=== PATIENT | female | born 1955 | race Caucasian/White ===

== ENCOUNTER → 2016-10-02 | Outpatient (CLI) | payer OTHER ==
[~2016-10-02] MED LIST: ASPI81TA28 PO; ATOR-26 PO; FRRS300 PO; LSN5 PO; MULTTAB58 PO; PANT40TA PO; TPRSR50 PO; TRAM200T16 PO
[2016-10-02 12:12] LABS: BASO % 0.5 %; BASO ABS # 0.03 K/uL (0-0.2); COMPLETE YES; EOS % 2.9 %; HEMATOCRIT 38.5 % (37-47); LYMPH ABS # 2.41 K/uL (1.2-3.4); MEAN CORPUSCULAR HEMOGLOBIN 32.3 pg (25-34); MEAN PLATELET VOLUME 10.8 fL (7.4-10.4); NEUT % 48.6 %; PLATELET COUNT 170 K/uL (130-400); RED BLOOD COUNT 3.93 M/uL (4.2-5.4); WHITE BLOOD COUNT 6.52 K/uL (4.8-10.8)
[2016-10-02 12:28] LABS: ALT/SGPT 50 U/L (12-78); AST/SGOT 29 U/L (15-37); BLOOD UREA NITROGEN 12 mg/dl (7-18); BUN/CREATININE RATIO 13.2 (10-20); CALCIUM 8.8 mg/dl (8.5-10.1); CARBON DIOXIDE 29 mmol/L (21-32); CHLORIDE 108 mmol/L (98-107); CREATININE 0.94 mg/dl (0.60-1.20); GLUCOSE 94 mg/dl (70-99); POTASSIUM 3.9 mmol/L (3.5-5.1); SODIUM 142 mmol/L (136-145)
[2016-10-02 12:39] LABS: ALB/GLOB RATIO 1.2 (0.9-2); ALKALINE PHOSPHATASE 71 U/L (45-117); CHOLESTEROL 149 mg/dl (0-200); CHOLESTEROL/HDL RATIO 1.6; HDL CHOLESTEROL 93 mg/dl; LDL CHOLESTEROL CALCULATED 42 mg/dl; TRIGLYCERIDES 70 mg/dl (0-150); VERY LOW DENSITY LIPOPROT CALC 14 mg/dl
== END | disposition home or self-care (01) ==
LOC: C.LABBFT 07:57
PROVIDERS: ATTEND Physician Assistant Medical
DX: E78.00 Pure hypercholesterolemia, unspecified (principal); M85.80 Other specified disorders of bone density and structure, unspecified site; D64.9 Anemia, unspecified; I25.10 Atherosclerotic heart disease of native coronary artery without angina pectoris

== ENCOUNTER → 2017-02-06 | Outpatient (CLI) | payer OTHER ==
--- NOTE | 2017-02-06 15:20 | MAMMOGRAPHY REPORT ---
BILATERAL DIGITAL SCREENING MAMMOGRAM TOMOSYNTHESIS WITH CAD: 02/06/2017 CLINICAL HISTORY: Routine screening. Patient has no complaints. TECHNIQUE: Breast tomosynthesis in addition to standard 2D mammography was performed. Current study was also evaluated with a Computer Aided Detection (CAD) system. COMPARISON: Comparison is made to exams dated: 11/13/2012 mammogram, 12/12/2010 mammogram - [facility], 02/24/2007, and 09/28/2008. BREAST COMPOSITION: The tissue of both breasts is almost entirely fatty. FINDINGS: No suspicious masses, calcifications, or areas of architectural distortion are noted in ei ther breast. There has been no significant interval change compared to prior exams. IMPRESSION: ACR BI-RADS CATEGORY 1: NEGATIVE There is no mammographic evidence of malignancy. A 1 year screening mammogram is recommended. The pa tient will receive written notification of the results. Approximately 10% of breast cancers are not detected with mammography. A negative mammographic report should not delay biopsy if a clinically suggestive mass is present. Shantel Anne M.D. ah/:02/06/2017 14:57:58 Steam Fitter Supervisor Maintenance: Viviane CAMARGO(Sandeep)(Govind), [facility] letter sent: Normal 1/2 BI-RADS Code: ACR BI-RADS Category 1: Negative
== END | disposition home or self-care (01) ==
LOC: C.MAMM 13:57
PROVIDERS: ATTEND Internal Medicine
DX: Z12.31 Encounter for screening mammogram for malignant neoplasm of breast (principal)

== ENCOUNTER 2017-03-20 07:17 | Inpatient (IN) | payer OTHER ==
[2017-02-28 11:39] VITALS: BMI 37.0
--- NOTE | 2017-02-28 12:19 | PAT Medication Instructions ---
Service Date Feb 28, 2017. Current Home Medication List Acetaminophen W/ Codeine (Acetaminophen/Codeine #3 300-30 mg), 1 TAB PO Q4 PRN for Pain Aspirin (Aspirin Ec), 81 MG PO QPM Atorvastatin (Lipitor), 1 TAB PO HS Doxylamine Succinate (Sleep) (Unisom), 1 TAB PO HS PRN for Sleep Ferrous Sulfate (Ferrous Sulfate), 1 TAB PO QAM Lisinopril (Zestril), 5 MG PO QPM Metoprolol Succinate (Toprol Xl), 1 TAB PO BID Niacin (Niacin), 500 MG PO BID Pantoprazole (Protonix), 40 MG PO BID Pregabalin (Lyrica), 150 MG PO QPM Sucralfate (Carafate), 1 GM PO BID Tramadol Hcl (Tramadol Hcl Er), 200 MG PO DAILY PRN for Pain Medication Instructions For Your Scheduled Surgery - Hold the following medications 24 hours prior to surgery: Lisinopril (Zestril), 5 MG PO QPM Niacin (Niacin), 500 MG PO BID - Hold the following medications the morning of surgery: Sucralfate (Carafate), 1 GM PO BID Ferrous Sulfate (Ferrous Sulfate), 1 TAB PO QAM - Take the following medications the morning of surgery with a sip of water OTHERWISE NOTHING TO EAT OR DRINK AFTER MIDNIGHT: Tramadol Hcl (Tramadol Hcl Er), 200 MG PO DAILY PRN for Pain (may take if needed up to 4 hours prior) Metoprolol Succinate (Toprol Xl), 1 TAB PO BID Pantoprazole (Protonix), 40 MG PO BID Acetaminophen W/ Codeine (Acetaminophen/Codeine #3 300-30 mg), 1 TAB PO Q4 PRN for Pain (may take if needed up to 4 hours prior) - Take the following medications as scheduled the night before surgery: Aspirin (Aspirin Ec), 81 MG PO QPM Atorvastatin (Lipitor), 1 TAB PO HS Doxylamine Succinate (Sleep) (Unisom), 1 TAB PO HS PRN for Sleep Tramadol Hcl (Tramadol Hcl Er), 200 MG PO DAILY PRN for Pain Sucralfate (Carafate), 1 GM PO BID Pregabalin (Lyrica), 150 MG PO QPM Metoprolol Succinate (Toprol Xl), 1 TAB PO BID Pantoprazole (Protonix), 40 MG PO BID Acetaminophen W/ Codeine (Acetaminophen/Codeine #3 300-30 mg), 1 TAB PO Q4 PRN for Pain If you have any questions please call us at [phone] or [phone] or [phone]
--- NOTE | 2017-02-28 13:01 | DIAGNOSTIC IMAGING REPORT ---
CHEST 2 VIEWS ROUTINE CLINICAL HISTORY: PAT preoperative evaluation COMPARISON STUDY: None FINDINGS: Minimal atelectatic change peripheral left lung. Lungs otherwise appear clear. Diaphragms smooth. IMPRESSION: No acute process. The above report was generated using voice recognition software. It may contain grammatical, syntax or spelling errors. Electronically signed by: Riley Falcon M.D. 02/28/2017 1:00 PM Dictated Date/Time: 02/28/2017 12:59 PM
[2017-02-28 13:39] LABS: BASO % 0.5 %; BASO ABS # 0.03 K/uL (0-0.2); EOS % 3.1 %; EOS ABS # 0.19 K/uL (0-0.5); HEMATOCRIT 40.9 % (37-47); HEMOGLOBIN 13.4 g/dL (12.0-16.0); IG# 0.01 K/uL (0.00-0.02); LYMPH % 47.1 %; LYMPH ABS # 2.88 K/uL (1.2-3.4); MEAN CELL VOLUME 98.6 fL (80-100); MEAN CORPUSCULAR HEMOGLOBIN 32.3 pg (25-34); MEAN CORPUSCULAR HGB CONC 32.8 g/dl (32-36); MONO % 12.3 %; MONO ABS # 0.75 K/uL (0.11-0.59); NEUT % 36.8 %; NEUT ABS # 2.26 K/uL (1.4-6.5); PLATELET COUNT 148 K/uL (130-400); RED CELL DISTRIBUTION WIDTH CV 14.5 % (11.5-14.5); RED CELL DISTRIBUTION WIDTH SD 51.5 fL (36.4-46.3); WHITE BLOOD COUNT 6.12 K/uL (4.8-10.8)
[2017-02-28 13:52] LABS: CALCIUM 9.2 mg/dl (8.5-10.1); CREATININE 0.86 mg/dl (0.60-1.20); POTASSIUM 4.3 mmol/L (3.5-5.1)
[2017-02-28 13:58] LABS: INR 1.2 (0.9-1.1); PTT PATIENT 22.9 SECONDS (21.0-31.0)
--- NOTE | 2017-03-15 08:12 | HISTORY & PHYSICAL EXAMINATION ---
DATE OF ADMISSION: 03/20/2017 CHIEF COMPLAINT: Bilateral knee pain and discomfort, right side greater than left. 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 She has got a long history of bilateral knee pain and discomfort managed by my partner Dr. Pineda. She has had an injection, which become less successful over time. The right knee bothers her quite a bit more than left. She has global pain. It is increased with weightbearing. 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 She has nighttime pain. She would like to proceed with surgical treatment. PAST MEDICAL HISTORY: Includes, 1. Unspecified [place] with current residual symptoms, followed by Dr. Smith. 2. Obesity with a BMI of 36.6. 3. Gastroesophageal reflux disease. 4. Low back pain. 5. A quarter pack history of smoking. PAST SURGICAL HISTORY: Includes, 1. Laparoscopic cholecystectomy. 2. Carpal tunnel release. 3. Back surgery x2. 4. Jaw surgery. ALLERGIES: None. CURRENT MEDICINES: Include, 1. Niacin. 2. Diclofenac. 3. Protonix. 4. Lisinopril. 5. Metoprolol. 6. Tramadol. 7. Aspirin. 8. Lyrica. SOCIAL HISTORY: A 61-year-old female. 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 She is from [place]. She is . Two drinks per day. Apparently, she has a quarter pack history of smoking. FAMILY HISTORY: Significant for heart disease and colon cancer. REVIEW OF SYSTEMS: Negative for diabetes. She does have occasional reflux and heartburn. She has a cardiac history, followed by Dr. Smith. No current chest pain or shortness of breath. No history of DVT or PE. PHYSICAL EXAMINATION: GENERAL: Reveals a healthy, pleasant, middle-aged female. She looks to be in pretty good health. HEENT: Benign. NECK: Supple. No lymphadenopathy. LUNGS: Clear to auscultation. HEART: Has a regular rate and rhythm. ABDOMEN: Soft, nontender, and nondistended. EXTREMITIES: Grossly neurovascularly intact except as follows: Examination of both legs reveals that the patient walks with a slight valgus alignment to both her knees. She has got a moderate sized soft tissue envelop bilaterally. Range of motion is pretty symmetrically about 5 degrees short of full extension to 120 degrees of flexion bilaterally. No pain with hip motion on either side. Small knee effusions bilaterally. X-RAYS: X-rays of the right knee revealed advanced knee DJD. She has got complete loss of her lateral joint space. She does have tricompartmental disease. 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 She has failed conservative treatment and would like to have her right knee replaced. PLAN: We are going to take her to the operating room and do a right total knee replacement. The risks and benefits of this procedure were explained to the patient, including but not limited to DVT, PE, , infection, neurological injury, vascular injury, bleeding problems, pain, limited range of motion, stiffness, failure to relieve symptoms, incomplete relief of symptoms, need for further surgery in the future, fracture, leg length inequality, nerve palsy, etc. The patient understands and desires to proceed. Informed consent was obtained. As far as pain control, we are going to probably use Vicodin as she has done okay with that in the past. She knows to hold her lisinopril and diclofenac 2 weeks preop and she will take her metoprolol on the morning of surgery. She is planning to be discharged to home using [facility] home health program.
[~2017-03-20] VITALS: Ht 154.9 cm; Wt 87.8 kg
[2017-03-20] VITALS (11 sets, daily range): BP systolic 88–118; BP diastolic 40–75; PULSE 45–81; TEMP 36.3–37.9; O2SAT 93–100; Ht 154.9 cm; Wt 87.8 kg
[~2017-03-20 07:17] MED LIST changes: +ACET-1056 PO; +ACETAMINOPHEN 500 MG TAB PO SCH; +BUPIVACAINE 0.5 % 5 MG/1 ML PF 10ML VIAL ONE; +BUPIVACAINE LIPOSOME 266 MG, BUPIVACAINE/EPINEPHRINE INJ 50 ML, SODIUM CHLORIDE 0.9% PF... INFIL SCH; +CEFAZOLIN 2000MG IV PUSH 10 ML IV SCH; +DOXY25TA7 PO; +FAMOTIDINE 20 MG TAB PO SCH; +GABAPENTIN 300 MG CAP PO SCH; +LACTATED RINGER'S 1000ML 1,000 ML IV SCH; +LACTATED RINGER'S 1000ML 500 ML IV ONE; +LACTATED RINGER'S 1000ML IV SCH; +LISI-729 PO; -LSN5 PO; +METO25TA3 PO; +METOCLOPRAMIDE HCL 10 MG TAB PO SCH; -MULTTAB58 PO; +NIAC500T11 PO; +PREG1CAP70 PO; +SCOPOLAMINE 1.5 MG TDSY TD SCH; +SUCR1TAB29 PO; -TPRSR50 PO; +TRANEXAMIC ACID INJ 1,000 MG in SYRINGE 0 ML IV SCH
[2017-03-20] MEDS ORDERED: MIDAZOLAM HCL 1 MG/ML 2ML VIAL ONE ×3 (07:44→10:53)
[2017-03-20] MEDS ORDERED: FENTANYL CITRATE INJ 50 MCG/1 ML 2 ML VIAL ONE (07:45)
[2017-03-20] MEDS ORDERED: SODIUM CHLORIDE 0.9% PF 50 ML VIAL ONE (08:09)
[2017-03-20] MEDS ORDERED: BUPIVACAINE LIPOSOME 1/3% 266 MG/20 ML VIAL INFIL ONE (08:09)
[2017-03-20] MEDS ORDERED: BACITRACIN 50000 UNIT VIAL ONE (08:09)
[2017-03-20] MEDS ORDERED: BUPIVACAINE/EPINEPHRINE 0.25% 1:200,000 30 ML VIAL ONE (08:09)
--- NOTE | 2017-03-20 08:38 | History & Physical Bridge Note ---
H&P Re-Evaluation Bridge Note: I have examined the patient, reviewed the History & Physical and in the interval since the performance of the History & Physical I have noted the following changes of clinical significance: No changes noted
[2017-03-20] MEDS ORDERED: EpHEDrine SULFATE INJ 50 MG/ML AMP IV PRN (09:00)
[2017-03-20] MEDS ORDERED: ATROPINE SULFATE 0.1 MG/ML 5ML SYR IV PRN (09:00)
[2017-03-20] MEDS ORDERED: ONDANSETRON INJ 2 MG/ML 2 ML VIAL IV PRN ×2 (09:00→12:00)
[2017-03-20] MEDS ORDERED: FENTANYL CITRATE INJ 50 MCG/1 ML 2 ML VIAL IV PRN (09:00)
--- NOTE | 2017-03-20 11:55 | [facility] Post Operative Brief Note ---
Immediate Operative Summary Operative Date Mar 20, 2017. Pre-Operative Diagnosis Right Knee Advanced Degenerative Joint Disease Post-Operative Diagnosis Right Knee Advanced Degenerative Joint Disease Procedure(s) Performed Right Total Knee Arthroplasty Surgeon Dr. Franco Dredge Pipe Installer Surgeon(s) HENRIETTA Alaniz Estimated Blood Loss 50ml Findings Right Knee DJD Fluids (cc crystalloids) 1300 cc Specimens A. Right Knee Bone and Tissue Drains None Anesthesia Spinal Complication(s) None Disposition Recovery Room / PACU
[2017-03-20] MEDS ORDERED: ALUMINUM/MAGNESIUM/SIMETH (MAALOX MAX) 30 ML UDC PO PRN (12:00)
[2017-03-20] MEDS ORDERED: METOCLOPRAMIDE HCL INJ 5 MG/ML 2 ML VIAL IV PRN (12:00)
[2017-03-20] MEDS ORDERED: HYDROCODONE/ACETAMOPHEN 5/325MG TAB PO PRN (12:00)
[2017-03-20] MEDS ORDERED: DiphenhydrAMINE HCL 50 MG/ML VIAL IV PRN (12:00)
[2017-03-20] MEDS ORDERED: ZOLPIDEM TARTRATE 5 MG TAB PO PRN (12:00)
[2017-03-20] MEDS ORDERED: MoRPHine SULFATE 2 MG/ML CARP IV PRN (12:00)
[2017-03-20] MEDS ORDERED: SILVER SULFADIAZINE 1% CR 50 GM JAR EXT PRN (12:00)
[2017-03-20] MEDS ORDERED: MAGNESIUM HYDROXIDE SUSP 30 ML UDC PO PRN (12:00)
[2017-03-20] MEDS ORDERED: BISACODYL 10 MG SUPP PR PRN (12:00)
--- NOTE | 2017-03-20 12:31 | DIAGNOSTIC IMAGING REPORT ---
RIGHT KNEE 2 VIEWS History: Right total knee arthroplasty. Degenerative arthritis. Postop. FINDINGS: The patient is status post a right total knee arthroplasty. The hardware is intact. No fracture or dislocation. Skin jillian are in place. IMPRESSION: Right total knee arthroplasty. No evidence for hardware complication. Electronically signed by: Luis Alfredo Jackson M.D. 03/20/2017 12:29 PM Dictated Date/Time: 03/20/2017 12:29 PM
[2017-03-20] MEDS: D5W AND 1/2NSS + 20MEQ KCL 1,000 ML IV SCH ×2 (13:42→23:08)
[2017-03-20] MEDS: KETOROLAC TROMETHAMINE 30 MG/ML VIAL IV. SCH ×2 (13:47→20:35)
--- NOTE | 2017-03-20 13:47 | Anesthesiology Progress Note ---
Anesthesia Post Op Note Date & Time Mar 20, 2017 at 13:47 Vital Signs Pain Intensity: 0.0 Vital Signs Past 12 Hours Date Time Temp Pulse Resp B/P (MAP) Pulse Ox O2 Delivery O2 Flow Rate FiO2 03/20/17 13:39 53 16 95/55 (68) 94 Nasal Cannula 2.0 03/20/17 13:18 61 16 92/57 (69) 100 Nasal Cannula 2.0 03/20/17 13:15 96 Nasal Cannula 2.0 03/20/17 12:45 36.3 45 16 99/66 (77) 96 Nasal Cannula 2.0 03/20/17 12:30 36.2 48 14 92/60 100 Nasal Cannula 2 03/20/17 12:22 104/49 03/20/17 12:20 59 18 87/61 100 Nasal Cannula 2 03/20/17 12:10 46 12 102/44 96 Nasal Cannula 2 03/20/17 12:02 36.4 52 14 108/52 97 Nasal Cannula 2 03/20/17 07:56 36.4 69 18 94/54 97 Room Air Notes Mental Status: alert / awake / arousable, participated in evaluation Pt Amnestic to Procedure: Yes Nausea / Vomiting: adequately controlled Pain: adequately controlled Airway Patency, RR, SpO2: stable & adequate BP & HR: stable & adequate Hydration State: stable & adequate Neuraxial Anesthesia: was administered, sensory block is resolving Anesthetic Complications: no major complications apparent
--- NOTE | 2017-03-20 15:23 | OPERATIVE REPORT ---
DATE OF OPERATION: 03/20/2017 PREOPERATIVE DIAGNOSIS: Right knee degenerative joint disease. POSTOPERATIVE DIAGNOSIS: Same. PROCEDURE PERFORMED: Right cemented posterior stabilized total knee arthroplasty. SURGEON: Sami Franco M.D. PRENATAL TEACHER: Wayne Rogers PA-C. COMPLICATIONS: None. ESTIMATED BLOOD LOSS: 50 mL. FLUID REPLACEMENT: 1300 mL crystalloid fluid replacement. TOURNIQUET TIME: 55 minutes at 300 mmHg. ANESTHESIA: Spinal with adductor canal block. DRAINS: None. SPECIMENS: Right knee sent for pathology. 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 She has been managed by my partner Dr. Pineda over time. Her pain became more debilitating and limiting her activities. She elected to proceed with total knee arthroplasty. OPERATIVE FINDINGS: Operative findings revealed advanced right knee DJD. He had extensive grade 4 changes of the patellofemoral joint. She also had extensive grade 4 changes of the lateral compartment. The patellofemoral compartment was the worst. She had a valgus deformity to her knee, a moderate joint effusion. She did have some moderate synovitis as well. OPERATIVE IMPLANTS: 1. Biomet Vanguard size 60 right posterior stabilized femoral component. 2. Biomet size 67 tibial tray. 3. A 12 mm posterior stabilized polyethylene insert. 4. A 31 x 8 all poly patella. OPERATIVE PROCEDURE: The patient was taken to the operating room, identified and placed on the operating room table in supine position. All contact areas were appropriately padded. IV antibiotics were provided by anesthesia team. A spinal anesthetic and adductor canal block had been provided in the holding area. A Frederick catheter was placed in sterile fashion. A right thigh tourniquet was then placed and the right lower extremity was then prepped and draped in the usual sterile fashion. The right leg was elevated and exsanguinated with Esmarch and tourniquet was placed at 300 mmHg. An anterior approach to the right knee was then performed through a longitudinal incision centered over the patella. Sharp dissection was carried down through the subcutaneous tissues down to the level of the extensor mechanism. Medial parapatellar arthrotomy incision was made. Some subperiosteal dissection was carried out medially. The fat pad was resected from beneath the patellar tendon. The lateral patellofemoral ligament was released. The patella was everted and knee was flexed. The osteophytes were taken off the distal femur. The ACL and PCL were then released from the distal femur and the tibia subluxated anteriorly. The external tibial alignment jig was then placed in the anterior face of the tibia and adjusted 12 mm medially. Proximal tibial cut was made to remove about 3-4 mm of bone from the most deficient aspect of the medial tibial plateau. Tibia was sized to a size 67. Attention was then drawn to the femur. The distal femur was entered with a sharp drill bit and intramedullary canal was suctioned. A right 5 degree valgus cutting guide was placed. Distal femoral cutting block was pinned in place. Distal femoral cut was made to take an additional 3 mm of bone off the distal femur. The femur was then sized to a size 60. It sized exactly to a 60. The AP cutting block was pinned parallel to the epicondylar axis which was 3 degrees of external rotation. The anterior cut, anterior chamfer, posterior cut, posterior chamfer cuts were made. A box cutting guide was placed and adjusted slightly lateral and the box cut was made. The knee was brought out into extension. I did release some of the IT band and posterior capsule in order to equalize the extension gap. Great care was taken throughout to protect the peroneal nerve during this procedure. The knee was flexed and the popliteus was released to equalize the flexion gap. Trial femoral component was placed. The tibial tray was pinned in maximum external rotation and the drill and stem punch were used to create defect in the proximal tibia for the tibial tray. The knee was then trialed and the 12 mm insert fit most appropriately. Attention was then drawn to the patella. The patella was cleaned of all soft tissues. The patella thickness measured 21 mm, cut down to 13. It was sized to a size 31 patella. Lug holes were drilled for 31 patella. The lateral osteophyte was removed. Patella button was placed. The knee was taken through range of motion. The patella tracked nicely with no thumbs test. Attention was then drawn toward placement of the permanent components. All trial components were removed. A bone plug was placed in the distal femur to limit blood loss. A double batch of Palacos G cement was mixed. A right size 60 posterior stabilized femoral component, size 67 tibial tray, a 12 mm posterior stabilized polyethylene insert, and a 31 x 8 all poly patella were then cemented in place. The knee was brought out into extension until the cement hardened. A final cement check was then performed. The pericapsular tissues were injected with a total of 100 mL of combination of 20 mL of Exparel, 30 mL of normal saline, 50 mL of 0.25% Marcaine with epinephrine. The patient did receive 1 gram of tranexamic acid. The tourniquet was then let down for a final tourniquet time of 55 minutes. Hemostasis was assured with use of electrocautery. The extensor mechanism was then closed with combination of #1 PDS suture and #1 Vicryl suture in [id number] fashion. The extensor mechanism was checked and found to be intact. The subcutaneous tissues were then closed with 2-0 Dexon suture in a buried interrupted fashion and the skin was closed with skin jillian. The leg was then cleaned and dried and a sterile dressing with Xeroform, 4x4s, sterile cast padding and Mendez bandage were applied. The patient was then transferred to the recovery room in stable condition. The patient tolerated the procedure with no complications. All needle and sponge counts were correct at the end of the operation. I attest to the content of the Intraoperative Record and any orders documented therein. Any exception s are noted below.
[2017-03-20] MEDS: CHECK SCOPOLAMINE PATCH PLACEMENT SCH ×2 (15:51→23:07)
[2017-03-20] MEDS: FERROUS GLUCONATE 324 MG TAB PO SCH (17:33)
[2017-03-20] MEDS: CEFAZOLIN IV 2,000 MG in SYRINGE 0 ML IV SCH (17:57)
[2017-03-20] MEDS ORDERED: TRANEXAMIC ACID INJ 1,000 MG in SODIUM CHLORIDE 0.9% 100ML 100 ML IV SCH (18:00)
[2017-03-20] MEDS: PANTOprazole SOD 40 MG TAB PO SCH (20:36)
[2017-03-20] MEDS: SUCRALFATE 1 GM TAB PO SCH (20:36)
[2017-03-20] MEDS: PREGABALIN 150 MG CAP PO SCH (20:38)
[2017-03-20] MEDS: TAPENTADOL ER 50 MG TABCR PO SCH (20:38)
[2017-03-20] MEDS: NIACIN 500 MG TAB IMMEDIATE RELEASE PO SCH (20:39)
[2017-03-20] MEDS: LISINOPRIL 5 MG TAB PO SCH (21:00)
[2017-03-20] MEDS ORDERED: ASPEC325 PO (21:43)
[2017-03-20] MEDS ORDERED: HYDR-5688 PO (21:43)
--- NOTE | 2017-03-20 21:46 | Discharge Instructions ---
Discharge Instructions Date of Service Mar 20, 2017. Admission Reason for Admission: Right Knee Degenerative Joint Disease Discharge Discharge Diagnosis / Problem: Right Knee Replacement Discharge Goals Goal(s): Decrease discomfort, Improve function, Increase independence, Improve disease control, Therapeutic intervention Activity Recommendations Activity Limitations: per Instructions/Follow-up section Weightbearing Status: Right weightbearing . Instructions / Follow-Up Instructions / Follow-Up ACTIVITY RECOMMENDATIONS: Physical Therapy: * You will go to physical therapy three times each week for four to six weeks after your surgery in order to regain your knee range of motion and to retrain your knee to work properly. * It is just as important to make sure you are getting your knee perfectly straight as it is to regain your knee bend. * Taking a pain pill an hour before therapy can help you have a more productive and comfortable therapy session. Home Exercise: * You were shown a series of exercises (heel props, heel slides, etc.) in the hospital. Do these exercises three to four times each day including the exercises you were shown in physical therapy. Walking: * Get up and walk several times each day. For the first four weeks, try not to stand or walk for more than one hour at a time. If you do stand or walk for more than one hour, you will not hurt anything, but your knee and leg will likely swell. * As you feel comfortable, you may change from the walker or crutches to a cane and then to independent walking. MEDICATIONS: New Medicine: * You will likely be taking one or more of these medications: 1. Vicoden/Mad[place] - A quick and shorter-acting pain medication. Take one to two tablets every four to six hours to lessen your pain. 2. Iron Sulfate - take each day for the month after surgery to help you replace the blood lost during surgery. 3. Aspirin - Thins your blood to lessen the chance of forming a blood clot. * The most common side effects of pain medicine and iron are nausea and constipation. If nausea or constipation is too much of a problem or if you have any questions about your new medicines or doses, call [facility] at . We will try to help you manage these issues. VERY IMPORTANT TO READ AND REVIEW" Pain: * The immediate post-operative period after knee replacement surgery is often quite painful. * You are given a prescription for pain medicine. You should take it, as directed, when you need it, especially before physical therapy and before going to bed. Pain that interferes with sleep is very common and can last several months. * You will likely need pain medicine for the first four to six weeks. It will not stop all of the pain. The pain will lessen and as you feel better, you may change to milder pain medicine such as Tylenol. * The most common side effects of pain medicine are nausea and constipation, so don't take more than you need. SPECIAL CARE INSTRUCTIONS: TEDs/Elastic Stockings: * The white elastic stockings help limit swelling and prevent blood clots from forming in your legs. The more you wear them, the more they work. * Wear them for six weeks after knee replacement surgery and four weeks after partial knee replacement. Prevention of Infection: * Take antibiotics one hour before any dental cleaning, dental work, urological procedure, gastrointestinal procedure or any invasive surgery in order to prevent your new joint from getting infected. * You may get the antibiotics from the doctor performing the procedure or you may call our office at before and we will call in a prescription to the pharmacy of your choice. Things to Watch For: * Drainage from the incision site that occurs more than one week after your surgery. * Severely increased knee/leg pain or swelling. * Increased redness at the incision site. * Fever above 102 degrees Fahrenheit. * Unusual chest pain or shortness of breath. * Unusual pain or burning with urination. Call [facility] at with any of the above problems or if you have any questions about your medicines or recovery. FOLLOW UP VISIT: Make an appointment to see your doctor for approximately two weeks after surgery for a progress check and staple removal by calling the office at . Current Hospital Diet Patient's current hospital diet: Regular Diet Discharge Diet Recommended Diet: Regular Diet Procedures Procedures Performed: Right Total Knee Arthroplasty Pending Studies Studies pending at discharge: no Medical Emergencies . Who to Call and When: Medical Emergencies: If at any time you feel your situation is an emergency, please call [phone] immediately. . Non-Emergent Contact Non-Emergency issues call your: Surgeon . "Provider Documentation" section prepared by Sami Franco. . VTE Core Measure Inpt VTE Proph given/why not?: Other Anticoagulation, T.E.D. Stockings, SCD's
[2017-03-20] MEDS: ATORVASTATIN 40 MG TAB PO SCH (21:53)
[2017-03-20] MEDS: ASPIRIN 325 MG ECTAB PO SCH (21:54)
[2017-03-20] MEDS: SENNA 8.6 MG TAB PO SCH (21:54)
[2017-03-20] MEDS: DOCUSATE SODIUM 100 MG CAP PO SCH (21:55)
[2017-03-20] MEDS: METOPROLOL SUCC 25MG EXT REL TAB PO SCH (21:56)
--- NOTE | 2017-03-20 22:38 | PROGRESS NOTE ---
DATE: 03/20/2017 SUBJECTIVE: A 61-year-old female postop from a right knee replacement. She is doing well. Just starting to get the feeling back in her leg. No chest pain or shortness of breath. Not feeling dizzy or lightheaded. OBJECTIVE: VITAL SIGNS: Temperature 36.4. Vital signs stable. A little bradycardic. GENERAL: Pleasant, middle-aged female. She is lying in bed and I had to wake her this afternoon. LUNGS: Clear to auscultation. HEART: Regular rate and rhythm. ABDOMEN: Soft, nontender, nondistended. EXTREMITIES: Grossly neurovascularly intact except as follows. Examination of the right leg reveals the dressing to be clean, dry and intact. She can dorsiflex and plantar flex her foot appropriately. She does have sensation in her foot. She has got brisk refill. X-RAYS: X-rays of the right knee from today are reviewed. It shows a cemented posterior total knee arthroplasty. Components looked to be in good position. No signs of problems. ASSESSMENT: A 61-year-old female postop from a right knee replacement, doing well. The feeling is just coming back in her leg. She appears neurologically intact. Pain is controlled. PLAN: 1. Deep venous thrombosis prophylaxis including thigh-high TEDs, SCDs, and aspirin twice a day. 2. PT/OT. Weightbearing as tolerated. Right total knee protocol. 3. Pain control, doing pretty well with current pain regimen. 4. IV antibiotics x24 hours. 5. Disposition. Plan to discharge to home and she will likely have home health or do outpatient therapy depending on how she does in the next 24 hours.
[2017-03-21] VITALS (11 sets, daily range): BP systolic 101–127; BP diastolic 66–75; PULSE 73–95; TEMP 37–38.4; O2SAT 93–97
[2017-03-21] MEDS: KETOROLAC TROMETHAMINE 30 MG/ML VIAL IV. SCH ×5 (01:53→19:31)
[2017-03-21] MEDS: CEFAZOLIN IV 2,000 MG in SYRINGE 0 ML IV SCH (01:53)
[2017-03-21 06:01] LABS: HEMATOCRIT 35.2 % (37-47); HEMOGLOBIN 11.9 g/dL (12.0-16.0); MEAN CELL VOLUME 93.6 fL (80-100); MEAN CORPUSCULAR HEMOGLOBIN 31.6 pg (25-34); MEAN CORPUSCULAR HGB CONC 33.8 g/dl (32-36); MEAN PLATELET VOLUME 9.6 fL (7.4-10.4); PLATELET COUNT 152 K/uL (130-400); RED CELL DISTRIBUTION WIDTH CV 13.4 % (11.5-14.5); RED CELL DISTRIBUTION WIDTH SD 46.2 fL (36.4-46.3); WHITE BLOOD COUNT 5.04 K/uL (4.8-10.8)
[2017-03-21 06:36] LABS: CALCIUM 8.6 mg/dl (8.5-10.1); CREATININE 1.02 mg/dl (0.60-1.20)
[2017-03-21] MEDS: CHECK SCOPOLAMINE PATCH PLACEMENT SCH ×2 (08:00→15:49)
--- NOTE | 2017-03-21 08:13 | PROGRESS NOTE ---
DATE: 03/21/2017 SUBJECTIVE: 61-year-old female postop day 1 from a right knee replacement. She is doing pretty well. Pain is controlled. Had pretty good night. No chest pain or shortness of breath. Not feeling dizzy or lightheaded. OBJECTIVE: VITAL SIGNS: Temperature 37.4. Vital signs stable. GENERAL: Reveals a healthy, pleasant 61-year-old female. She is lying in bed, looks pretty comfortable. EXTREMITIES: Examination of the right leg reveals dressing clean, dry and intact. She can dorsiflex and plantarflex her foot appropriately. She is neurologically intact. LABORATORY DATA: Hemoglobin 11.9, hematocrit 35.2. Electrolytes are stable. ASSESSMENT: 61-year-old female postop day 1 from right knee replacement, doing pretty well. PLAN: 1. DVT prophylaxis including thigh high TEDs, SCDs, and aspirin twice a day. 2. PT, OT. Weightbearing as tolerated. Right total knee protocol. 3. Pain control, doing pretty well with current pain regimen. 4. Disposition: She is planning to be discharge to home with some home health once adequately recovered.
--- NOTE | 2017-03-21 08:33 | Anesthesiology Progress Note ---
Anesthesia Post Op Note Date & Time Mar 21, 2017 at 08:32 Vital Signs Pain Intensity: 4.0 Vital Signs Past 12 Hours Date Time Temp Pulse Resp B/P (MAP) Pulse Ox O2 Delivery O2 Flow Rate FiO2 03/21/17 07:54 37.3 73 16 117/74 (88) 97 Room Air 03/21/17 03:15 37.4 03/21/17 03:14 37.7 73 16 104/66 (79) 93 Room Air 03/20/17 23:32 37.3 03/20/17 23:29 37.9 81 16 109/70 (83) 93 Room Air 03/20/17 21:50 78 109/67 (81) Notes Mental Status: alert / awake / arousable, participated in evaluation Pt Amnestic to Procedure: Yes Nausea / Vomiting: adequately controlled Pain: adequately controlled Airway Patency, RR, SpO2: stable & adequate BP & HR: stable & adequate Hydration State: stable & adequate Neuraxial Anesthesia: sensory block resolved Anesthetic Complications: no major complications apparent
[2017-03-21] MEDS ORDERED: PANTOprazole SOD 40 MG TAB PO SCH (09:00)
[2017-03-21] MEDS: ASPIRIN 325 MG ECTAB PO SCH ×2 (09:16→20:48)
[2017-03-21] MEDS: METOPROLOL SUCC 25MG EXT REL TAB PO SCH ×2 (09:16→20:50)
[2017-03-21] MEDS: DOCUSATE SODIUM 100 MG CAP PO SCH ×2 (09:16→20:48)
[2017-03-21] MEDS: D5W AND 1/2NSS + 20MEQ KCL 1,000 ML IV SCH (09:16)
[2017-03-21] MEDS: SUCRALFATE 1 GM TAB PO SCH ×2 (09:17→20:48)
[2017-03-21] MEDS: PANTOprazole SOD 40 MG TAB PO SCH ×2 (09:17→20:49)
[2017-03-21] MEDS: NIACIN 500 MG TAB IMMEDIATE RELEASE PO SCH ×2 (09:17→20:49)
[2017-03-21] MEDS: TAPENTADOL ER 50 MG TABCR PO SCH ×2 (09:25→20:49)
[2017-03-21] MEDS: MULTIVITAMIN TAB PO SCH (10:18)
[2017-03-21] MEDS: FERROUS GLUCONATE 324 MG TAB PO SCH ×3 (10:18→17:53)
[2017-03-21] MEDS: SENNA 8.6 MG TAB PO SCH (20:49)
[2017-03-21] MEDS: ATORVASTATIN 40 MG TAB PO SCH (20:49)
[2017-03-21] MEDS: PREGABALIN 150 MG CAP PO SCH (20:49)
[2017-03-21] MEDS: LISINOPRIL 5 MG TAB PO SCH (20:50)
[2017-03-22] MEDS: KETOROLAC TROMETHAMINE 30 MG/ML VIAL IV. SCH ×2 (02:00→08:00)
[2017-03-22 07:39] VITALS: BP 116/66; PULSE 91; TEMP 37.8; O2SAT 93
[2017-03-22] MEDS: CHECK SCOPOLAMINE PATCH PLACEMENT SCH ×2 (08:12)
[2017-03-22] MEDS: ASPIRIN 325 MG ECTAB PO SCH (08:35)
[2017-03-22] MEDS: FERROUS GLUCONATE 324 MG TAB PO SCH (08:35)
[2017-03-22] MEDS: DOCUSATE SODIUM 100 MG CAP PO SCH (08:35)
[2017-03-22] MEDS: PANTOprazole SOD 40 MG TAB PO SCH (08:35)
[2017-03-22] MEDS: METOPROLOL SUCC 25MG EXT REL TAB PO SCH (08:36)
[2017-03-22] MEDS: MULTIVITAMIN TAB PO SCH (08:36)
[2017-03-22] MEDS: TAPENTADOL ER 50 MG TABCR PO SCH (08:36)
[2017-03-22] MEDS: SUCRALFATE 1 GM TAB PO SCH (08:36)
[2017-03-22] MEDS: NIACIN 500 MG TAB IMMEDIATE RELEASE PO SCH (08:36)
[2017-03-22 12:34] VITALS: BP 116/66; PULSE 91; TEMP 37.8; O2SAT 93
--- NOTE | 2017-04-01 15:44 | DISCHARGE SUMMARY ---
ADMITTING PHYSICIAN AND SURGEON: Dr. Franco. ADMITTING DIAGNOSIS: Right knee degenerative joint disease. SURGERY PERFORMED: Right total knee arthroplasty. SECONDARY DIAGNOSES: Myocardial infarction, obesity, gastroesophageal reflux disease, low back pain and smoking history. CONSULTS: None obtained. HISTORY AND PHYSICAL EXAMINATION: Well documented in the patient's chart. HOSPITAL COURSE: The patient admitted on 03/20/2017 and underwent a total knee arthroplasty, tolerated the procedure well and there were no complications. She was transferred to PACU postoperatively and later to the orthopedic floor for further care. She was given Ancef for antibiotic prophylaxis; ISABEL stockings, SCDs and aspirin for DVT prophylaxis. Hemoglobin, hematocrit and vital signs were monitored during her hospital stay and remained stable. She did not require blood transfusions. There were no complications. By postoperative day #2, she was tolerating a regular diet, pain was controlled with oral pain medicine; she was participating in physical therapy and had no signs or symptoms of deep vein thrombosis. On postop day #2, she was discharged home and set up with home health services. She was given printed discharge instructions including new prescriptions for aspirin 325 mg b.i.d., [place] for pain. Continue her home medications with the exception of her home doses of aspirin and Tylenol with codeine, which she was instructed to stop. Continue physical therapy, weightbearing as tolerated and ISABEL stockings. Follow up in 10-12 days or sooner if there are any problems or concerns.
== END 2017-03-22 15:00 | disposition home health service (06) | DRG 470 ==
LOC: C.ACU 07:17 → C.3E 11:59 → ENRESERV 12:26
PROVIDERS: ADMIT Orthopaedic Surgery Sports Medicine; ATTEND Orthopaedic Surgery Sports Medicine
PROC: 0SRC0J9 Replacement of Right Knee Joint with Synthetic Substitute, Cemented, Open Approach (ICD-10-PCS; principal; 2017-03-20 09:30)
DX: M17.11 Unilateral primary osteoarthritis, right knee (principal); I25.2 Old myocardial infarction; E66.9 Obesity, unspecified; Z68.36 Body mass index [BMI] 36.0-36.9, adult; K21.9 Gastro-esophageal reflux disease without esophagitis; Z79.82 Long term (current) use of aspirin; Z82.49 Family history of ischemic heart disease and other diseases of the circulatory system; Z80.0 Family history of malignant neoplasm of digestive organs

== ENCOUNTER 2018-05-15 05:48 | Inpatient (IN) ==
[2018-05-15] MEDS ORDERED: KETOROLAC TROMETHAMINE 15 MG/ML VIAL IV STA (06:02)
[2018-05-15] MEDS ORDERED: METOCLOPRAMIDE HCL INJ 5 MG/ML 2 ML VIAL IV STA (06:02)
[2018-05-15] MEDS ORDERED: DiphenhydrAMINE HCL 50 MG/ML VIAL IV STA (06:02)
[2018-05-15] MEDS ORDERED: DICYCLOMINE HCL 10 MG/ML 2 ML AMP/VIAL IM ONE (06:02)
--- NOTE | 2018-05-15 06:11 | Emergency Department Note ---
History of Present Illness General Chief complaint: Abdominal Pain Stated complaint: ADOMINAL PAIN Time Seen by Provider: 05/15/18 07:03 History of Present Illness Maximum Pain Intensity: 9 This 63-year-old presents to the ER complaining of vomiting and abdominal pain Location: Abdomen Quality: Crampy Severity: Moderate Duration: 3 days Timin days ago Context: Abdominal pain got worse and patient came in Modifying factors: better with nothing; worse with palpation Patient states Saturday she started with vomiting and then the pain developed. Patient denies chest pain, dyspnea, fevers, diarrhea, back pain, urinary symptoms, flulike illness. Colonoscopy in the past was normal. No history of diverticulitis. Home Medications Home Medications Medication Instructions Recorded Confirmed Type aspirin 81 mg tablet,delayed 81 mg PO DAILY 01/13/18 05/15/18 History release atorvastatin 80 mg tablet 80 mg PO HS tab 01/13/18 05/15/18 History lisinopril 5 mg tablet 5 mg PO DAILY 01/13/18 05/15/18 History niacin 500 mg tablet 500 mg PO BID tab 01/13/18 05/15/18 History sucralfate 1 gram tablet 2 gm PO BID tab 01/13/18 05/15/18 History tramadol ER 200 mg tablet,extended 200 mg PO DAILY PRN 01/13/18 05/15/18 History release 24 hr metoprolol tartrate 25 mg PO BID 05/15/18 05/15/18 History pregabalin [Lyrica] 225 mg PO BID 05/15/18 05/15/18 History tramadol 50 mg PO Q6H PRN 05/15/18 05/15/18 History Allergies Allergy/AdvReac Type Severity Reaction Status Date / Time Iodinated Contrast- Oral and Allergy Mild rash Unverified 05/15/18 19:05 IV Dye tapentadol [From Nucynta] AdvReac Unknown Confusion Verified 05/15/18 06:44 Past Med/Surg History Medical History Epidural fibrosis (Chronic) left S1 nerve Tobacco use (Chronic) Obesity (Chronic) Osteoarthritis (Chronic) GERD (gastroesophageal reflux disease) (Chronic) Hyperlipidemia (Chronic) Hypertension (Chronic) Lumbar postlaminectomy syndrome (Chronic) Left lumbar radiculitis (Chronic) Myofascial pain (Chronic) Cervicalgia (Chronic) Cervical facet syndrome (Chronic) Cervical spinal stenosis (Chronic) C5-6 History of VT (myocardial infarction) (Chronic) CAD (coronary artery disease) (Chronic) Cervical radiculitis (Resolved) Surgical History H/O heart artery stent (Resolved) History of PTCA (Resolved) History of bilateral tubal ligation (Resolved) History of carpal tunnel release (Resolved) History of cholecystectomy (Resolved) History of lumbar fusion (Resolved) Posterior decompression and instrumented fusion of L4-S1 03/19/2014 Dr. Montesinos History of mandibular surgery (Resolved) S/P lumbar laminectomy (Resolved 03/19/14) S/P total knee arthroplasty (Resolved) Right Social History Current Living Situation: Spouse Other Information That Helps Us Care for You: No Feels Safe at Home: Yes Safety Concerns: Feels Safe At This Time Smoking Status: Current every day smoker Tobacco Type: cigarettes Cigarettes per Day: 1/2 ppd Do You Dip or Chew Tobacco: No Second Hand Exposure: Yes Tobacco Cessation Education Requested by Patient: No Hx Alcohol Use: Yes Alcohol type: wine Alcohol Intake Frequency: holidays/ special occasions only Hx Substance Use: No Beliefs That Will Affect Care: None Preferred Language: Albanian Communication Ability: Effective Marble Worker Required: No Review of Systems All systems reviewed & are unremarkable except as noted in HPI & below Physical Exam Vital Signs Vital Signs - 24 hr 05/15/18 05:53 05/15/18 06:40 05/15/18 07:16 Temperature 36.4 C L Temperature Source Oral Sepsis Recent Fever Within 48 Hours No Sepsis Action Taken by Nursing No Action Required Pulse Rate 79 Pulse Rate [Apical] Pulse Rate [Right Finger] 66 Pulse Rate from SpO2 Sensor Pulse Rhythm Regular Pulse Rhythm [Apical] Pulse Rhythm [Right Finger] Pulse Strength Normal Pulse Strength [Apical] Pulse Strength [Right Finger] Respiratory Rate 18 20 Respiratory Effort / Characteristics Non-Labored Spontaneous Non-Labored Respiratory Depth Normal Normal Respiratory Pattern Blood Pressure 100/69 Blood Pressure [Left Arm] 144/75 H Blood Pressure Mean 79 Blood Pressure Mean [Left Arm] 98 Blood Pressure Position Sitting Blood Pressure Position [Left Arm] Pulse Oximetry 96 95 Oxygen Delivery Method Room Air Room Air Room Air Oxygen Flow Rate 05/15/18 10:03 05/15/18 10:50 05/15/18 10:56 Temperature 37.4 C Temperature Source Oral Sepsis Recent Fever Within 48 Hours Sepsis Action Taken by Nursing Pulse Rate Pulse Rate [Apical] Pulse Rate [Right Finger] 72 68 Pulse Rate from SpO2 Sensor Pulse Rhythm Pulse Rhythm [Apical] Pulse Rhythm [Right Finger] Regular Pulse Strength Pulse Strength [Apical] Pulse Strength [Right Finger] Normal Respiratory Rate 20 20 16 Respiratory Effort / Characteristics Non-Labored Non-Labored Accessory Muscle Use Respiratory Depth Normal Normal Respiratory Pattern Regular Blood Pressure 108/69 Blood Pressure [Left Arm] 109/66 128/74 Blood Pressure Mean Blood Pressure Mean [Left Arm] 80 92 Blood Pressure Position Blood Pressure Position [Left Arm] Sitting Pulse Oximetry 90 94 92 Oxygen Delivery Method Room Air Room Air Room Air Oxygen Flow Rate 05/15/18 13:43 05/15/18 13:50 05/15/18 14:00 Temperature 36.6 C Temperature Source Temporal Artery Scan Sepsis Recent Fever Within 48 Hours Sepsis Action Taken by Nursing Pulse Rate Pulse Rate [Apical] 90 85 95 H Pulse Rate [Right Finger] Pulse Rate from SpO2 Sensor Pulse Rhythm Pulse Rhythm [Apical] Regular Regular Regular Pulse Rhythm [Right Finger] Pulse Strength Pulse Strength [Apical] Pulse Strength [Right Finger] Respiratory Rate 17 21 24 Respiratory Effort / Characteristics Non-Labored Non-Labored Non-Labored Respiratory Depth Normal Normal Normal Respiratory Pattern Regular Regular Regular Blood Pressure Blood Pressure [Left Arm] 71/53 L 99/56 L 91/59 L Blood Pressure Mean Blood Pressure Mean [Left Arm] 59 70 69 Blood Pressure Position Blood Pressure Position [Left Arm] Lying Lying Lying Pulse Oximetry 100 99 99 Oxygen Delivery Method Oxymask Oxymask Oxymask Oxygen Flow Rate 10 10 10 05/15/18 14:10 05/15/18 14:20 05/15/18 14:30 Temperature Temperature Source Sepsis Recent Fever Within 48 Hours Sepsis Action Taken by Nursing Pulse Rate Pulse Rate [Apical] 98 H 104 H 104 H Pulse Rate [Right Finger] Pulse Rate from SpO2 Sensor Pulse Rhythm Pulse Rhythm [Apical] Regular Regular Regular Pulse Rhythm [Right Finger] Pulse Strength Pulse Strength [Apical] Pulse Strength [Right Finger] Respiratory Rate 22 22 21 Respiratory Effort / Characteristics Non-Labored Non-Labored Non-Labored Respiratory Depth Normal Normal Normal Respiratory Pattern Regular Regular Regular Blood Pressure Blood Pressure [Left Arm] 99/59 L 89/59 L 85/58 L Blood Pressure Mean Blood Pressure Mean [Left Arm] 72 69 67 Blood Pressure Position Blood Pressure Position [Left Arm] Lying Lying Lying Pulse Oximetry 99 96 97 Oxygen Delivery Method Oxymask Oxymask Oxymask Oxygen Flow Rate 10 2 2 05/15/18 14:40 05/15/18 14:50 05/15/18 14:55 Temperature Temperature Source Sepsis Recent Fever Within 48 Hours Sepsis Action Taken by Nursing Pulse Rate Pulse Rate [Apical] 112 H 110 H 103 H Pulse Rate [Right Finger] Pulse Rate from SpO2 Sensor Pulse Rhythm Pulse Rhythm [Apical] Regular Regular Regular Pulse Rhythm [Right Finger] Pulse Strength Pulse Strength [Apical] Pulse Strength [Right Finger] Respiratory Rate 24 22 22 Respiratory Effort / Characteristics Non-Labored Non-Labored Non-Labored Respiratory Depth Normal Normal Normal Respiratory Pattern Regular Regular Regular Blood Pressure Blood Pressure [Left Arm] 91/62 L 85/58 L 101/66 Blood Pressure Mean Blood Pressure Mean [Left Arm] 71 67 77 Blood Pressure Position Blood Pressure Position [Left Arm] Lying Lying Lying Pulse Oximetry 97 97 98 Oxygen Delivery Method Oxymask Oxymask Oxymask Oxygen Flow Rate 2 2 2 05/15/18 15:00 05/15/18 15:10 05/15/18 15:20 Temperature Temperature Source Sepsis Recent Fever Within 48 Hours Sepsis Action Taken by Nursing Pulse Rate Pulse Rate [Apical] 105 H 103 H 100 H Pulse Rate [Right Finger] Pulse Rate from SpO2 Sensor Pulse Rhythm Pulse Rhythm [Apical] Regular Regular Regular Pulse Rhythm [Right Finger] Pulse Strength Pulse Strength [Apical] Pulse Strength [Right Finger] Respiratory Rate 22 21 19 Respiratory Effort / Characteristics Non-Labored Non-Labored Non-Labored Respiratory Depth Normal Normal Normal Respiratory Pattern Regular Regular Regular Blood Pressure Blood Pressure [Left Arm] 104/62 97/64 L 106/65 Blood Pressure Mean Blood Pressure Mean [Left Arm] 76 75 78 Blood Pressure Position Blood Pressure Position [Left Arm] Lying Lying Lying Pulse Oximetry 99 98 98 Oxygen Delivery Method Oxymask Oxymask Oxymask Oxygen Flow Rate 2 2 2 05/15/18 15:30 05/15/18 15:40 05/15/18 15:50 Temperature Temperature Source Sepsis Recent Fever Within 48 Hours Sepsis Action Taken by Nursing Pulse Rate Pulse Rate [Apical] 102 H 109 H 108 H Pulse Rate [Right Finger] Pulse Rate from SpO2 Sensor Pulse Rhythm Pulse Rhythm [Apical] Regular Regular Regular Pulse Rhythm [Right Finger] Pulse Strength Pulse Strength [Apical] Pulse Strength [Right Finger] Respiratory Rate 20 22 22 Respiratory Effort / Characteristics Non-Labored Non-Labored Non-Labored Respiratory Depth Normal Normal Normal Respiratory Pattern Regular Regular Regular Blood Pressure Blood Pressure [Left Arm] 101/64 105/70 104/66 Blood Pressure Mean Blood Pressure Mean [Left Arm] 76 81 78 Blood Pressure Position Blood Pressure Position [Left Arm] Lying Lying Lying Pulse Oximetry 97 97 95 Oxygen Delivery Method Oxymask Oxymask Oxymask Oxygen Flow Rate 2 2 2 05/15/18 16:00 05/15/18 16:10 05/15/18 16:20 Temperature Temperature Source Sepsis Recent Fever Within 48 Hours Sepsis Action Taken by Nursing Pulse Rate Pulse Rate [Apical] 112 H 113 H 127 H Pulse Rate [Right Finger] Pulse Rate from SpO2 Sensor Pulse Rhythm Pulse Rhythm [Apical] Regular Regular Regular Pulse Rhythm [Right Finger] Pulse Strength Pulse Strength [Apical] Pulse Strength [Right Finger] Respiratory Rate 22 22 20 Respiratory Effort / Characteristics Non-Labored Non-Labored Non-Labored Respiratory Depth Normal Normal Normal Respiratory Pattern Regular Regular Regular Blood Pressure Blood Pressure [Left Arm] 102/63 108/63 95/58 L Blood Pressure Mean Blood Pressure Mean [Left Arm] 76 78 70 Blood Pressure Position Blood Pressure Position [Left Arm] Lying Lying Lying Pulse Oximetry 95 97 93 Oxygen Delivery Method Oxymask Oxymask Oxymask Oxygen Flow Rate 2 2 2 05/15/18 16:30 05/15/18 16:40 05/15/18 16:50 Temperature 37.4 C Temperature Source Temporal Artery Scan Sepsis Recent Fever Within 48 Hours Sepsis Action Taken by Nursing Pulse Rate Pulse Rate [Apical] 134 H 126 H 128 H Pulse Rate [Right Finger] Pulse Rate from SpO2 Sensor Pulse Rhythm Pulse Rhythm [Apical] Regular Regular Regular Pulse Rhythm [Right Finger] Pulse Strength Pulse Strength [Apical] Pulse Strength [Right Finger] Respiratory Rate 23 23 21 Respiratory Effort / Characteristics Non-Labored Non-Labored Non-Labored Respiratory Depth Normal Normal Normal Respiratory Pattern Regular Regular Regular Blood Pressure Blood Pressure [Left Arm] 86/57 L 96/54 L 96/58 L Blood Pressure Mean Blood Pressure Mean [Left Arm] 66 68 70 Blood Pressure Position Blood Pressure Position [Left Arm] Lying Lying Lying Pulse Oximetry 92 92 94 Oxygen Delivery Method Oxymask Oxymask Oxymask Oxygen Flow Rate 2 4 4 05/15/18 17:00 05/15/18 17:10 05/15/18 17:20 Temperature 37.7 C H Temperature Source Oral Sepsis Recent Fever Within 48 Hours Sepsis Action Taken by Nursing Pulse Rate Pulse Rate [Apical] 123 H 123 H 127 H Pulse Rate [Right Finger] Pulse Rate from SpO2 Sensor Pulse Rhythm Pulse Rhythm [Apical] Regular Regular Regular Pulse Rhythm [Right Finger] Pulse Strength Pulse Strength [Apical] Pulse Strength [Right Finger] Respiratory Rate 21 22 20 Respiratory Effort / Characteristics Non-Labored Non-Labored Non-Labored Respiratory Depth Normal Normal Normal Respiratory Pattern Regular Regular Regular Blood Pressure Blood Pressure [Left Arm] 91/49 L 91/51 L 87/54 L Blood Pressure Mean Blood Pressure Mean [Left Arm] 63 64 65 Blood Pressure Position Blood Pressure Position [Left Arm] Lying Lying Lying Pulse Oximetry 94 93 93 Oxygen Delivery Method Oxymask Oxymask Oxymask Oxygen Flow Rate 4 4 4 05/15/18 17:30 05/15/18 17:40 05/15/18 17:50 Temperature Temperature Source Sepsis Recent Fever Within 48 Hours Sepsis Action Taken by Nursing Pulse Rate Pulse Rate [Apical] 126 H 115 H 110 H Pulse Rate [Right Finger] Pulse Rate from SpO2 Sensor Pulse Rhythm Pulse Rhythm [Apical] Regular Regular Regular Pulse Rhythm [Right Finger] Pulse Strength Pulse Strength [Apical] Pulse Strength [Right Finger] Respiratory Rate 21 17 18 Respiratory Effort / Characteristics Non-Labored Non-Labored Non-Labored Respiratory Depth Normal Normal Normal Respiratory Pattern Regular Regular Regular Blood Pressure Blood Pressure [Left Arm] 84/51 L 84/47 L 87/49 L Blood Pressure Mean Blood Pressure Mean [Left Arm] 62 59 61 Blood Pressure Position Blood Pressure Position [Left Arm] Lying Lying Lying Pulse Oximetry 93 94 95 Oxygen Delivery Method Oxymask Oxymask Oxymask Oxygen Flow Rate 4 4 4 05/15/18 18:00 05/15/18 18:13 05/15/18 18:30 Temperature 37.3 C Temperature Source Sepsis Recent Fever Within 48 Hours Sepsis Action Taken by Nursing Pulse Rate 101 H 100 H Pulse Rate [Apical] 104 H Pulse Rate [Right Finger] Pulse Rate from SpO2 Sensor 101 H 101 H Pulse Rhythm Pulse Rhythm [Apical] Regular Pulse Rhythm [Right Finger] Pulse Strength Pulse Strength [Apical] Pulse Strength [Right Finger] Respiratory Rate 20 18 22 Respiratory Effort / Characteristics Non-Labored Respiratory Depth Normal Respiratory Pattern Regular Blood Pressure 94/65 L Blood Pressure [Left Arm] 122/65 Blood Pressure Mean 74 Blood Pressure Mean [Left Arm] 84 Blood Pressure Position Blood Pressure Position [Left Arm] Lying Pulse Oximetry 96 94 95 Oxygen Delivery Method Oxymask Nasal Cannula Oxygen Flow Rate 4 4 05/15/18 19:03 05/15/18 19:07 05/15/18 19:16 Temperature 37.3 C Temperature Source Oral Sepsis Recent Fever Within 48 Hours Sepsis Action Taken by Nursing Pulse Rate 113 H 120 H Pulse Rate [Apical] 111 H Pulse Rate [Right Finger] Pulse Rate from SpO2 Sensor 112 H 120 H Pulse Rhythm Pulse Rhythm [Apical] Regular Pulse Rhythm [Right Finger] Pulse Strength Pulse Strength [Apical] Normal Pulse Strength [Right Finger] Respiratory Rate 22 16 23 Respiratory Effort / Characteristics Non-Labored Spontaneous Respiratory Depth Normal Respiratory Pattern Regular Blood Pressure 124/75 120/65 Blood Pressure [Left Arm] 124/75 Blood Pressure Mean 91 83 Blood Pressure Mean [Left Arm] 91 Blood Pressure Position Blood Pressure Position [Left Arm] Pulse Oximetry 95 94 93 Oxygen Delivery Method Nasal Cannula Oxygen Flow Rate 4 05/15/18 19:34 05/15/18 19:45 05/15/18 20:00 Temperature Temperature Source Sepsis Recent Fever Within 48 Hours Sepsis Action Taken by Nursing Pulse Rate 133 H 143 H 107 H Pulse Rate [Apical] Pulse Rate [Right Finger] Pulse Rate from SpO2 Sensor 134 H 141 H 107 H Pulse Rhythm Pulse Rhythm [Apical] Pulse Rhythm [Right Finger] Pulse Strength Pulse Strength [Apical] Pulse Strength [Right Finger] Respiratory Rate 21 21 16 Respiratory Effort / Characteristics Respiratory Depth Respiratory Pattern Blood Pressure 98/66 L 81/58 L Blood Pressure [Left Arm] Blood Pressure Mean 76 65 Blood Pressure Mean [Left Arm] Blood Pressure Position Blood Pressure Position [Left Arm] Pulse Oximetry 94 93 94 Oxygen Delivery Method Oxygen Flow Rate 05/15/18 20:01 05/15/18 20:15 05/15/18 20:26 Temperature Temperature Source Sepsis Recent Fever Within 48 Hours Sepsis Action Taken by Nursing Pulse Rate 111 H 103 H 101 H Pulse Rate [Apical] Pulse Rate [Right Finger] Pulse Rate from SpO2 Sensor 109 H 103 H Pulse Rhythm Pulse Rhythm [Apical] Pulse Rhythm [Right Finger] Pulse Strength Pulse Strength [Apical] Pulse Strength [Right Finger] Respiratory Rate 15 17 Respiratory Effort / Characteristics Respiratory Depth Respiratory Pattern Blood Pressure 105/63 103/69 Blood Pressure [Left Arm] Blood Pressure Mean 77 80 Blood Pressure Mean [Left Arm] Blood Pressure Position Blood Pressure Position [Left Arm] Pulse Oximetry 94 93 Oxygen Delivery Method Oxygen Flow Rate 05/15/18 20:30 Temperature Temperature Source Sepsis Recent Fever Within 48 Hours Sepsis Action Taken by Nursing Pulse Rate 103 H Pulse Rate [Apical] Pulse Rate [Right Finger] Pulse Rate from SpO2 Sensor 103 H Pulse Rhythm Pulse Rhythm [Apical] Pulse Rhythm [Right Finger] Pulse Strength Pulse Strength [Apical] Pulse Strength [Right Finger] Respiratory Rate 19 Respiratory Effort / Characteristics Respiratory Depth Respiratory Pattern Blood Pressure 99/61 L Blood Pressure [Left Arm] Blood Pressure Mean 73 Blood Pressure Mean [Left Arm] Blood Pressure Position Blood Pressure Position [Left Arm] Pulse Oximetry 95 Oxygen Delivery Method Oxygen Flow Rate VITALS: Vitals are noted on the nurse's note and reviewed by myself. Vital signs stable. GENERAL: White female who appears in pain, in no acute distress, nondiaphoretic , well-developed well-nourished. SKIN: The skin was without rashes, erythema, edema, or bruising. There is no tenting of the skin. Capillary reflex less than 2 seconds. HEAD: Normocephalic atraumatic. EARS: External auditory canals clear, tympanic membranes pearly goldsmith without erythema or effusion bilaterally. EYES: Pupils equal round and reactive to light and accommodation. Conjunctivae without injection, sclerae without icterus. Extraocular movements intact. NOSE: Patent, turbinates without inflammation or discharge. MOUTH: Mucous membranes moist. Pharynx without erythema or exudate. Uvula midline. Airway patent. Tongue does not deviate. NECK: Supple without nuchal rigidity. No lymphadenopathy. No thyromegaly. Cervical spine is nontender. No JVD. HEART: Regular rate and rhythm without murmurs gallops or rubs. LUNGS: Clear to auscultation bilaterally without wheezes, rales or rhonchi. No retractions or accessory muscle use. ABDOMEN: Positive bowel sounds x 4. Normal tympanic percussion. Soft, tender to palpation lower abdomen, without masses or organomegaly. Lee sign negative. No guarding or rebound tenderness. No CVA tenderness MUSCULOSKELETAL: No muscle atrophy, erythema, or edema noted. NEURO: Patient was alert and oriented to person place and time. Normal sensation to light and sharp touch. No focal neurological deficits. Course Administered Medications Hydromorphone HCl (Dilaudid) 1 mg IV Q3H PRN PRN Reason: Pain Stop: 05/29/18 18:13 Last Admin: 05/15/18 19:17 Dose: 1 mg Lactated Ringer's (Lr) 1,000 mls @ 125 mls/hr IV .Q8H MARK Stop: 06/14/18 13:44 Last Admin: 05/15/18 19:59 Dose: 125 mls/hr Infusion: 05/15/18 19:59 Dose: 125 mls/hr Admin: 05/15/18 15:30 Dose: 125 mls/hr Norepinephrine Bitartrate 8 mg (/ Dextrose) 508 mls @ 29.71 mls/hr IV .Q17H6M MARK; Protocol Stop: 06/14/18 17:44 Last Admin: 05/15/18 17:52 Dose: 0.1 mcg/kg/min, 30 mls/hr Magnesium Sulfate/Dextrose (Magnesium Sulfate / D5w) 1 gm in 100 mls @ 100 mls/ hr IV Q1H MARK Stop: 05/15/18 21:59 Last Admin: 05/15/18 20:42 Dose: 100 mls/hr Infusion: 05/15/18 20:42 Dose: 100 mls/hr Admin: 05/15/18 20:02 Dose: 100 mls/hr Ioversol (Optiray 320 100ml) 93 ml IV ONCE PRN PRN Reason: Interaction Checking Stop: 05/19/18 07:04 Last Admin: 05/15/18 07:08 Dose: 93 ml Ketorolac Tromethamine (Toradol) 30 mg IV Q6H MARK Stop: 05/20/18 19:59 Last Admin: 05/15/18 19:16 Dose: 30 mg Discontinued Medications Acetaminophen (Ofirmev) Confirm Administered Dose 1,000 mg IV .STK-MED ONE Stop: 05/15/18 16:37 Last Admin: 05/15/18 16:38 Dose: 1,000 mg Bupivacaine HCl (Marcaine 0.5% Mpf) Confirm Administered Dose 30 ml .ROUTE .STK- MED ONE Stop: 05/15/18 10:03 Last Admin: 05/15/18 13:12 Dose: 30 ml Bupivacaine Liposome (Exparel) Confirm Administered Dose 266 mg .ROUTE .STK-MED ONE Stop: 05/15/18 12:19 Last Admin: 05/15/18 13:12 Dose: 266 mg Dicyclomine HCl (Bentyl) 20 mg IM NOW ONE Stop: 05/15/18 06:03 Last Admin: 05/15/18 06:44 Dose: 20 mg Diphenhydramine HCl (Benadryl) 25 mg IV NOW STA Stop: 05/15/18 06:03 Last Admin: 05/15/18 06:42 Dose: 25 mg Sodium Chloride (Nss 1000ml) 1,000 mls @ 999 mls/hr IV .Q1H1M MARK Stop: 05/15/18 07:15 Last Infusion: 05/15/18 08:38 Dose: 0 mls/hr Admin: 05/15/18 06:37 Dose: 999 mls/hr Cefazolin Sodium (Ancef 2000mg) 2,000 mg in 15 mls @ 3.75 mls/min IV ONCE MARK; Protocol Stop: 05/15/18 14:00 Last Admin: 05/15/18 11:26 Dose: 3.75 mls/min Acetaminophen (Ofirmev) 1,000 mg in 100 mls @ 400 mls/hr IV Q8H MARK Stop: 06/14/18 13:59 Last Admin: 05/15/18 18:38 Dose: Not Given Albumin Human (Albumin 5%) 250 mls @ 500 mls/hr IV UD MARK Stop: 05/18/18 14:14 Last Infusion: 05/15/18 14:42 Dose: 0 mls/hr Admin: 05/15/18 14:12 Dose: 500 mls/hr Hard Fat/Phenylephrine 20 mg/ (Dextrose) 502 mls @ 46.98 mls/hr IV .[id number] MARK ; Protocol Stop: 05/15/18 18:00 Last Titration: 05/15/18 15:55 Dose: 0.1 mcg/kg/min, 11.7 mls/hr Titration: 05/15/18 15:25 Dose: 0.2 mcg/kg/min, 23.5 mls/hr Titration: 05/15/18 15:16 Dose: 0.3 mcg/kg/min, 35.2 mls/hr Admin: 05/15/18 14:43 Dose: 0.5 mcg/kg/min, 58.7 mls/hr Albumin Human (Albumin 5%) 250 mls @ 500 mls/hr IV UD MARK Stop: 05/18/18 15:14 Last Infusion: 05/15/18 15:27 Dose: 0 mls/hr Admin: 05/15/18 14:53 Dose: 500 mls/hr Albumin Human (Albumin 5%) 250 mls @ 500 mls/hr IV NOW ONE Stop: 05/15/18 18:29 Last Admin: 05/15/18 20:09 Dose: Not Given Ketorolac Tromethamine (Toradol) 10 mg IV NOW STA Stop: 05/15/18 06:03 Last Admin: 05/15/18 06:39 Dose: 10 mg Metoclopramide HCl (Reglan) 10 mg IV NOW STA Stop: 05/15/18 06:03 Last Admin: 05/15/18 06:40 Dose: 10 mg Medical Decision Making Medical Records Attestation: I reviewed the patient's medical records. Home Medications Current Medication List: was personally reviewed by me Laboratory Data Attestation: I reviewed the patient's lab results. Result diagrams: 05/15/18 18:30 05/15/18 18:30 Lab Results 05/15/18 05/15/18 05/15/18 Range/Units 06:20 06:25 06:25 WBC 10.29 (4.8-10.8) K/uL RBC 4.80 (4.2-5.4) M/uL Hgb 15.8 (12.0-16.0) g/dL POC Hgb (12.0-16.0) g/dl Hct 46.0 (37-47) % POC Hct (37-47) % MCV 95.8 (80-100) fL MCH 32.9 (25-34) pg MCHC 34.3 (32-36) g/dL RDW Std Deviation 48.1 H (36.4-46.3) fL RDW Coeff of Tigre 13.8 (11.5-14.5) % Plt Count 150 (130-400) K/uL MPV 10.8 H (7.4-10.4) fL Immature Gran % (Auto) 0.3 % Neut % (Auto) 77.2 % Lymph % (Auto) 13.9 % [place] % (Auto) 8.1 % Eos % (Auto) 0.3 % Baso % (Auto) 0.2 % Immature Gran # (Auto) 0.03 H (0.00-0.02) K/uL Neut # (Auto) 7.95 H (1.4-6.5) K/uL Lymph # (Auto) 1.43 (1.2-3.4) K/uL [place] # (Auto) 0.83 H (0.11-0.59) K/uL Eos # (Auto) 0.03 (0-0.5) K/uL Baso # (Auto) 0.02 (0-0.2) K/uL POC Sodium (135-144) mEq/L Sodium 140 (136-145) mmol/L POC Potassium (3.3-5.0) mEq/L Potassium 3.4 L (3.5-5.1) mmol/L POC Chloride (101-112) mEq/L Chloride 101 (98-107) mmol/L Carbon Dioxide 31 (21-32) mmol/L POC Total CO2 (24-31) mEq/l Anion Gap 8.0 (3-11) POC Anion Gap (16-25) mmol/L POC BUN (7-18) mg/dl BUN 11 (7-18) mg/dl Creatinine 0.86 (0.6-1.2) mg/dl POC Creatinine (0.6-1.3) mg/dl Est Cr Clr Drug Dosing 62.5 ml/min Est GFR ( Amer) 82.7 Est GFR (Non-Af Amer) 71.4 BUN/Creatinine Ratio 13.2 (10-20) Glucose 109 H (70-99) mg/dl POC Glucose (other) (70-99) mg/dl Calcium 9.7 (8.5-10.1) mg/dl POC Ioniz Calcium Geovanna (1.12-1.32) mmol/l Phosphorus (2.5-4.9) mg/dl Magnesium (1.8-2.4) mg/dl Total Bilirubin 0.7 (0.2-1) mg/dl AST 22 (15-37) U/L ALT 36 (12-78) U/L Alkaline Phosphatase 55 (45-117) U/L Total Creatine Kinase (26-192) U/L CK-MB (CK-2) (0.5-3.6) ng/ml CK/CKMB % Calc (0-3.0) Troponin I (0-0.045) ng/ml Total Protein 7.1 (6.4-8.2) gm/dl Albumin 3.5 (3.4-5.0) gm/dl Globulin 3.6 (2.5-4.0) gm/dl Albumin/Globulin Ratio 1.0 (0.9-2) Lipase 82 (73-393) U/L Procalcitonin (0-0.5) ng/ml Urine Color Dark Yellow Urine Appearance Clear (Clear) Urine pH 7.0 (4.5-7.5) Ur Specific [place] 1.021 (1.000-1.030) Urine Protein Negative (Negative) Urine Glucose (UA) Negative (Negative) Urine Ketones 2+ H (Negative) Urine Blood Negative (Negative) Urine Nitrite Negative (Negative) Urine Bilirubin Negative (Negative) Urine Urobilinogen Positive H (Negative) Ur Leukocyte Esterase Negative (Negative) Nasal Screen MRSA (PCR) (Negative) 05/15/18 05/15/18 05/15/18 Range/Units 06:25 06:30 15:05 WBC (4.8-10.8) K/uL RBC (4.2-5.4) M/uL Hgb 16.4 H (12.0-16.0) g/dL POC Hgb 15.3 (12.0-16.0) g/dl Hct 49.8 H (37-47) % POC Hct 45 (37-47) % MCV (80-100) fL MCH (25-34) pg MCHC (32-36) g/dL RDW Std Deviation (36.4-46.3) fL RDW Coeff of Tigre (11.5-14.5) % Plt Count (130-400) K/uL MPV (7.4-10.4) fL Immature Gran % (Auto) % Neut % (Auto) % Lymph % (Auto) % [place] % (Auto) % Eos % (Auto) % Baso % (Auto) % Immature Gran # (Auto) (0.00-0.02) K/uL Neut # (Auto) (1.4-6.5) K/uL Lymph # (Auto) (1.2-3.4) K/uL [place] # (Auto) (0.11-0.59) K/uL Eos # (Auto) (0-0.5) K/uL Baso # (Auto) (0-0.2) K/uL POC Sodium 140 (135-144) mEq/L Sodium (136-145) mmol/L POC Potassium 3.4 (3.3-5.0) mEq/L Potassium (3.5-5.1) mmol/L POC Chloride 97 L (101-112) mEq/L Chloride (98-107) mmol/L Carbon Dioxide (21-32) mmol/L POC Total CO2 31 (24-31) mEq/l Anion Gap (3-11) POC Anion Gap 16.0 (16-25) mmol/L POC BUN 11 (7-18) mg/dl BUN (7-18) mg/dl Creatinine (0.6-1.2) mg/dl POC Creatinine 0.8 (0.6-1.3) mg/dl Est Cr Clr Drug Dosing ml/min Est GFR ( Amer) Est GFR (Non-Af Amer) BUN/Creatinine Ratio (10-20) Glucose (70-99) mg/dl POC Glucose (other) 114 H (70-99) mg/dl Calcium (8.5-10.1) mg/dl POC Ioniz Calcium Geovanna 1.19 (1.12-1.32) mmol/l Phosphorus (2.5-4.9) mg/dl Magnesium (1.8-2.4) mg/dl Total Bilirubin (0.2-1) mg/dl AST (15-37) U/L ALT (12-78) U/L Alkaline Phosphatase (45-117) U/L Total Creatine Kinase (26-192) U/L CK-MB (CK-2) (0.5-3.6) ng/ml CK/CKMB % Calc (0-3.0) Troponin I < 0.015 (0-0.045) ng/ml Total Protein (6.4-8.2) gm/dl Albumin (3.4-5.0) gm/dl Globulin (2.5-4.0) gm/dl Albumin/Globulin Ratio (0.9-2) Lipase (73-393) U/L Procalcitonin (0-0.5) ng/ml Urine Color Urine Appearance (Clear) Urine pH (4.5-7.5) Ur Specific [place] (1.000-1.030) Urine Protein (Negative) Urine Glucose (UA) (Negative) Urine Ketones (Negative) Urine Blood (Negative) Urine Nitrite (Negative) Urine Bilirubin (Negative) Urine Urobilinogen (Negative) Ur Leukocyte Esterase (Negative) Nasal Screen MRSA (PCR) (Negative) 05/15/18 05/15/18 05/15/18 Range/Units 15:07 18:30 18:30 WBC 2.67 L D (4.8-10.8) K/uL RBC 4.26 (4.2-5.4) M/uL Hgb 13.8 (12.0-16.0) g/dL POC Hgb (12.0-16.0) g/dl Hct 40.6 (37-47) % POC Hct (37-47) % MCV 95.3 (80-100) fL MCH 32.4 (25-34) pg MCHC 34.0 (32-36) g/dL RDW Std Deviation 47.9 H (36.4-46.3) fL RDW Coeff of Tigre 14.0 (11.5-14.5) % Plt Count 105 L (130-400) K/uL MPV 11.5 H (7.4-10.4) fL Immature Gran % (Auto) 0.4 % Neut % (Auto) 82.4 % Lymph % (Auto) 7.1 % [place] % (Auto) 10.1 % Eos % (Auto) 0.0 % Baso % (Auto) 0.0 % Immature Gran # (Auto) 0.01 (0.00-0.02) K/uL Neut # (Auto) 2.20 (1.4-6.5) K/uL Lymph # (Auto) 0.19 L (1.2-3.4) K/uL [place] # (Auto) 0.27 (0.11-0.59) K/uL Eos # (Auto) 0.00 (0-0.5) K/uL Baso # (Auto) 0.00 (0-0.2) K/uL POC Sodium (135-144) mEq/L Sodium 141 (136-145) mmol/L POC Potassium (3.3-5.0) mEq/L Potassium 3.1 L (3.5-5.1) mmol/L POC Chloride (101-112) mEq/L Chloride 107 (98-107) mmol/L Carbon Dioxide 28 (21-32) mmol/L POC Total CO2 (24-31) mEq/l Anion Gap 6.0 (3-11) POC Anion Gap (16-25) mmol/L POC BUN (7-18) mg/dl BUN 11 (7-18) mg/dl Creatinine 0.89 (0.6-1.2) mg/dl POC Creatinine (0.6-1.3) mg/dl Est Cr Clr Drug Dosing 60.4 ml/min Est GFR ( Amer) 79.4 Est GFR (Non-Af Amer) 68.5 BUN/Creatinine Ratio 12.8 (10-20) Glucose 129 H (70-99) mg/dl POC Glucose (other) (70-99) mg/dl Calcium 8.3 L (8.5-10.1) mg/dl POC Ioniz Calcium Geovanna (1.12-1.32) mmol/l Phosphorus 2.5 (2.5-4.9) mg/dl Magnesium 0.9 L* (1.8-2.4) mg/dl Total Bilirubin (0.2-1) mg/dl AST (15-37) U/L ALT (12-78) U/L Alkaline Phosphatase (45-117) U/L Total Creatine Kinase (26-192) U/L CK-MB (CK-2) (0.5-3.6) ng/ml CK/CKMB % Calc (0-3.0) Troponin I < 0.015 (0-0.045) ng/ml Total Protein (6.4-8.2) gm/dl Albumin (3.4-5.0) gm/dl Globulin (2.5-4.0) gm/dl Albumin/Globulin Ratio (0.9-2) Lipase (73-393) U/L Procalcitonin (0-0.5) ng/ml Urine Color Urine Appearance (Clear) Urine pH (4.5-7.5) Ur Specific [place] (1.000-1.030) Urine Protein (Negative) Urine Glucose (UA) (Negative) Urine Ketones (Negative) Urine Blood (Negative) Urine Nitrite (Negative) Urine Bilirubin (Negative) Urine Urobilinogen (Negative) Ur Leukocyte Esterase (Negative) Nasal Screen MRSA (PCR) (Negative) 05/15/18 05/15/18 05/15/18 Range/Units 18:30 18:30 18:30 WBC (4.8-10.8) K/uL RBC (4.2-5.4) M/uL Hgb (12.0-16.0) g/dL POC Hgb (12.0-16.0) g/dl Hct (37-47) % POC Hct (37-47) % MCV (80-100) fL MCH (25-34) pg MCHC (32-36) g/dL RDW Std Deviation (36.4-46.3) fL RDW Coeff of Tigre (11.5-14.5) % Plt Count (130-400) K/uL MPV (7.4-10.4) fL Immature Gran % (Auto) % Neut % (Auto) % Lymph % (Auto) % [place] % (Auto) % Eos % (Auto) % Baso % (Auto) % Immature Gran # (Auto) (0.00-0.02) K/uL Neut # (Auto) (1.4-6.5) K/uL Lymph # (Auto) (1.2-3.4) K/uL [place] # (Auto) (0.11-0.59) K/uL Eos # (Auto) (0-0.5) K/uL Baso # (Auto) (0-0.2) K/uL POC Sodium (135-144) mEq/L Sodium (136-145) mmol/L POC Potassium (3.3-5.0) mEq/L Potassium (3.5-5.1) mmol/L POC Chloride (101-112) mEq/L Chloride (98-107) mmol/L Carbon Dioxide (21-32) mmol/L POC Total CO2 (24-31) mEq/l Anion Gap (3-11) POC Anion Gap (16-25) mmol/L POC BUN (7-18) mg/dl BUN (7-18) mg/dl Creatinine (0.6-1.2) mg/dl POC Creatinine (0.6-1.3) mg/dl Est Cr Clr Drug Dosing ml/min Est GFR ( Amer) Est GFR (Non-Af Amer) BUN/Creatinine Ratio (10-20) Glucose (70-99) mg/dl POC Glucose (other) (70-99) mg/dl Calcium (8.5-10.1) mg/dl POC Ioniz Calcium [place]ovanna (1.12-1.32) mmol/l Phosphorus (2.5-4.9) mg/dl Magnesium (1.8-2.4) mg/dl Total Bilirubin (0.2-1) mg/dl AST (15-37) U/L ALT (12-78) U/L Alkaline Phosphatase (45-117) U/L Total Creatine Kinase 84 (26-192) U/L CK-MB (CK-2) 1.0 (0.5-3.6) ng/ml CK/CKMB % Calc 1.2 (0-3.0) Troponin I 0.019 (0-0.045) ng/ml Total Protein (6.4-8.2) gm/dl Albumin (3.4-5.0) gm/dl Globulin (2.5-4.0) gm/dl Albumin/Globulin Ratio (0.9-2) Lipase (73-393) U/L Procalcitonin 23.08 H (0-0.5) ng/ml Urine Color Urine Appearance (Clear) Urine pH (4.5-7.5) Ur Specific [place] (1.000-1.030) Urine Protein (Negative) Urine Glucose (UA) (Negative) Urine Ketones (Negative) Urine Blood (Negative) Urine Nitrite (Negative) Urine Bilirubin (Negative) Urine Urobilinogen (Negative) Ur Leukocyte Esterase (Negative) Nasal Screen MRSA (PCR) Negative (Negative) MDM Narrative Prior records/ancillary studies reviewed. Triage Nursing notes reviewed. Additional history obtained from family. The patient's history was concerning for abdominal pain with vomiting. Differential diagnosis: Etiologies such as appendicitis, diverticulitis, PUD, biliary pathology, UTI, pancreatitis, obstruction, mesenteric ischemia, aortic pathology, infections, inflammatory bowel disease, renal colic, as well as others were entertained. Physical examination findings: As above. ER treatment provided: IV fluids, Reglan IV, Benadryl, Bentyl On reassessment the patient felt better. Diagnostics interpreted by me: ECG: Normal sinus, normal intervals, T wave inversion in aVL, rate of 57, EKG compared to prior EKG. Impression sinus bradycardia with T wave inversion in aVL which is old from prior chart review interpreted by myself. I think arrhythmia is unlikely. EKG shows normal sinus rhythm with no interval abnormalities such as QT prolongation or WPW. There are no findings to suggest Brugada syndrome. Cardiac monitoring in the emergency department reveals no tachycardic or bradycardic dysrhythmia. Hypertrophic cardiomyopathy was considered but there are no clear historical elements pointing toward this. EKG is not suggestive. The QRS voltage is not extremely large and there are no suggestive Q waves. The labs revealed no leukocytosis. Stable H&H. Imaging studies: Pending Exam and history seem consistent with abdominal pain and vomiting pending CT. Case signed out to Nidia Yadav, nurse practitioner, pending CT and labs and reevaluation in stable condition. The chart was completed utilizing [employer] Speech voice recognition software. Grammatical errors, random word insertions, pronoun errors, and incomplete sentences are an occassional consequence of this system due to software limitations, ambient noise, and hardware issues. Any formal questions or concerns about the content, text, or information contained within the body of this dictation should be directly addressed to the physician assistant customer service manager for clarification. Impression & Plan Vomiting, Abdominal pain, Small bowel obstruction, Complicated unilateral incarcerated femoral hernia Discharge Plan Visit Data *Final* Discharge Date/Time: 05/15/18 10:50 Chief Complaint: Abdominal Pain Stated Complaint: ADOMINAL PAIN ED Provider: Candida Daniels ED Midlevel Provider: Nidia Yadav Discharge Problem: Vomiting, Abdominal pain, Small bowel obstruction, Complicated unilateral incarcerated femoral hernia Patient Disposition: Still a Patient Condition: Good Discharge Instructions Interventions: ED Discharge Assessment Last Done: 05/15/18 10:50
[2018-05-15] MEDS ORDERED: SODIUM CHLORIDE 0.9% 1000ML 1,000 ML IV SCH (06:15)
[2018-05-15 06:42] LABS: Basophils # (auto) 0.02 K/uL (0-0.2); Basophils % (auto) 0.2 %; Eosinophils # (auto) 0.03 K/uL (0-0.5); Eosinophils % (auto) 0.3 %; Hemoglobin 15.8 g/dL (12.0-16.0); Immature Granulocytes # (auto) 0.03 K/uL (0.00-0.02); Immature Granulocytes % (auto) 0.3 %; Lymphocytes # (auto) 1.43 K/uL (1.2-3.4); Lymphocytes % (auto) 13.9 %; Mean Corpuscular Hgb Conc 34.3 g/dL (32-36); Mean Corpuscular Volume 95.8 fL (80-100); Mean Platelet Volume 10.8 fL (7.4-10.4); Monocytes # (auto) 0.83 K/uL (0.11-0.59); Monocytes % (auto) 8.1 %; Neutrophils # (auto) 7.95 K/uL (1.4-6.5); Neutrophils % (auto) 77.2 %; Platelet Count 150 K/uL (130-400); RDW Coefficient of Variation 13.8 % (11.5-14.5); RDW Standard Deviation 48.1 fL (36.4-46.3); White Blood Count 10.29 K/uL (4.8-10.8)
[2018-05-15 06:44] LABS: iSTAT Creatinine 0.8 mg/dl (0.6-1.3); iSTAT Hemoglobin 15.3 g/dl (12.0-16.0); iSTAT Ionized Calcium 1.19 mmol/l (1.12-1.32); iSTAT Potassium 3.4 mEq/L (3.3-5.0)
[2018-05-15 06:59] LABS: Appearance Urine Clear (Clear); Blood Urine Negative (Negative); Color Urine Dark Yellow; Glucose Urine UA Negative (Negative); Ketones Urine 2+ (Negative); Leukocyte Esterase Urine Negative (Negative); Nitrite Urine Negative (Negative); Protein Urine Negative (Negative); Specific Gravity Urine 1.021 (1.000-1.030); Urobilinogen Urine Positive (Negative)
[2018-05-15 07:02] LABS: Albumin Level 3.5 gm/dl (3.4-5.0); BUN Creatinine Ratio 13.2 (10-20); Calcium 9.7 mg/dl (8.5-10.1); Creatinine Clr Calc Pharmacy 62.5 ml/min; Est GFR (African American) 82.7; Est GFR (Non-African American) 71.4; Potassium 3.4 mmol/L (3.5-5.1)
[2018-05-15 07:04] LABS: Bilirubin,Total 0.7 mg/dl (0.2-1); Globulin 3.6 gm/dl (2.5-4.0); Total Protein 7.1 gm/dl (6.4-8.2)
[2018-05-15] MEDS ORDERED: IOVERSOL 100ml IV PRN (07:05)
--- NOTE | 2018-05-15 07:05 | Emergency Department Note ---
ED Provider Note I received sign out from Chayo Shore PA-C at change of shift. Pt presented with abdominal pain and vomiting. Labs and CT are pending. INTERPRETATION OF LABS: No leukocytosis, no anemia, normal platelets, mild hypokalemia, no other significant electrolyte abnormalities, normal renal function, normal liver enzymes and lipase. Troponin negative. UA shows 2+ ketones and urobilinogen, otherwise negative for infection or blood. IMAGING: CT abd pelvis IV con only CLINICAL HISTORY: 63 years-old Female presenting with lower abd pain. TECHNIQUE: Multidetector CT of the abdomen and pelvis was performed after the administration of intravenous contrast. IV contrast: 93 mL of Optiray 320. One or more dose lowering techniques were used consistent with the principles of ALARA (as low as reasonably achievable), including automatic exposure control, mA or kV adjustment to individual patient size, and/or use of iterative reconstruction. COMPARISON: None. CT DOSE (mGy.cm): The estimated cumulative dose is 530.49 mGy.cm. FINDINGS: Soaping Machine Back Tender topogram: Cholecystectomy clips. Lung bases: Normal heart size. No pericardial or pleural effusion. Bandlike and groundglass opacities in the lung bases likely atelectasis. Liver: Normal morphology. Subcentimeter irregular hypodense lesion in the posterior right hepatic lobe, indeterminate though possibly hemangioma (series 3 image 84). Patent hepatic vasculature. Biliary: Mild biliary ductal prominence likely a reservoir effect in the post cholecystectomy state. Gallbladder surgically absent. Pancreas: Moderate parenchymal atrophy. Spleen: Normal. Adrenal glands: Normal. Kidneys and ureters: Normal renal parenchyma. Nonobstructing punctate right renal calculus. Extrarenal pelvis on the right. No hydronephrosis. Ureters nondistended. Bladder: Incompletely evaluated secondary to underdistention. Pelvic organs: Globular appearance of the uterus may imply underlying fibroids. Alternatively, the lobular appearance along the left fundus may be ovarian in etiology (series 3 image 307. Bowel: The colon is decompressed. The cecum is located in the right upper quadrant. The appendix is not visualized. Significant distention of proximal small bowel is a diameter of over 3 cm. Dilated small bowel is primarily fluid containing. There is a smooth transition to slightly less dilated small bowel in the jejunum. Interloop fluid is evident within the mesenteric leaves. There is a focal transition point at the right femoral hernia. There is small amount of fluid within the hernia sac as well as the small bowel loop. Small bowel distal to to this site is completely decompressed. Peritoneal cavity: Trace free fluid within the leaves of the mesentery. No free intraperitoneal gas. Free fluid in the hernia sac as mentioned. Lymph nodes: No enlarged lymph nodes in the abdomen or pelvis. Vasculature: Atherosclerosis of the normal caliber abdominal aorta. IVC patent. There is mild compression of the traversing right common femoral vein along the right femoral hernia. Abdominal wall: No additional abdominal wall hernia identified. Musculoskeletal: Degenerative changes of the spine. IMPRESSION: 1. Complete small bowel obstruction with a transition point at the right femoral hernia. Complete decompression of distal small bowel and colon. Surgical consultation and decompression advised. 2. Indeterminate subcentimeter hypodense lesion in the right hepatic lobe, which is favored to represent a hemangioma. If there is a history of malignancy or hepatocellular risk factors, further evaluation with dedicated liver MRI would be recommended. I evaluated the patient, she appears comfortable, and reports that her pain and nausea are well controlled at this time. Patient denies any history of bowel obstruction in the past. She does note history of liver hemangioma. The patient was updated on all results and plan for admission for surgery, she verbalized understanding and was agreeable to this plan. I spoke with Geoffrey Matta PA-C with general surgery, who agrees to evaluate the patient for surgery. He did not recommend NG tube placement at this time. Patient was stable at time of admission/OR. This chart was completed utilizing [employer] Speech voice recognition software. Grammatical errors, random word insertions, pronoun errors, and incomplete sentences are an occasional consequence of this system due to software limitations, ambient noise, and hardware issues. Any formal questions or concerns about the content, text, or information contained within the body of this dictation should be directly addressed to the nurse practitioner for clarification. Impression & Plan Vomiting, Abdominal pain, Small bowel obstruction, Complicated unilateral incarcerated femoral hernia Past Med/Surg History Medical History Epidural fibrosis (Chronic) left S1 nerve Tobacco use (Chronic) Obesity (Chronic) Osteoarthritis (Chronic) GERD (gastroesophageal reflux disease) (Chronic) Hyperlipidemia (Chronic) Hypertension (Chronic) Lumbar postlaminectomy syndrome (Chronic) Left lumbar radiculitis (Chronic) Myofascial pain (Chronic) Cervicalgia (Chronic) Cervical facet syndrome (Chronic) Cervical spinal stenosis (Chronic) C5-6 History of VA (myocardial infarction) (Chronic) CAD (coronary artery disease) (Chronic) Cervical radiculitis (Resolved) Surgical History H/O heart artery stent (Resolved) History of PTCA (Resolved) History of bilateral tubal ligation (Resolved) History of carpal tunnel release (Resolved) History of cholecystectomy (Resolved) History of lumbar fusion (Resolved) Posterior decompression and instrumented fusion of L4-S1 03/19/2014 Dr. Montesinos History of mandibular surgery (Resolved) S/P lumbar laminectomy (Resolved 03/19/14) S/P total knee arthroplasty (Resolved) Right Social History Feels Safe at Home: Yes Smoking Status: Current every day smoker Cigarettes per Day: 1-01/24 PPd Preferred Language: Kyrgyz Results & Data Vital Signs Vital Signs - 24 hr 05/15/18 05:53 05/15/18 06:40 05/15/18 07:16 Temperature 36.4 C L Temperature Source Oral Sepsis Recent Fever Within 48 Hours No Sepsis Action Taken by Nursing No Action Required Pulse Rate 79 Pulse Rate [Right Finger] 66 Pulse Rhythm Regular Pulse Rhythm [Right Finger] Pulse Strength Normal Pulse Strength [Right Finger] Respiratory Rate 18 20 Respiratory Effort / Characteristics Non-Labored Spontaneous Non-Labored Respiratory Depth Normal Normal Respiratory Pattern Blood Pressure 100/69 Blood Pressure [Left Arm] 144/75 H Blood Pressure Mean 79 Blood Pressure Mean [Left Arm] 98 Blood Pressure Position Sitting Blood Pressure Position [Left Arm] Pulse Oximetry 96 95 Oxygen Delivery Method Room Air Room Air Room Air 05/15/18 10:03 05/15/18 10:50 05/15/18 10:56 Temperature 37.4 C Temperature Source Oral Sepsis Recent Fever Within 48 Hours Sepsis Action Taken by Nursing Pulse Rate Pulse Rate [Right Finger] 72 68 Pulse Rhythm Pulse Rhythm [Right Finger] Regular Pulse Strength Pulse Strength [Right Finger] Normal Respiratory Rate 20 20 16 Respiratory Effort / Characteristics Non-Labored Non-Labored Accessory Muscle Use Respiratory Depth Normal Normal Respiratory Pattern Regular Blood Pressure 108/69 Blood Pressure [Left Arm] 109/66 128/74 Blood Pressure Mean Blood Pressure Mean [Left Arm] 80 92 Blood Pressure Position Blood Pressure Position [Left Arm] Sitting Pulse Oximetry 90 94 92 Oxygen Delivery Method Room Air Room Air Room Air Laboratory Data Result diagrams: 05/15/18 06:25 05/15/18 06:25 Lab Results 05/15/18 05/15/18 05/15/18 Range/Units 06:20 06:25 06:25 WBC 10.29 (4.8-10.8) K/uL RBC 4.80 (4.2-5.4) M/uL Hgb 15.8 (12.0-16.0) g/dL POC Hgb (12.0-16.0) g/dl Hct 46.0 (37-47) % POC Hct (37-47) % MCV 95.8 (80-100) fL MCH 32.9 (25-34) pg MCHC 34.3 (32-36) g/dL RDW Std Deviation 48.1 H (36.4-46.3) fL RDW Coeff of Tigre 13.8 (11.5-14.5) % Plt Count 150 (130-400) K/uL MPV 10.8 H (7.4-10.4) fL Immature Gran % (Auto) 0.3 % Neut % (Auto) 77.2 % Lymph % (Auto) 13.9 % [place] % (Auto) 8.1 % Eos % (Auto) 0.3 % Baso % (Auto) 0.2 % Immature Gran # (Auto) 0.03 H (0.00-0.02) K/uL Neut # (Auto) 7.95 H (1.4-6.5) K/uL Lymph # (Auto) 1.43 (1.2-3.4) K/uL [place] # (Auto) 0.83 H (0.11-0.59) K/uL Eos # (Auto) 0.03 (0-0.5) K/uL Baso # (Auto) 0.02 (0-0.2) K/uL POC Sodium (135-144) mEq/L Sodium 140 (136-145) mmol/L POC Potassium (3.3-5.0) mEq/L Potassium 3.4 L (3.5-5.1) mmol/L POC Chloride (101-112) mEq/L Chloride 101 (98-107) mmol/L Carbon Dioxide 31 (21-32) mmol/L POC Total CO2 (24-31) mEq/l Anion Gap 8.0 (3-11) POC Anion Gap (16-25) mmol/L POC BUN (7-18) mg/dl BUN 11 (7-18) mg/dl Creatinine 0.86 (0.6-1.2) mg/dl POC Creatinine (0.6-1.3) mg/dl Est Cr Clr Drug Dosing 62.5 ml/min Est GFR ( Amer) 82.7 Est GFR (Non-Af Amer) 71.4 BUN/Creatinine Ratio 13.2 (10-20) Glucose 109 H (70-99) mg/dl POC Glucose (other) (70-99) mg/dl Calcium 9.7 (8.5-10.1) mg/dl POC Ioniz Calcium [place] (1.12-1.32) mmol/l Total Bilirubin 0.7 (0.2-1) mg/dl AST 22 (15-37) U/L ALT 36 (12-78) U/L Alkaline Phosphatase 55 (45-117) U/L Troponin I (0-0.045) ng/ml Total Protein 7.1 (6.4-8.2) gm/dl Albumin 3.5 (3.4-5.0) gm/dl Globulin 3.6 (2.5-4.0) gm/dl Albumin/Globulin Ratio 1.0 (0.9-2) Lipase 82 (73-393) U/L Urine Color Dark Yellow Urine Appearance Clear (Clear) Urine pH 7.0 (4.5-7.5) Ur Specific [place] 1.021 (1.000-1.030) Urine Protein Negative (Negative) Urine Glucose (UA) Negative (Negative) Urine Ketones 2+ H (Negative) Urine Blood Negative (Negative) Urine Nitrite Negative (Negative) Urine Bilirubin Negative (Negative) Urine Urobilinogen Positive H (Negative) Ur Leukocyte Esterase Negative (Negative) 05/15/18 05/15/18 Range/Units 06:25 06:30 WBC (4.8-10.8) K/uL RBC (4.2-5.4) M/uL Hgb (12.0-16.0) g/dL POC Hgb 15.3 (12.0-16.0) g/dl Hct (37-47) % POC Hct 45 (37-47) % MCV (80-100) fL MCH (25-34) pg MCHC (32-36) g/dL RDW Std Deviation (36.4-46.3) fL RDW Coeff of Tigre (11.5-14.5) % Plt Count (130-400) K/uL MPV (7.4-10.4) fL Immature Gran % (Auto) % Neut % (Auto) % Lymph % (Auto) % [place] % (Auto) % Eos % (Auto) % Baso % (Auto) % Immature Gran # (Auto) (0.00-0.02) K/uL Neut # (Auto) (1.4-6.5) K/uL Lymph # (Auto) (1.2-3.4) K/uL [place] # (Auto) (0.11-0.59) K/uL Eos # (Auto) (0-0.5) K/uL Baso # (Auto) (0-0.2) K/uL POC Sodium 140 (135-144) mEq/L Sodium (136-145) mmol/L POC Potassium 3.4 (3.3-5.0) mEq/L Potassium (3.5-5.1) mmol/L POC Chloride 97 L (101-112) mEq/L Chloride (98-107) mmol/L Carbon Dioxide (21-32) mmol/L POC Total CO2 31 (24-31) mEq/l Anion Gap (3-11) POC Anion Gap 16.0 (16-25) mmol/L POC BUN 11 (7-18) mg/dl BUN (7-18) mg/dl Creatinine (0.6-1.2) mg/dl POC Creatinine 0.8 (0.6-1.3) mg/dl Est Cr Clr Drug Dosing ml/min Est GFR ( Amer) Est GFR (Non-Af Amer) BUN/Creatinine Ratio (10-20) Glucose (70-99) mg/dl POC Glucose (other) 114 H (70-99) mg/dl Calcium (8.5-10.1) mg/dl POC Ioniz Calcium [place] 1.19 (1.12-1.32) mmol/l Total Bilirubin (0.2-1) mg/dl AST (15-37) U/L ALT (12-78) U/L Alkaline Phosphatase (45-117) U/L Troponin I < 0.015 (0-0.045) ng/ml Total Protein (6.4-8.2) gm/dl Albumin (3.4-5.0) gm/dl Globulin (2.5-4.0) gm/dl Albumin/Globulin Ratio (0.9-2) Lipase (73-393) U/L Urine Color Urine Appearance (Clear) Urine pH (4.5-7.5) Ur Specific [place] (1.000-1.030) Urine Protein (Negative) Urine Glucose (UA) (Negative) Urine Ketones (Negative) Urine Blood (Negative) Urine Nitrite (Negative) Urine Bilirubin (Negative) Urine Urobilinogen (Negative) Ur Leukocyte Esterase (Negative) Administered Medications Cefazolin Sodium (Ancef 2000mg) 2,000 mg in 15 mls @ 3.75 mls/min IV ONCE MARK; Protocol Stop: 05/16/18 11:59 Last Admin: 05/15/18 11:26 Dose: 3.75 mls/min Ioversol (Optiray 320 100ml) 93 ml IV ONCE PRN PRN Reason: Interaction Checking Stop: 05/19/18 07:04 Last Admin: 05/15/18 07:08 Dose: 93 ml Discontinued Medications Bupivacaine HCl (Marcaine 0.5% Mpf) Confirm Administered Dose 30 ml .ROUTE .STK- MED ONE Stop: 05/15/18 10:03 Last Admin: 05/15/18 13:12 Dose: 30 ml Bupivacaine Liposome (Exparel) Confirm Administered Dose 266 mg .ROUTE .STK-MED ONE Stop: 05/15/18 12:19 Last Admin: 05/15/18 13:12 Dose: 266 mg Dicyclomine HCl (Bentyl) 20 mg IM NOW ONE Stop: 05/15/18 06:03 Last Admin: 05/15/18 06:44 Dose: 20 mg Diphenhydramine HCl (Benadryl) 25 mg IV NOW STA Stop: 05/15/18 06:03 Last Admin: 05/15/18 06:42 Dose: 25 mg Sodium Chloride (Nss 1000ml) 1,000 mls @ 999 mls/hr IV .Q1H1M MARK Stop: 05/15/18 07:15 Last Infusion: 05/15/18 08:38 Dose: 0 mls/hr Admin: 05/15/18 06:37 Dose: 999 mls/hr Ketorolac Tromethamine (Toradol) 10 mg IV NOW STA Stop: 05/15/18 06:03 Last Admin: 05/15/18 06:39 Dose: 10 mg Metoclopramide HCl (Reglan) 10 mg IV NOW STA Stop: 05/15/18 06:03 Last Admin: 05/15/18 06:40 Dose: 10 mg Discharge Plan Visit Data *Final* Discharge Date/Time: 05/15/18 10:50 Chief Complaint: Abdominal Pain Stated Complaint: ADOMINAL PAIN ED Provider: Candida Daniels ED Midlevel Provider: Nidia Yadav Discharge Problem: Vomiting, Abdominal pain, Small bowel obstruction, Complicated unilateral incarcerated femoral hernia Patient Disposition: Still a Patient Condition: Good Discharge Instructions Interventions: ED Discharge Assessment Last Done: 05/15/18 10:50
[2018-05-15 07:11] LABS: Bilirubin Urine Negative (Negative); Ictotest Urine Negative (Negative)
--- NOTE | 2018-05-15 07:30 | CT Scan Report ---
CT abd pelvis IV con only CLINICAL HISTORY: 63 years-old Female presenting with lower abd pain. TECHNIQUE: Multidetector CT of the abdomen and pelvis was performed after the administration of intra venous contrast. IV contrast: 93 mL of Optiray 320. One or more dose lowering techniques were used co nsistent with the principles of ALARA (as low as reasonably achievable), including automatic exposure control, mA or kV adjustment to individual patient size, and/or use of iterative reconstruction. COMPARISON: None. CT DOSE (mGy.cm): The estimated cumulative dose is 530.49 mGy.cm. FINDINGS: Chemical Tester topogram: Cholecystectomy clips. Lung bases: Normal heart size. No pericardial or pleural effusion. Bandlike and groundglass opacities in the lung bases likely atelectasis. Liver: Normal morphology. Subcentimeter irregular hypodense lesion in the posterior right hepatic lob e, indeterminate though possibly hemangioma (series 3 image 84). Patent hepatic vasculature. Biliary: Mild biliary ductal prominence likely a reservoir effect in the post cholecystectomy state. Gallbladder surgically absent. Pancreas: Moderate parenchymal atrophy. Spleen: Normal. Adrenal glands: Normal. Kidneys and ureters: Normal renal parenchyma. Nonobstructing punctate right renal calculus. Extrarena l pelvis on the right. No hydronephrosis. Ureters nondistended. Bladder: Incompletely evaluated secondary to underdistention. Pelvic organs: Globular appearance of the uterus may imply underlying fibroids. Alternatively, the lo bular appearance along the left fundus may be ovarian in etiology (series 3 image 307. Bowel: The colon is decompressed. The cecum is located in the right upper quadrant. The appendix is n ot visualized. Significant distention of proximal small bowel is a diameter of over 3 cm. Dilated sma ll bowel is primarily fluid containing. There is a smooth transition to slightly less dilated small b owel in the jejunum. Interloop fluid is evident within the mesenteric leaves. There is a focal transi tion point at the right femoral hernia. There is small amount of fluid within the hernia sac as well as the small bowel loop. Small bowel distal to to this site is completely decompressed. Peritoneal cavity: Trace free fluid within the leaves of the mesentery. No free intraperitoneal gas. Free fluid in the hernia sac as mentioned. Lymph nodes: No enlarged lymph nodes in the abdomen or pelvis. Vasculature: Atherosclerosis of the normal caliber abdominal aorta. IVC patent. There is mild luciana mati of the traversing right common femoral vein along the right femoral hernia. Abdominal wall: No additional abdominal wall hernia identified. Musculoskeletal: Degenerative changes of the spine. IMPRESSION: 1. Complete small bowel obstruction with a transition point at the right femoral hernia. Complete de compression of distal small bowel and colon. Surgical consultation and decompression advised. 2. Indeterminate subcentimeter hypodense lesion in the right hepatic lobe, which is favored to repre sent a hemangioma. If there is a history of malignancy or hepatocellular risk factors, further evalua tion with dedicated liver MRI would be recommended. The report will be called/faxed according to standard departmental protocol. Electronically signed by: Sina Oliver M.D. 05/15/2018 7:28 AM
[2018-05-15] MEDS ORDERED: PROPOFOL IV EMULSION 10 MG/ML 20 ML VIAL IV ONE (08:58)
[2018-05-15] MEDS ORDERED: fentaNYL citrate 100 MCG/2 ML VIAL ONE ×3 (08:58→13:07)
[2018-05-15] MEDS ORDERED: MIDAZOLAM HCL 1 MG/ML 2ML VIAL ONE (08:58)
[2018-05-15] MEDS ORDERED: ONDANSETRON INJ 2 MG/ML 2 ML VIAL ONE (08:58)
[2018-05-15] MEDS ORDERED: NEOSTIGMINE METHYLSULFATE 5 MG/5 ML SYR ONE (08:58)
[2018-05-15] MEDS ORDERED: LIDOCAINE HCL 2% 2 ML VIAL/AMP(20MG/ML) INFIL ONE (08:58)
[2018-05-15] MEDS ORDERED: GLYCOPYRROLATE 0.2 MG/ML VIAL ONE (08:58)
[2018-05-15] MEDS ORDERED: DEXAMETHASONE SOD INJ 4 MG/ML VIAL ONE (08:58)
--- NOTE | 2018-05-15 09:10 | History & Physical Report ---
Date of Service May 15, 2018 Assessment & Plan (1) Incarcerated femoral hernia: 63-year-old female with incarcerated femoral hernia resulting in a small bowel obstruction, no evidence of ischemia at this time. Plan for laparoscopic femoral hernia repair, possible open The risks of the procedure were discussed to include but are not limited to bleeding, infection, recurrence, need for future or more extensive surgery, damage to other structures, possible bowel resection, and the risks of anesthesia Likely overnight stay for observation, hopeful for discharge tomorrow Diagnosis, details the procedure and recovery, and plan of care discussed the patient, all questions were answered, the patient expressed understanding agrees with plan of care as stated. Present on Admission?: Yes (2) Small bowel obstruction: (3) Tobacco use: (4) Obesity: (5) CAD (coronary artery disease): History of Present Illness Primary Care Provider: Gerardo Lemus MD 63-year-old female presented to the emergency department with abdominal pain and nausea vomiting. She recently had a gastrointestinal illness starting early this week. She then developed abdominal bloating and cramping starting sometime yesterday. She has not had a bowel movement since Saturday or Saturday, and is not passing flatus for the past day or 2. She is never had symptoms like this before. She denies any pain or bulge in her groin. No prior hernia repairs, she did have a laparoscopic cholecystectomy in the past. She does have a history of heart attack and is currently active smoker, however she has never had any stents. She is on a baby aspirin, and sees cardiology on a regular basis, last visit in October. She does not take nitro or have regular chest pain. Allergies Allergy/AdvReac Type Severity Reaction Status Date / Time tapentadol [From Nucynta] AdvReac Unknown Confusion Verified 05/15/18 06:44 Home Medications Home Medications Medication Instructions Recorded Confirmed Type aspirin 81 mg tablet,delayed 81 mg PO DAILY 01/13/18 05/15/18 History release atorvastatin 80 mg tablet 80 mg PO HS tab 01/13/18 05/15/18 History lisinopril 5 mg tablet 5 mg PO DAILY 01/13/18 05/15/18 History niacin 500 mg tablet 500 mg PO BID tab 01/13/18 05/15/18 History sucralfate 1 gram tablet 2 gm PO BID tab 01/13/18 05/15/18 History tramadol ER 200 mg tablet,extended 200 mg PO DAILY PRN 01/13/18 05/15/18 History release 24 hr metoprolol tartrate 25 mg PO BID 05/15/18 05/15/18 History pregabalin [Lyrica] 225 mg PO BID 05/15/18 05/15/18 History tramadol 50 mg PO Q6H PRN 05/15/18 05/15/18 History Past Med/Surg History Medical History Epidural fibrosis (Chronic) left S1 nerve Tobacco use (Chronic) Obesity (Chronic) Osteoarthritis (Chronic) GERD (gastroesophageal reflux disease) (Chronic) Hyperlipidemia (Chronic) Hypertension (Chronic) Lumbar postlaminectomy syndrome (Chronic) Left lumbar radiculitis (Chronic) Myofascial pain (Chronic) Cervicalgia (Chronic) Cervical facet syndrome (Chronic) Cervical spinal stenosis (Chronic) C5-6 History of NC (myocardial infarction) (Chronic) CAD (coronary artery disease) (Chronic) Cervical radiculitis (Resolved) Surgical History H/O heart artery stent (Resolved) History of PTCA (Resolved) History of bilateral tubal ligation (Resolved) History of carpal tunnel release (Resolved) History of cholecystectomy (Resolved) History of lumbar fusion (Resolved) Posterior decompression and instrumented fusion of L4-S1 03/19/2014 Dr. Montesinos History of mandibular surgery (Resolved) S/P lumbar laminectomy (Resolved 03/19/14) S/P total knee arthroplasty (Resolved) Right Social History Feels Safe at Home: Yes Smoking Status: Current every day smoker Preferred Language: Bruneian Review of Systems All systems reviewed & are unremarkable except as noted in HPI & below Physical Exam 2 Vital Signs (Past 24 Hours): Last Vital Signs Temp 36.4 C L 05/15/18 05:53 Pulse 66 05/15/18 07:16 Resp 20 05/15/18 07:16 BP 144/75 H 05/15/18 07:16 Pulse Ox 95 05/15/18 07:16 Constitutional: WD/WN, vitals as above no acute distress Eyes: PERRL, conjunctivae normal, anicteric sclerae ENMT: external ear and nose normal, oropharynx normal Neck: trachea midline, no thyromegaly Respiratory: normal respiratory effort, lungs clear to auscultation Cardiovascular: RRR, no murmur, no edema Gastrointestinal (Abdomen): Inspection/Auscultation: + abdomen distended Abdomen distended moderately with some tympany to percussion. Mildly tender to palpation. In the right groin there is a small but firm mass consistent with an incarcerated hernia. This is moderately tender to palpation. Musculoskeletal: no cyanosis or clubbing, extremities motor strength 5/5 Skin: no rashes, warm and dry Neurologic: PERRL, EOMI, accommodation nl, no face palsy, no dysarthria CN' s II-XI intact bilaterally Psychiatric: A+Ox3, euthymic affect Lymphatic: no cervical or axillary lymphadenopathy Results & Data Laboratory Results Laboratory Results - last 24 hr 05/15/18 05/15/18 05/15/18 06:20 06:25 06:25 WBC 10.29 RBC 4.80 Hgb 15.8 POC Hgb Hct 46.0 POC Hct MCV 95.8 MCH 32.9 MCHC 34.3 RDW Std Deviation 48.1 H RDW Coeff of Tigre 13.8 Plt Count 150 MPV 10.8 H Immature Gran % (Auto) 0.3 Neut % (Auto) 77.2 Lymph % (Auto) 13.9 Jones % (Auto) 8.1 Eos % (Auto) 0.3 Baso % (Auto) 0.2 Immature Gran # (Auto) 0.03 H Neut # (Auto) 7.95 H Lymph # (Auto) 1.43 Jones # (Auto) 0.83 H Eos # (Auto) 0.03 Baso # (Auto) 0.02 POC Sodium Sodium 140 POC Potassium Potassium 3.4 L POC Chloride Chloride 101 Carbon Dioxide 31 POC Total CO2 Anion Gap 8.0 POC Anion Gap POC BUN BUN 11 Creatinine 0.86 POC Creatinine Est Cr Clr Drug Dosing 62.5 Est GFR ( Amer) 82.7 Est GFR (Non-Af Amer) 71.4 BUN/Creatinine Ratio 13.2 Glucose 109 H POC Glucose (other) Calcium 9.7 POC Ioniz Calcium Geovanna Total Bilirubin 0.7 AST 22 ALT 36 Alkaline Phosphatase 55 Troponin I Total Protein 7.1 Albumin 3.5 Globulin 3.6 Albumin/Globulin Ratio 1.0 Lipase 82 Urine Color Dark Yellow Urine Appearance Clear Urine pH 7.0 Ur Specific [place] 1.021 Urine Protein Negative Urine Glucose (UA) Negative Urine Ketones 2+ H Urine Blood Negative Urine Nitrite Negative Urine Bilirubin Negative Urine Urobilinogen Positive H Ur Leukocyte Esterase Negative 05/15/18 05/15/18 06:25 06:30 WBC RBC Hgb POC Hgb 15.3 Hct POC Hct 45 MCV MCH MCHC RDW Std Deviation RDW Coeff of [place] Plt Count MPV Immature Gran % (Auto) Neut % (Auto) Lymph % (Auto) Jones % (Auto) Eos % (Auto) Baso % (Auto) Immature Gran # (Auto) Neut # (Auto) Lymph # (Auto) Jones # (Auto) Eos # (Auto) Baso # (Auto) POC Sodium 140 Sodium POC Potassium 3.4 Potassium POC Chloride 97 L Chloride Carbon Dioxide POC Total CO2 31 Anion Gap POC Anion Gap 16.0 POC BUN 11 BUN Creatinine POC Creatinine 0.8 Est Cr Clr Drug Dosing Est GFR ( Amer) Est GFR (Non-Af Amer) BUN/Creatinine Ratio Glucose POC Glucose (other) 114 H Calcium POC Ioniz Calcium Geovanna 1.19 Total Bilirubin AST ALT Alkaline Phosphatase Troponin I < 0.015 Total Protein Albumin Globulin Albumin/Globulin Ratio Lipase Urine Color Urine Appearance Urine pH Ur Specific [place] Urine Protein Urine Glucose (UA) Urine Ketones Urine Blood Urine Nitrite Urine Bilirubin Urine Urobilinogen Ur Leukocyte Esterase Diagnostic Findings CT abd pelvis IV con only CLINICAL HISTORY: 63 years-old Female presenting with lower abd pain. TECHNIQUE: Multidetector CT of the abdomen and pelvis was performed after the administration of intravenous contrast. IV contrast: 93 mL of Optiray 320. One or more dose lowering techniques were used consistent with the principles of ALARA (as low as reasonably achievable), including automatic exposure control, mA or kV adjustment to individual patient size, and/or use of iterative reconstruction. COMPARISON: None. CT DOSE (mGy.cm): The estimated cumulative dose is 530.49 mGy.cm. FINDINGS: Cell Maker topogram: Cholecystectomy clips. Lung bases: Normal heart size. No pericardial or pleural effusion. Bandlike and groundglass opacities in the lung bases likely atelectasis. Liver: Normal morphology. Subcentimeter irregular hypodense lesion in the posterior right hepatic lobe, indeterminate though possibly hemangioma (series 3 image 84). Patent hepatic vasculature. Biliary: Mild biliary ductal prominence likely a reservoir effect in the post cholecystectomy state. Gallbladder surgically absent. Pancreas: Moderate parenchymal atrophy. Spleen: Normal. Adrenal glands: Normal. Kidneys and ureters: Normal renal parenchyma. Nonobstructing punctate right renal calculus. Extrarenal pelvis on the right. No hydronephrosis. Ureters nondistended. Bladder: Incompletely evaluated secondary to underdistention. Pelvic organs: Globular appearance of the uterus may imply underlying fibroids. Alternatively, the lobular appearance along the left fundus may be ovarian in etiology (series 3 image 307. Bowel: The colon is decompressed. The cecum is located in the right upper quadrant. The appendix is not visualized. Significant distention of proximal small bowel is a diameter of over 3 cm. Dilated small bowel is primarily fluid containing. There is a smooth transition to slightly less dilated small bowel in the jejunum. Interloop fluid is evident within the mesenteric leaves. There is a focal transition point at the right femoral hernia. There is small amount of fluid within the hernia sac as well as the small bowel loop. Small bowel distal to to this site is completely decompressed. Peritoneal cavity: Trace free fluid within the leaves of the mesentery. No free intraperitoneal gas. Free fluid in the hernia sac as mentioned. Lymph nodes: No enlarged lymph nodes in the abdomen or pelvis. Vasculature: Atherosclerosis of the normal caliber abdominal aorta. IVC patent. There is mild compression of the traversing right common femoral vein along the right femoral hernia. Abdominal wall: No additional abdominal wall hernia identified. Musculoskeletal: Degenerative changes of the spine. IMPRESSION: 1. Complete small bowel obstruction with a transition point at the right femoral hernia. Complete decompression of distal small bowel and colon. Surgical consultation and decompression advised. 2. Indeterminate subcentimeter hypodense lesion in the right hepatic lobe, which is favored to represent a hemangioma. If there is a history of malignancy or hepatocellular risk factors, further evaluation with dedicated liver MRI would be recommended. The report will be called/faxed according to standard departmental protocol.
[2018-05-15] MEDS ORDERED: BUPIVACAINE 0.5 % 5 MG/1 ML MPF 30ML VIAL ONE (10:02)
--- NOTE | 2018-05-15 11:01 | Anesthesiology Consultation ---
Date of Service May 15, 2018 Assessment & Plan Chart Review Chart Review: Acceptable Risk for Surgery and Patient NOT seen in Pre Admission Testing Consults Requested none ASA [id number] Proposed Anesthesia Anesthesia Type: General Anesthesia Line Insertion: Arterial line Risk / Benefits Reviewed With: PT / POA / Parent / Guardian, Accepts Plan and Informed Consent Obtained NPO Date Last Intake of Fluids: 05/15/18 Time Last Intake of Fluids: 02:00 Last Intake of Fluids Comment: sip or two of water Date Last Intake of Solids: 05/14/18 Time Last Intake of Solids: 11:00 History Surgery Operation Date: 05/15/18 09:35 Proposed Procedures p Laparoscopic Femoral Hernia Repair - Gabriel Mccall, , FACS Height/Weight Height: 5 ft 1 in Weight: 78 kg Allergies Allergy/AdvReac Type Severity Reaction Status Date / Time tapentadol [From Nucynta] AdvReac Unknown Confusion Verified 05/15/18 06:44 Medications Home Medications Medication Instructions Recorded Confirmed Last Taken aspirin 81 mg tablet,delayed 81 mg PO DAILY 01/13/18 05/15/18 Unknown release atorvastatin 80 mg tablet 80 mg PO HS tab 01/13/18 05/15/18 Unknown lisinopril 5 mg tablet 5 mg PO DAILY 01/13/18 05/15/18 Unknown niacin 500 mg tablet 500 mg PO BID tab 01/13/18 05/15/18 Unknown sucralfate 1 gram tablet 2 gm PO BID tab 01/13/18 05/15/18 Unknown tramadol ER 200 mg tablet,extended 200 mg PO DAILY PRN 01/13/18 05/15/18 Unknown release 24 hr metoprolol tartrate 25 mg PO BID 05/15/18 05/15/18 Unknown pregabalin [Lyrica] 225 mg PO BID 05/15/18 05/15/18 Unknown tramadol 50 mg PO Q6H PRN 05/15/18 05/15/18 Unknown Active Medications Generic Name Dose Route Start Last Admin Trade Name Freq PRN Reason Stop Dose Admin Ioversol 93 ml 05/15/18 07:05 05/15/18 07:08 Optiray 320 100ml IV 05/19/18 07:04 93 ml ONCE PRN Administration Interaction Checking Past Medical History Medical History Epidural fibrosis (Chronic) left S1 nerve Tobacco use (Chronic) Obesity (Chronic) Osteoarthritis (Chronic) GERD (gastroesophageal reflux disease) (Chronic) Hyperlipidemia (Chronic) Hypertension (Chronic) Lumbar postlaminectomy syndrome (Chronic) Left lumbar radiculitis (Chronic) Myofascial pain (Chronic) Cervicalgia (Chronic) Cervical facet syndrome (Chronic) Cervical spinal stenosis (Chronic) C5-6 History of ID (myocardial infarction) (Chronic) CAD (coronary artery disease) (Chronic) Cervical radiculitis (Resolved) Past Surgical History Surgical History H/O heart artery stent (Resolved) History of PTCA (Resolved) History of bilateral tubal ligation (Resolved) History of carpal tunnel release (Resolved) History of cholecystectomy (Resolved) History of lumbar fusion (Resolved) Posterior decompression and instrumented fusion of L4-S1 03/19/2014 Dr. Montesinos History of mandibular surgery (Resolved) S/P lumbar laminectomy (Resolved 03/19/14) S/P total knee arthroplasty (Resolved) Right Past Anesthesia History No Hx of Anesthesia Complications and No Family Hx of Anesthesia Complications History of PONV Yes Motion Sickness Screening History of Motion Sickness: No Social History Smoking Status: Current every day smoker Smoking cigarettes per day: 1-01/24 PPd Exercise / Class Metabolic Activity III < 4 Walking/Shop/Light housework Physical Exam Vital Signs Last Vital Signs Temp 36.4 C L 05/15/18 05:53 Pulse 72 05/15/18 10:03 Resp 20 05/15/18 10:50 BP 108/69 05/15/18 10:50 Pulse Ox 94 05/15/18 10:50 ENMT Mouth: + edentulous Thyromental Distance: > or= 3.5 Finger Breadths Mallampati Class: II Neck normal visual inspection and trachea midline; neck extension not limited Respiratory normal respiratory effort Auscultation: lungs clear to auscultation bilaterally Cardiovascular Rate/Rhythm: regular rate and regular rhythm Heart Sounds: no murmur Vessels: no carotid bruit Musculoskeletal Spine: normal cervical ROM Neurologic moves all extremities Motor/Sensory: no sensory deficit Psychiatric Orientation: alert and oriented x 3 Testing Laboratory Results 05/15/18 06:25 05/15/18 06:25 Urine Color Dark Yellow 05/15/18 06:20 Urine Appearance Clear (Clear) 05/15/18 06:20 Urine pH 7.0 (4.5-7.5) 05/15/18 06:20 Ur Specific [place] 1.021 (1.000-1.030) 05/15/18 06:20 Urine Protein Negative (Negative) 05/15/18 06:20 Urine Glucose (UA) Negative (Negative) 05/15/18 06:20 Urine Ketones 2+ (Negative) H 05/15/18 06:20 Urine Nitrite Negative (Negative) 05/15/18 06:20 Ur Leukocyte Esterase Negative (Negative) 05/15/18 06:20 05/15/18 06:30 POC Glucose (other) 114 H
[2018-05-15] MEDS ORDERED: CEFAZOLIN 250 MG/ML 1 GM VIAL ONE (11:37)
[2018-05-15] MEDS ORDERED: ePHEDrine sulfate 50 MG/ML AMP IV PRN (11:55)
[2018-05-15] MEDS ORDERED: LABETALOL HCL IV 5 MG/ML 20ML IV PRN (11:55)
[2018-05-15] MEDS ORDERED: SUCCINYLCHOLINE 100MG/5ML SYR ONE (11:55)
[2018-05-15] MEDS ORDERED: ROCURONIUM BROMIDE 10 MG/ML 5 ML VIAL ONE (11:55)
[2018-05-15] MEDS ORDERED: ATROPINE SULFATE 0.1 MG/ML 10ML SYR IV PRN (11:55)
[2018-05-15] MEDS ORDERED: ONDANSETRON INJ 2 MG/ML 2 ML VIAL IV PRN ×2 (11:55→13:41)
[2018-05-15] MEDS ORDERED: NALOXONE HCL 0.4 MG/1 ML VIAL/CARP IV PRN (11:55)
[2018-05-15] MEDS ORDERED: PROMETHAZINE HCL 12.5 MG in SODIUM CHLORIDE 0.9% 50 ML IV PRN (11:55)
[2018-05-15] MEDS ORDERED: HYDROmorphone INJ 1 MG/ML SYRINGE IV PRN (11:55)
[2018-05-15] MEDS ORDERED: FLUMAZENIL 0.1 MG/1 ML 10 ML VIAL IV PRN (11:55)
[2018-05-15] MEDS ORDERED: CEFAZOLIN 2000MG 2,000 MG/15 ML SYR IV SCH (12:00)
[2018-05-15] MEDS ORDERED: BUPIVACAINE LIPOSOME 1.3% 266 MG/20 ML VIAL ONE (12:18)
[2018-05-15] MEDS ORDERED: ESMOLOL HCL INJ 10 MG/ML 10ML VIAL IV ONE (12:50)
--- NOTE | 2018-05-15 13:38 | Post Operative Brief Note ---
Immediate Post Op Note v1 Date of Surgery May 15, 2018 Pre & Post Diagnosis Operation Date: 05/15/18 09:35 Pre-Op Diagnosis: Complete Small Bowel Obstruction with a Right Femoral Hernia Post-Op Diagnosis: Complete Small Bowel Obstruction with a Right Strangulated Femoral Hernia Procedure Operation Date: 05/15/18 09:35 Actual Procedures p Diagnostic Laparoscopy, Open Small Bowel Resection, Repair of Strangulated Hernia (Right) - Gabriel Mccall DO, ABY Surgeon Gabriel Mccall DO, ABY Connie Cleaner Vilma Kingsley PA Estimated Blood Loss 10 Findings Consistent with Post-Op Diagnosis diagnostic laparoscopy performed, femoral hernia identified. 2nd port placed, bowel bagan to reduce but appeared ischemic, small enterotomy with spillage of succus during reduction, converted to open. Low midine incision and left groin incision performed. bowel reduced, 10cm section with antimesenteric ischemia and enterotomy excised using stapler, mesentery excised with harmonic. hernia sac reduced, partially ischemic, excised with harmonic, peritoneal defect closed with vicryl. Side to side functional end to end small bowel anastomosis performed using stapler, reinforced with 3-0 lembert sutures, mesenteric defect closed. Remainder of bowel run, no abnormality. Ovitech mesh placed in preperitoneal space, tached to ayana's and lateral abdominal wall using 0 nurolon suture. Fascia closed with 0 PDS. Femoral defect closed through groin incision using interrupted 0 Nurolon suture. Exparel injected, wound irrigated , closed with vicryl and jillian. Specimens small bowel hernia sac Drains Estrada Catheter (A 16 Dominican estrada catheter was inserted by Chayo Moore RN, without difficulty, clear yellow urine obtained, output to be montiored by Anesthesia.) Anesthesia Type General Complications none Disposition Accompanied Patient To Recovery: No Disposition: Recovery Room
[2018-05-15] MEDS ORDERED: MoRPHine SULFATE 4 MG/ML 1 ML CARP\\VIAL IV PRN ×4 (13:41→15:22)
[2018-05-15] MEDS ORDERED: ACETAMINOPHEN 1,000 MG/100 ML VIAL IV SCH (14:00)
--- NOTE | 2018-05-15 14:06 | Operative Report ---
Post Operative Report Pre & Post Diagnosis Operation Date: 05/15/18 09:35 Pre-Op Diagnosis: Complete Small Bowel Obstruction with a Right Femoral Hernia Post-Op Diagnosis: Complete Small Bowel Obstruction with a Right Strangulated Femoral Hernia Procedure Operation Date: 05/15/18 09:35 Actual Procedures p Diagnostic Laparoscopy, Open Small Bowel Resection, Repair of Strangulated Hernia (Right) - Gabriel Mccall DO, ABY Surgeon Gabriel Mccall DO, ABY [employer] Vilma Kingsley PA Estimated Blood Loss 10 Findings Consistent with Post-Op Diagnosis Diagnostic laparoscopy performed, femoral hernia identified. 2nd port placed, bowel began to reduce but appeared ischemic, small enterotomy with spillage of succus during reduction, converted to open. Low midine incision and left groin incision performed. bowel reduced, 10cm section with antimesenteric ischemia and enterotomy excised using stapler, mesentery excised with harmonic. hernia sac reduced, partially ischemic, excised with harmonic, peritoneal defect closed with vicryl. Side to side functional end to end small bowel anastomosis performed using stapler, reinforced with 3-0 lembert sutures, mesenteric defect closed. Remainder of bowel run, no abnormality. Ovitex mesh placed in preperitoneal space, tached to gonzalo's and lateral abdominal wall using 0 nurolon suture. Fascia closed with 0 PDS. Femoral defect closed through groin incision using interrupted 0 Nurolon suture. Exparel injected, wound irrigated , closed with vicryl and jillian. Specimens Hernia sac Small bowel Anesthesia Type General Complications none Disposition Accompanied Patient To Recovery: No Disposition: Recovery Room Indications 63-year-old female with 4-day history of nausea vomiting and abdominal pain, presented to the ER where a CT scan showed an incarcerated right femoral hernia with bowel obstruction. Plan for laparoscopic right femoral hernia repair, possible open. The risks of the procedure were discussed, all questions were answered, and the patient agreed to proceed with surgery as planned. Description of Procedure The patient was properly identified, consented, and taken to the operating room where she was placed in the supine position. General endotracheal anesthesia was induced. SCDs and a safety belt were placed. Preoperative antibiotics were administered. The patient's abdomen and bilateral groins were prepped and draped in the standard sterile fashion. A surgical timeout was performed and all parties were in agreement that this was the correct patient and procedure to be performed and we continued as planned. An incision was made superior and to the left of the umbilicus overlying the rectus muscle and the Veress needle was inserted. Saline drop test confirmed entry into the peritoneum. The abdomen was insufflated with carbon dioxide which the patient tolerated without incident. The abdomen was then entered using the Optiview technique and a 5 mm trocar. The laparoscope was inserted and no damage from initial trocar or Veress needle placement was noted. The bowel was moderately dilated. There was an obvious right femoral hernia with decompressed bowel exiting from the hernia site. Attempt to reduce the bowel manually by pressing directly over the femoral hernia and was unsuccessful. A 5 mm trocar was then placed in the right upper quadrant. Again I attempted to reduce the bowel with gentle traction on the small bowel and manual pressure over the femoral hernia. The hernia began to reduce but appeared to be moderately ischemic. During my attempts to reduce the hernia a small enterotomy occurred near the area of ischemia resulting spilled succus. This was controlled, however we decided to convert to open. A low midline incision was made using electrocautery and the midline fascia was divided. The abdomen was entered and the small bowel was eviscerated. Again attempts to reduce the hernia were unsuccessful the defect appeared quite small. The left groin incision was made and deepened down below the inguinal ligament. The hernia sac was identified. The bowel was then reduced after some blunt dissection and opening the defect slightly larger. That bowel was then eviscerated and appeared relatively ischemic, especially on the antimesenteric border. The enterotomy was evident near the area of the antimesenteric ischemia. 10 cm of small bowel were then resected. Purple loaded Endo CICI stapler was used to divide the bowel. The mesentery was divided with harmonic. A [id number] functional end-to-end anastomosis was then created. The abdomen was draped with white towels, the antimesenteric corners were excised on both piece of small bowel and the anastomosis was created using sequential fires of a 60 mm purple loaded CICI stapler. The staple line and common enterotomy were then resected and closed using kowalski loaded 60 mm purple Endo CICI stapler x2. The anastomosis was reinforced with interrupted 3-0 silk Lembert sutures. The mesenteric defect was closed with a 2 -0 Vicryl suture. The anastomosis was patent and appeared to have no leaks. It was allowed to drop back into the abdomen. The abdominal cavity was copiously irrigated. The hernia sac was then completely reduced, and the fat appeared ischemic. This was resected. The peritoneal defect was then closed with a running 2-0 Vicryl suture. The fascial defect was palpated and was approximately 1 cm in size. The abdomen was then reexamined and the bowel appeared viable, the bowel was run and there is no additional injuries. The NG tube was confirmed in place in the stomach. Abdomen was irrigated and the peritoneum was closed with a running 2-0 Vicryl. The preperitoneal pouch was then created and a piece of Ovitex mesh was then placed in the preperitoneal space. It was tacked to Gonzalo 's ligament and to the abdominal wall using 0 Nurolon suture. It covered the femoral and inguinal hernia spaces. The abdominal fascia was then closed using a running 0 PDS suture. The incision was irrigated and the fascia was injected with Exparel. Skin was then closed with interrupted 3-0 Vicryl deep dermal sutures followed by jillian. Attention then turned to the right groin incision. Femoral hernia space was closed with interrupted 0 Nurolon sutures. The groin incision was irrigated. Horace's fascia was closed with a running 2-0 Vicryl suture. Incision was then closed with interrupted 3-0 Vicryl deep dermal sutures followed by jillian. Sterile dressings were applied. The 2 port site incisions were closed with interrupted 4-0 Monocryl suture. The patient was extubated in the operating room and taken to the PACU where she recovered without apparent incident. The NG tube and Frederick were left in place. All sponge, instrument and needle counts were correct at the conclusion of the procedure. The patient tolerated the procedure well. The physician's reading assistant was present and scrubbed for the entirety of the case and was essential in positioning the patient, prepping and draping, retraction and exposure, driving the laparoscope, resection of the bowel and creation of the anastomosis, repair of the hernia, and closure of the incisions, and placement of the dressings. I attest to the content of the Intraoperative Record and any orders documented therein. Any exceptions are noted below.
[2018-05-15] MEDS ORDERED: ALBUMIN HUMAN 5% 12.5 GM/250 ML VIAL IV ONE (14:08)
[2018-05-15] MEDS ORDERED: ALBUMIN 5% 250 ML IV SCH ×2 (14:15→15:15)
[2018-05-15] MEDS ORDERED: PHENYLEPHRINE HCL 20 MG in DEXTROSE 5% 500 ML IV SCH (14:30)
[2018-05-15 15:21] LABS: Hematocrit (blood only) 49.8 % (37-47); Hemoglobin 16.4 g/dL (12.0-16.0)
[2018-05-15] MEDS: LACTATED RINGER'S 1,000 ML IV SCH ×2 (15:30→19:59)
--- NOTE | 2018-05-15 16:34 | Anesthesiology Progress Note ---
Date of Service May 15, 2018 Anesthesia Post Procedure Vital Signs Vital Signs: Temp Pulse Pulse Pulse Resp BP BP 05/15/18 16:20 127 H 20 95/58 L 05/15/18 16:10 113 H 22 108/63 05/15/18 16:00 112 H 22 102/63 05/15/18 15:50 108 H 22 104/66 05/15/18 15:40 109 H 22 105/70 05/15/18 15:30 102 H 20 101/64 05/15/18 15:20 100 H 19 106/65 05/15/18 15:10 103 H 21 97/64 L 05/15/18 15:00 105 H 22 104/62 05/15/18 14:55 103 H 22 101/66 05/15/18 14:50 110 H 22 85/58 L 05/15/18 14:40 112 H 24 91/62 L 05/15/18 14:30 104 H 21 85/58 L 05/15/18 14:20 104 H 22 89/59 L 05/15/18 14:10 98 H 22 99/59 L 05/15/18 14:00 95 H 24 91/59 L 05/15/18 13:50 85 21 99/56 L 05/15/18 13:43 36.6 C 90 17 71/53 L 05/15/18 10:56 37.4 C 68 16 128/74 05/15/18 10:50 20 108/69 05/15/18 10:03 72 20 109/66 05/15/18 07:16 66 20 144/75 H 05/15/18 05:53 36.4 C L 79 18 100/69 Pulse Ox 05/15/18 16:20 93 05/15/18 16:10 97 05/15/18 16:00 95 05/15/18 15:50 95 05/15/18 15:40 97 05/15/18 15:30 97 05/15/18 15:20 98 05/15/18 15:10 98 05/15/18 15:00 99 05/15/18 14:55 98 05/15/18 14:50 97 05/15/18 14:40 97 05/15/18 14:30 97 05/15/18 14:20 96 05/15/18 14:10 99 05/15/18 14:00 99 05/15/18 13:50 99 05/15/18 13:43 100 05/15/18 10:56 92 05/15/18 10:50 94 05/15/18 10:03 90 05/15/18 07:16 95 05/15/18 05:53 96 Pain Intensity Abdomen: Pain Intensity: 3 Notes Mental Status: alert / awake / arousable and participated in evaluation Nausea / Vomiting: adequately controlled Pain: adequately controlled Airway Patency, RR, SpO2: stable & adequate BP & HR: stable & adequate Hydration State: stable & adequate Anesthetic Complications: no major complications apparent and Pt Satisfied with anesthetic care Notes: The patient is a 63 y/o female with hx of MO, CAD, HTN, DLD, GERD, COPD and obesity s/p emergent laparoscopic femoral hernia repair. The patient has been feeling ill for several days with poor PO intake and emesis. She required a phenylephrine drip intraoperatively to maintain BPs in the 100s/60. The patient received 1900 cc crystalloid intraoperatively and EBL was 100cc. The patient continued to require phenylephrine in recovery to maintain adequate blood pressures. Dr. Callaway who was the physician for the case obtained an EKG which showed no signs of ischemia and a troponin which was negative. The patient's last echocardiogram from 2016 showed EF 50-55% and grade 1 diastolic dysfunction. The patient was fluid resuscitated with addition crystalloid and 500cc of 5% Albumin. The phenylephrine drip was weaned off and the patient's BP is in the low 90s/50s HR 120s. The patient is asymptomatic and states she feels much better than before surgery. The patient is currently receiving her fourth bag of crystalloid. Dr. Moran from internal medicine was consulted and came to the bedside to evaluate the patient. He agrees that the patient is still likely volume depleted. He would like the patient to be transferred to [facility] for close monitoring. Dr. Mccall was made aware.
[2018-05-15] MEDS ORDERED: ACETAMINOPHEN 1000 MG/100 ML IV IV ONE (16:36)
[2018-05-15] MEDS ORDERED: ACETAMINOPHEN 1,000 MG/100 ML VIAL IV ONE (16:47)
--- NOTE | 2018-05-15 17:12 | Hospitalist Consultation ---
Date of Consultation May 15, 2018 Assessment & Plan (1) Hypotension: Will start Nor-epenephrine at 0.05 mcg/kg/min If no improvement, will need central line Monitor in the ICU Continue fluid support with LR at 125ml/hr Follow urine output (2) Small bowel obstruction: Taken emergently to the operating theater by Dr. Mccall Patient had incarcerated right inguinal hernia * Required conversion from laparoscopic to open procedure Patient has small bowel obstruction * Removal of approximately 10 cm of bowel with good anastomosis Estimated blood loss 20 mL Soft blood pressures requiring some Praveen-Synephrine A total of 4 L of lactated Ringer's were administered Transfer to intensive care unit for overnight monitoring (3) Incarcerated femoral hernia: See above for operative course Further management per Dr. Mccall and surgical team (4) CAD (coronary artery disease): Prior history of AZ * Cardiac catheterization with no stents and no CABG required * Patient reports that she developed good collaterals * Continue metoprolol, lisinopril, aspirin * Monitor on telemetry * EKG on arrival in ICU (5) Hypertension: Currently hypotensive postsurgically Continue lactated Ringer's May require pressors Monitor in ICU overnight Check EKG (6) Hyperlipidemia: Continue niacin and simvastatin when patient able to take oral meds (7) GERD (gastroesophageal reflux disease): Pantoprazole 40 mg IV daily May convert to p.o. when patient able to take meds by mouth (8) Tobacco use: Patient smokes 1-5 cigarettes daily Discuss complete abstention Palomo states that she is able to quit and is committed to do so Patient refusing NicoDerm patch at this time (9) COPD (chronic obstructive pulmonary disease): COPD is listed in the patient's history however patient denies ever having PFTs or following with pulmonology At this point patient is oxygenating well Discussed need for complete abstention of tobacco use We will continue to follow oxygenation status (10) DVT prophylaxis: SCD's and ISABEL hose Chemical prophylaxis per surgery Thank you for including us in the care of this patient. Please refer to Dr. Moran's addendum for any further recommendations. Dr. Mccall will be the attending for this patient. Supervising Physician Co-Signing Physician Notes Attending note: patient seen and examined with Gregorio RAJPUT I agree with her HPI, history, exam, ROS and A/P. I personally reviewed the labs and imaging findings. Patient seen initially in the PACU for hypotension, tachycardia for HR in the 130s after undergoing small bowel resection and femoral hernia repair. EBL was minimal but UO was suboptimal during surgery and in the PACU. Discussed recent health with patient. She had not eaten much or had much fluids for a few days prior to admission early this morning. She had some vomiting yesterday. She was still with borderline hypotenstion and tachycardia despite 3 liters of fluid and Albumin infusion. Despite her low blood pressure, she was mentating normally. Minimal complaints of abdominal pain, no nausea. NGT in place with minimal output. - Hypotenstion: associated with hypovolemia, profound dehydration due to poor oral intake, vomiting prior to admission also, the patient was converted to open procedure, OR time was 2 hours, so she had some insensible losses with open abdomen continue aggressive IV hydration responded quite well to Levophed, continue this evening, titrate off as patient tolerates - Hypokalemia and Hypokalemia: replaced, repeat levels in the morning - Incarcerated femoral hernia with small bowel obstruction, ischemia s/p small bowel resection, hernia repain on 05/15 will transfer to ICU to observe closely overnight, utilize pressor support Dr. Mccall is primary for rest of details see full consultation History of Present Illness Reason for Consultation: Postoperative management Requesting Physician: Dr. Mccall Attending Physician: Dr. Mccall History of Present Illness Attending: Dr. Fran Moran Is a 63-year-old female that presented to the emergency department with 4 days of abdominal pain. She is found to have a bowel obstruction and was taken emergently to the operating theater. Dr. Mccall was able to release adhesions and he did remove approximately 10 cm of bowel and had good anastomosis. Due to the amount of adhesions patient had to have laparoscopic procedure converted to an open procedure. EBL was only about 20 mL. Patient did have some soft blood pressures and was given norepinephrine during the procedure. She also received 4 L of lactated Ringer's. At this time patient's blood pressure is soft with a systolic blood pressure of 89 and we are asked to consult for medical management and cooperation with the surgical team. The patient follows with Dr. Satya Lemus and has a history of AZ with no intervention due to creation of collaterals. She was placed on metoprolol, aspirin, and lisinopril. Hyperlipidemia is managed with atorvastatin 80 mg daily as well as niacin 500 mg p.o. twice daily.She has a history of CAD, hyperlipidemia, GERD, osteoarthritis, epidural fibrosis, lumbar pain status post surgery x2, obesity, and tobacco abuse. Should be noted that the patient is on significant pain medication including Lyrica to 25 mg p.o. twice daily, tramadol ER 200 mg daily, and tramadol 50 mg p.o. every 6 hours as needed for breakthrough pain. She follows with Dr. Tanja Osuna and was scheduled to see her next Saturday. She has had multiple injections in the lumbar region for pain. Allergies Allergy/AdvReac Type Severity Reaction Status Date / Time Iodinated Contrast- Oral and Allergy Mild rash Unverified 05/15/18 19:05 IV Dye tapentadol [From Nucynta] AdvReac Unknown Confusion Verified 05/15/18 06:44 Home Medications Home Medications Medication Instructions Recorded Confirmed Type aspirin 81 mg tablet,delayed 81 mg PO DAILY 01/13/18 05/15/18 History release atorvastatin 80 mg tablet 80 mg PO HS tab 01/13/18 05/15/18 History lisinopril 5 mg tablet 5 mg PO DAILY 01/13/18 05/15/18 History niacin 500 mg tablet 500 mg PO BID tab 01/13/18 05/15/18 History sucralfate 1 gram tablet 2 gm PO BID tab 01/13/18 05/15/18 History tramadol ER 200 mg tablet,extended 200 mg PO DAILY PRN 01/13/18 05/15/18 History release 24 hr metoprolol tartrate 25 mg PO BID 05/15/18 05/15/18 History pregabalin [Lyrica] 225 mg PO BID 05/15/18 05/15/18 History tramadol 50 mg PO Q6H PRN 05/15/18 05/15/18 History Patient History Medical History Epidural fibrosis (Chronic) left S1 nerve Tobacco use (Chronic) Obesity (Chronic) Osteoarthritis (Chronic) GERD (gastroesophageal reflux disease) (Chronic) Hyperlipidemia (Chronic) Hypertension (Chronic) Lumbar postlaminectomy syndrome (Chronic) Left lumbar radiculitis (Chronic) Myofascial pain (Chronic) Cervicalgia (Chronic) Cervical facet syndrome (Chronic) Cervical spinal stenosis (Chronic) C5-6 History of AZ (myocardial infarction) (Chronic) CAD (coronary artery disease) (Chronic) Cervical radiculitis (Resolved) Surgical History H/O heart artery stent (Resolved) History of PTCA (Resolved) History of bilateral tubal ligation (Resolved) History of carpal tunnel release (Resolved) History of cholecystectomy (Resolved) History of lumbar fusion (Resolved) Posterior decompression and instrumented fusion of L4-S1 03/19/2014 Dr. Montesinos History of mandibular surgery (Resolved) S/P lumbar laminectomy (Resolved 03/19/14) S/P total knee arthroplasty (Resolved) Right Social History Current Living Situation: Spouse Other Information That Helps Us Care for You: No Feels Safe at Home: Yes Safety Concerns: Feels Safe At This Time Smoking Status: Current every day smoker Tobacco Type: cigarettes Cigarettes per Day: 1/2 ppd Do You Dip or Chew Tobacco: No Second Hand Exposure: Yes Tobacco Cessation Education Requested by Patient: No Hx Alcohol Use: Yes Alcohol type: wine Alcohol Intake Frequency: holidays/ special occasions only Hx Substance Use: No Beliefs That Will Affect Care: None Preferred Language: Lithuanian Communication Ability: Effective Barrel Tester Required: No Review of Systems A total of 12 systems was reviewed and is negative other than as listed above in the HPI Physical Exam 2 Vital Signs (Past 24 Hours): Last Vital Signs Temp 37.4 C 05/15/18 16:40 Pulse 123 H 05/15/18 17:00 Resp 21 05/15/18 17:00 BP 91/49 L 05/15/18 17:00 Pulse Ox 94 05/15/18 17:00 Physical Exam: GENERAL : No acute distress. Pleasant EYES: No icterus, gaze conjugate NOSE: No evidence of epistaxis. Nasogastric tube is in place and to suction MOUTH: No lesions or candidiasis. No facial droop or deviation of tongue NECK: Supple. No JVD appreciated LUNGS: CTA B/L, no wheezes, rales or rhonchi HEART: Regular, rate controlled ABDOMEN: Soft, ND, BS Present. Laparoscopic trocar sites covered with clear dressing. There is a ventral bandage and dressing in place with no evidence of bleeding through. There is also a right inguinal bandage and dressing in place again with no evidence of bleeding 3. :Frederick catheter is in place and draining to gravity EXTREMITIES: No LE edema, pedal pulses intact * Patient has 2 peripheral IVs; an 18-gauge and a 20-gauge. NEURO: A&OX3 Able to move all 4 extremities at will and without difficulty. Vital signs were reviewed. * Patient's systolic blood pressure was 84 * Oral temperature is 37.7 Results & Data Laboratory Results 05/15/18 05/15/18 05/15/18 06:20 06:25 06:25 WBC 10.29 RBC 4.80 Hgb 15.8 POC Hgb Hct 46.0 POC Hct MCV 95.8 MCH 32.9 MCHC 34.3 RDW Std Deviation 48.1 H RDW Coeff of Tigre 13.8 Plt Count 150 MPV 10.8 H Immature Gran % (Auto) 0.3 Neut % (Auto) 77.2 Lymph % (Auto) 13.9 [place] % (Auto) 8.1 Eos % (Auto) 0.3 Baso % (Auto) 0.2 Immature Gran # (Auto) 0.03 H Neut # (Auto) 7.95 H Lymph # (Auto) 1.43 Monroe # (Auto) 0.83 H Eos # (Auto) 0.03 Baso # (Auto) 0.02 POC Sodium Sodium 140 POC Potassium Potassium 3.4 L POC Chloride Chloride 101 Carbon Dioxide 31 POC Total CO2 Anion Gap 8.0 POC Anion Gap POC BUN BUN 11 Creatinine 0.86 POC Creatinine Est Cr Clr Drug Dosing 62.5 Est GFR ( Amer) 82.7 Est GFR (Non-Af Amer) 71.4 BUN/Creatinine Ratio 13.2 Glucose 109 H POC Glucose (other) Calcium 9.7 POC Ioniz Calcium Geovanna Total Bilirubin 0.7 AST 22 ALT 36 Alkaline Phosphatase 55 Troponin I Total Protein 7.1 Albumin 3.5 Globulin 3.6 Albumin/Globulin Ratio 1.0 Lipase 82 Urine Color Dark Yellow Urine Appearance Clear Urine pH 7.0 Ur Specific [place] 1.021 Urine Protein Negative Urine Glucose (UA) Negative Urine Ketones 2+ H Urine Blood Negative Urine Nitrite Negative Urine Bilirubin Negative Urine Urobilinogen Positive H Ur Leukocyte Esterase Negative 05/15/18 05/15/18 05/15/18 06:25 06:30 15:05 WBC RBC Hgb 16.4 H POC Hgb 15.3 Hct 49.8 H POC Hct 45 MCV MCH MCHC RDW Std Deviation RDW Coeff of Tig[place] Plt Count MPV Immature Gran % (Auto) Neut % (Auto) Lymph % (Auto) Monroe % (Auto) Eos % (Auto) Baso % (Auto) Immature Gran # (Auto) Neut # (Auto) Lymph # (Auto) Monroe # (Auto) Eos # (Auto) Baso # (Auto) POC Sodium 140 Sodium POC Potassium 3.4 Potassium POC Chloride 97 L Chloride Carbon Dioxide POC Total CO2 31 Anion Gap POC Anion Gap 16.0 POC BUN 11 BUN Creatinine POC Creatinine 0.8 Est Cr Clr Drug Dosing Est GFR ( Amer) Est GFR (Non-Af Amer) BUN/Creatinine Ratio Glucose POC Glucose (other) 114 H Calcium POC Ioniz Calcium Geovanna 1.19 Total Bilirubin AST ALT Alkaline Phosphatase Troponin I < 0.015 Total Protein Albumin Globulin Albumin/Globulin Ratio Lipase Urine Color Urine Appearance Urine pH Ur Specific [place] Urine Protein Urine Glucose (UA) Urine Ketones Urine Blood Urine Nitrite Urine Bilirubin Urine Urobilinogen Ur Leukocyte Esterase 05/15/18 15:07 WBC RBC Hgb POC Hgb Hct POC Hct MCV MCH MCHC RDW Std Deviation RDW Coeff of [place] Plt Count MPV Immature Gran % (Auto) Neut % (Auto) Lymph % (Auto) [place] % (Auto) Eos % (Auto) Baso % (Auto) Immature Gran # (Auto) Neut # (Auto) Lymph # (Auto) Monroe # (Auto) Eos # (Auto) Baso # (Auto) POC Sodium Sodium POC Potassium Potassium POC Chloride Chloride Carbon Dioxide POC Total CO2 Anion Gap POC Anion Gap POC BUN BUN Creatinine POC Creatinine Est Cr Clr Drug Dosing Est GFR ( Amer) Est GFR (Non-Af Amer) BUN/Creatinine Ratio Glucose POC Glucose (other) Calcium POC Ioniz Calcium Geovanna Total Bilirubin AST ALT Alkaline Phosphatase Troponin I < 0.015 Total Protein Albumin Globulin Albumin/Globulin Ratio Lipase Urine Color Urine Appearance Urine pH Ur Specific [place] Urine Protein Urine Glucose (UA) Urine Ketones Urine Blood Urine Nitrite Urine Bilirubin Urine Urobilinogen Ur Leukocyte Esterase Diagnostic Findings CT abd pelvis IV con only CLINICAL HISTORY: 63 years-old Female presenting with lower abd pain. TECHNIQUE: Multidetector CT of the abdomen and pelvis was performed after the administration of intravenous contrast. IV contrast: 93 mL of Optiray 320. One or more dose lowering techniques were used consistent with the principles of ALARA (as low as reasonably achievable), including automatic exposure control, mA or kV adjustment to individual patient size, and/or use of iterative reconstruction. COMPARISON: None. CT DOSE (mGy.cm): The estimated cumulative dose is 530.49 mGy.cm. FINDINGS: Item Repair Manager topogram: Cholecystectomy clips. Lung bases: Normal heart size. No pericardial or pleural effusion. Bandlike and groundglass opacities in the lung bases likely atelectasis. Liver: Normal morphology. Subcentimeter irregular hypodense lesion in the posterior right hepatic lobe, indeterminate though possibly hemangioma (series 3 image 84). Patent hepatic vasculature. Biliary: Mild biliary ductal prominence likely a reservoir effect in the post cholecystectomy state. Gallbladder surgically absent. Pancreas: Moderate parenchymal atrophy. Spleen: Normal. Adrenal glands: Normal. Kidneys and ureters: Normal renal parenchyma. Nonobstructing punctate right renal calculus. Extrarenal pelvis on the right. No hydronephrosis. Ureters nondistended. Bladder: Incompletely evaluated secondary to underdistention. Pelvic organs: Globular appearance of the uterus may imply underlying fibroids. Alternatively, the lobular appearance along the left fundus may be ovarian in etiology (series 3 image [id number]. Bowel: The colon is decompressed. The cecum is located in the right upper quadrant. The appendix is not visualized. Significant distention of proximal small bowel is a diameter of over 3 cm. Dilated small bowel is primarily fluid containing. There is a smooth transition to slightly less dilated small bowel in the jejunum. Interloop fluid is evident within the mesenteric leaves. There is a focal transition point at the right femoral hernia. There is small amount of fluid within the hernia sac as well as the small bowel loop. Small bowel distal to to this site is completely decompressed. Peritoneal cavity: Trace free fluid within the leaves of the mesentery. No free intraperitoneal gas. Free fluid in the hernia sac as mentioned. Lymph nodes: No enlarged lymph nodes in the abdomen or pelvis. Vasculature: Atherosclerosis of the normal caliber abdominal aorta. IVC patent. There is mild compression of the traversing right common femoral vein along the right femoral hernia. Abdominal wall: No additional abdominal wall hernia identified. Musculoskeletal: Degenerative changes of the spine. IMPRESSION: 1. Complete small bowel obstruction with a transition point at the right femoral hernia. Complete decompression of distal small bowel and colon. Surgical consultation and decompression advised. 2. Indeterminate subcentimeter hypodense lesion in the right hepatic lobe, which is favored to represent a hemangioma. If there is a history of malignancy or hepatocellular risk factors, further evaluation with dedicated liver MRI would be recommended. The report will be called/faxed according to standard departmental protocol. Electronically signed by: Sina Oliver M.D. 05/15/2018 7:28 AM Medications Administered 4 L of lactated Ringer's have been administered prior to transfer to the intensive care unit. Postoperatively patient has received 1 g of IV Tylenol. She has received no other narcotics or analgesics in PACU. Patient also received 500 mL of 5% albumin Praveen-Synephrine drip has been stopped.
[2018-05-15] MEDS ORDERED: NOREPINEPHRINE BIT INJ 8 MG in DEXTROSE 5% 500 ML IV STA (17:36)
[2018-05-15] MEDS: NOREPINEPHRINE (Adult) 8 MG in DEXTROSE 5% 500 ML IV SCH (17:52)
[2018-05-15] MEDS ORDERED: ALBUMIN 5% 250 ML IV ONE (18:00)
--- NOTE | 2018-05-15 18:54 | Critical Care Consultation ---
Date of Consultation May 15, 2018 Assessment & Plan (1) Hypotension: Will start Nor-epenephrine at 0.1 mcg/kg/min If no improvement, will need central line Monitor in the ICU Follow-up blood cultures Continue fluid support with LR at 125ml/hr Follow urine output (2) Small bowel obstruction: Taken emergently to the operating theater by Dr. Mccall Patient had incarcerated right inguinal hernia * Required conversion from laparoscopic to open procedure Patient has small bowel obstruction * Removal of approximately 10 cm of bowel with good anastomosis Estimated blood loss 20 mL Soft blood pressures requiring norepinephrine A total of 4 L of lactated Ringer's were administered Transfer to intensive care unit for overnight monitoring (3) Incarcerated femoral hernia: See above for operative course Further management per Dr. Mccall and surgical team (4) CAD (coronary artery disease): Prior history of [place] * Cardiac catheterization with no stents and no CABG required * Patient reports that she developed good collaterals * Continue metoprolol, lisinopril, aspirin * Monitor on telemetry * EKG on arrival in ICU (5) Hypertension: Currently hypotensive postsurgically Continue lactated Ringer's Holding home metoprolol for now Monitor in ICU overnight Check EKG (6) Hyperlipidemia: Continue niacin and simvastatin when patient able to take oral meds (7) GERD (gastroesophageal reflux disease): Pantoprazole 40 mg IV daily May convert to p.o. when patient able to take meds by mouth (8) Tobacco use: Patient smokes 1-5 cigarettes daily Discuss complete abstention Palomo states that she is able to quit and is committed to do so Patient refusing NicoDerm patch at this time (9) COPD (chronic obstructive pulmonary disease): COPD is listed in the patient's history however patient denies ever having PFTs or following with pulmonology At this point patient is oxygenating well Discussed need for complete abstention of tobacco use We will continue to follow oxygenation status (10) DVT prophylaxis: SCD's and ISABEL hose Chemical prophylaxis per surgery History of Present Illness Attending Physician: Gabriel Mccall DO, FACS History of Present Illness Ms. Donovan is a 63-year-old female past medical history of coronary arterial disease with cardiac (no intervention), hypertension, hyperlipidemia, GERD, active smoker with possible COPD, who presented to the ED with complaints of abdominal pain times 4 days. Was found to have small bowel obstruction car serrated hernia. She underwent a laparoscopic hair, which turned into open repair with 10 cm of small bowel removed with good anastomosis. She became hypotensive, receiving 4.5 L of lactated Ringer and is requiring norepinephrine. Critical care consulted for medical management secondary to vasopressor requirements. Patient arrives to the ICU, hemodynamically stable on norepinephrine 0.1 and 4 L nasal cannula. She reports mild discomfort at surgical site. Laparoscopic entry sites are well approximated with Dermabond. Surgical sites gauze appear clean and approximated. Minimal swelling and bruising, abdomen tender with light palpation. Plan to remain in ICU until patient stabilizes and no longer requires vasopressors. Allergies Allergy/AdvReac Type Severity Reaction Status Date / Time tapentadol [From Nucynta] AdvReac Unknown Confusion Verified 05/15/18 06:44 Home Medications Home Medications Medication Instructions Recorded Confirmed Type aspirin 81 mg tablet,delayed 81 mg PO DAILY 01/13/18 05/15/18 History release atorvastatin 80 mg tablet 80 mg PO HS tab 01/13/18 05/15/18 History lisinopril 5 mg tablet 5 mg PO DAILY 01/13/18 05/15/18 History niacin 500 mg tablet 500 mg PO BID tab 01/13/18 05/15/18 History sucralfate 1 gram tablet 2 gm PO BID tab 01/13/18 05/15/18 History tramadol ER 200 mg tablet,extended 200 mg PO DAILY PRN 01/13/18 05/15/18 History release 24 hr metoprolol tartrate 25 mg PO BID 05/15/18 05/15/18 History pregabalin [Lyrica] 225 mg PO BID 05/15/18 05/15/18 History tramadol 50 mg PO Q6H PRN 05/15/18 05/15/18 History Patient History Medical History Epidural fibrosis (Chronic) left S1 nerve Tobacco use (Chronic) Obesity (Chronic) Osteoarthritis (Chronic) GERD (gastroesophageal reflux disease) (Chronic) Hyperlipidemia (Chronic) Hypertension (Chronic) Lumbar postlaminectomy syndrome (Chronic) Left lumbar radiculitis (Chronic) Myofascial pain (Chronic) Cervicalgia (Chronic) Cervical facet syndrome (Chronic) Cervical spinal stenosis (Chronic) C5-6 History of [place] (myocardial infarction) (Chronic) CAD (coronary artery disease) (Chronic) Cervical radiculitis (Resolved) Surgical History H/O heart artery stent (Resolved) History of PTCA (Resolved) History of bilateral tubal ligation (Resolved) History of carpal tunnel release (Resolved) History of cholecystectomy (Resolved) History of lumbar fusion (Resolved) Posterior decompression and instrumented fusion of L4-S1 03/19/2014 Dr. Montesinos History of mandibular surgery (Resolved) S/P lumbar laminectomy (Resolved 03/19/14) S/P total knee arthroplasty (Resolved) Right Social History Feels Safe at Home: Yes Smoking Status: Current every day smoker Cigarettes per Day: 1-01/24 PPd Preferred Language: Angolan Review of Systems Review of 12 systems negative except for those stated in HPI above. Physical Exam 2 Vital Signs (Past 24 Hours): Last Vital Signs Temp 37.7 C H 05/15/18 17:20 Pulse 104 H 05/15/18 18:00 Resp 20 05/15/18 18:00 BP 122/65 05/15/18 18:00 Pulse Ox 96 05/15/18 18:00 Constitutional: Patient appears comfortable and cooperative, oriented no acute distress. Neck: trachea midline, no thyromegaly Respiratory: normal respiratory effort, lungs clear to auscultation Cardiovascular: RRR, no murmur, no edema Heart Sounds: normal S1 and normal S2 Vessels: no JVD Extremities: normal capillary refill; no edema Gastrointestinal (Abdomen): Inspection/Auscultation: + hypoactive bowel sounds Percussion/Palpation: + abdomen tender Skin: no rashes, warm and dry Neurologic: Alert and oriented x3 Genitourinary: [place] catheter inserted Results & Data Laboratory Results Laboratory Results - last 24 hr 05/15/18 05/15/18 05/15/18 06:20 06:25 06:25 WBC 10.29 RBC 4.80 Hgb 15.8 POC Hgb Hct 46.0 POC Hct MCV 95.8 MCH 32.9 MCHC 34.3 RDW Std Deviation 48.1 H RDW Coeff of [place]re 13.8 Plt Count 150 MPV 10.8 H Immature Gran % (Auto) 0.3 Neut % (Auto) 77.2 Lymph % (Auto) 13.9 [place] % (Auto) 8.1 Eos % (Auto) 0.3 Baso % (Auto) 0.2 Immature Gran # (Auto) 0.03 H Neut # (Auto) 7.95 H Lymph # (Auto) 1.43 [place] # (Auto) 0.83 H Eos # (Auto) 0.03 Baso # (Auto) 0.02 POC Sodium Sodium 140 POC Potassium Potassium 3.4 L POC Chloride Chloride 101 Carbon Dioxide 31 POC Total CO2 Anion Gap 8.0 POC Anion Gap POC BUN BUN 11 Creatinine 0.86 POC Creatinine Est Cr Clr Drug Dosing 62.5 Est GFR ( Amer) 82.7 Est GFR (Non-Af Amer) 71.4 BUN/Creatinine Ratio 13.2 Glucose 109 H POC Glucose (other) Calcium 9.7 POC Ioniz Calcium [place] Total Bilirubin 0.7 AST 22 ALT 36 Alkaline Phosphatase 55 Troponin I Total Protein 7.1 Albumin 3.5 Globulin 3.6 Albumin/Globulin Ratio 1.0 Lipase 82 Urine Color Dark Yellow Urine Appearance Clear Urine pH 7.0 Ur Specific [place] 1.021 Urine Protein Negative Urine Glucose (UA) Negative Urine Ketones 2+ H Urine Blood Negative Urine Nitrite Negative Urine Bilirubin Negative Urine Urobilinogen Positive H Ur Leukocyte Esterase Negative 05/15/18 05/15/18 05/15/18 06:25 06:30 15:05 WBC RBC Hgb 16.4 H POC Hgb 15.3 Hct 49.8 H POC Hct 45 MCV MCH MCHC RDW Std Deviation RDW Coeff of [place] Plt Count MPV Immature Gran % (Auto) Neut % (Auto) Lymph % (Auto) [place] % (Auto) Eos % (Auto) Baso % (Auto) Immature Gran # (Auto) Neut # (Auto) Lymph # (Auto) [place] # (Auto) Eos # (Auto) Baso # (Auto) POC Sodium 140 Sodium POC Potassium 3.4 Potassium POC Chloride 97 L Chloride Carbon Dioxide POC Total CO2 31 Anion Gap POC Anion Gap 16.0 POC BUN 11 BUN Creatinine POC Creatinine 0.8 Est Cr Clr Drug Dosing Est GFR ( Amer) Est GFR (Non-Af Amer) BUN/Creatinine Ratio Glucose POC Glucose (other) 114 H Calcium POC Ioniz Calcium [place] 1.19 Total Bilirubin AST ALT Alkaline Phosphatase Troponin I < 0.015 Total Protein Albumin Globulin Albumin/Globulin Ratio Lipase Urine Color Urine Appearance Urine pH Ur Specific [place] Urine Protein Urine Glucose (UA) Urine Ketones Urine Blood Urine Nitrite Urine Bilirubin Urine Urobilinogen Ur Leukocyte Esterase 05/15/18 15:07 WBC RBC Hgb POC Hgb Hct POC Hct MCV MCH MCHC RDW Std Deviation RDW Coeff of [place] Plt Count MPV Immature Gran % (Auto) Neut % (Auto) Lymph % (Auto) [place] % (Auto) Eos % (Auto) Baso % (Auto) Immature Gran # (Auto) Neut # (Auto) Lymph # (Auto) [place] # (Auto) Eos # (Auto) Baso # (Auto) POC Sodium Sodium POC Potassium Potassium POC Chloride Chloride Carbon Dioxide POC Total CO2 Anion Gap POC Anion Gap POC BUN BUN Creatinine POC Creatinine Est Cr Clr Drug Dosing Est GFR ( Amer) Est GFR (Non-Af Amer) BUN/Creatinine Ratio Glucose POC Glucose (other) Calcium POC Ioniz Calcium [place] Total Bilirubin AST ALT Alkaline Phosphatase Troponin I < 0.015 Total Protein Albumin Globulin Albumin/Globulin Ratio Lipase Urine Color Urine Appearance Urine pH Ur Specific [place] Urine Protein Urine Glucose (UA) Urine Ketones Urine Blood Urine Nitrite Urine Bilirubin Urine Urobilinogen Ur Leukocyte Esterase Medications Administered Home Medications aspirin 81 mg tablet,delayed release 81 mg PO DAILY 01/13/18 [History Confirmed 05/15/18] atorvastatin 80 mg tablet 80 mg PO HS tab 01/13/18 [History Confirmed 05/15/18] lisinopril 5 mg tablet 5 mg PO DAILY 01/13/18 [History Confirmed 05/15/18] niacin 500 mg tablet 500 mg PO BID tab 01/13/18 [History Confirmed 05/15/18] sucralfate 1 gram tablet 2 gm PO BID tab 01/13/18 [History Confirmed 05/15/18] tramadol ER 200 mg tablet,extended release 24 hr 200 mg PO DAILY PRN 01/13/18 [ History Confirmed 05/15/18] metoprolol tartrate 25 mg PO BID 05/15/18 [History Confirmed 05/15/18] pregabalin [Lyrica] 225 mg PO BID 05/15/18 [History Confirmed 05/15/18] tramadol 50 mg PO Q6H PRN 05/15/18 [History Confirmed 05/15/18] Active Medications Hydromorphone HCl (Dilaudid) 1 mg IV Q3H PRN PRN Reason: Pain Stop: 05/29/18 18:13 Cefazolin Sodium (Ancef 2000mg) 2,000 mg in 15 mls @ 3.75 mls/min IV Q8H [facility]; Protocol Stop: 05/16/18 21:59 Lactated Ringer's (Lr) 1,000 mls @ 125 mls/hr IV .Q8H [facility] Stop: 06/14/18 13:44 Last Admin: 05/15/18 15:30 Dose: 125 mls/hr Norepinephrine Bitartrate 8 mg (/ Dextrose) 508 mls @ 29.71 mls/hr IV .Q17H6M [facility]; Protocol Stop: 06/14/18 17:44 Last Admin: 05/15/18 17:52 Dose: 0.1 mcg/kg/min, 30 mls/hr Pantoprazole Sodium 40 mg/ (Syringe) 10 mls @ 5 mls/min IV DAILY@1100 MARK Stop: 06/15/18 10:59 Ioversol (Optiray 320 100ml) 93 ml IV ONCE PRN PRN Reason: Interaction Checking Stop: 05/19/18 07:04 Last Admin: 05/15/18 07:08 Dose: 93 ml Ketorolac Tromethamine (Toradol) 30 mg IV Q6H [facility] Stop: 05/20/18 19:59 Metoprolol Tartrate (Lopressor) 25 mg PO BID [facility] Stop: 06/14/18 20:59 Ondansetron HCl (Zofran) 4 mg IV Q4H PRN PRN Reason: Nausea And Vomiting Stop: 06/14/18 13:40 Oxycodone/Acetaminophen (Percocet 5mg/325mg) 1 tab PO Q4H PRN PRN Reason: MODERATE Pain (Scale 4,5,6) Stop: 05/29/18 13:40 Oxycodone/Acetaminophen (Percocet 5mg/325mg) 2 tab PO Q4H PRN PRN Reason: SEVERE Pain (Scale 7,8,9,10) Stop: 05/29/18 13:40
[2018-05-15] MEDS: KETOROLAC 30 MG/ML VIAL IV SCH (19:16)
[2018-05-15] MEDS: HYDROmorphone INJ 1 MG/ML SYRINGE IV PRN (19:17)
--- NOTE | 2018-05-15 19:35 | XRay Report ---
XR chest 1V portable HISTORY: 63 years-old Female postop hypoxia and hypotension acute hypoxia with hypotension COMPARISON: CT abdomen and pelvis of same day, chest radiograph 02/28/2017 TECHNIQUE: Portable AP view of the chest FINDINGS: Endotracheal tube courses into the region of the gastric lumen with distal tip projected superiorly i n the region of the gastric fundus. Cardiac silhouette is upper limits of normal in size. No pneumoth orax or large pleural effusion. Patchy consolidative opacities are noted within the lung bases and ri ght upper lobe. Degenerative changes of the shoulders and spine with right shoulder rotator cuff calc ific tendinosis. Prior cholecystectomy. IMPRESSION: 1. Distal tip of enteric tube projects superiorly within the region of the gastric fundus. 2. Patchy bibasilar and right upper lobe airspace opacities suggest atelectasis or multifocal pneumon ia. The above report was generated using voice recognition software. It may contain grammatical, syntax o r spelling errors. Electronically signed by: Pranav Hay M.D. 05/15/2018 7:34 PM
[2018-05-15 19:39] LABS: BUN Creatinine Ratio 12.8 (10-20); Calcium 8.3 mg/dl (8.5-10.1); Creatinine Clr Calc Pharmacy 60.4 ml/min; Est GFR (African American) 79.4; Est GFR (Non-African American) 68.5; Magnesium 0.9 mg/dl (1.8-2.4); Phosphorus 2.5 mg/dl (2.5-4.9); Potassium 3.1 mmol/L (3.5-5.1)
[2018-05-15 19:42] LABS: Troponin I 0.019 ng/ml (0-0.045)
[2018-05-15] MEDS: MAGNESIUM SULFATE / D5W 1 GM/100 ML BAG IV SCH ×2 (20:02→20:42)
[2018-05-15 20:07] LABS: Hematocrit (blood only) 40.6 % (37-47); Hemoglobin 13.8 g/dL (12.0-16.0); Immature Granulocytes # (auto) 0.01 K/uL (0.00-0.02); Immature Granulocytes % (auto) 0.4 %; Lymphocytes # (auto) 0.19 K/uL (1.2-3.4); Lymphocytes % (auto) 7.1 %; Mean Corpuscular Volume 95.3 fL (80-100); Mean Platelet Volume 11.5 fL (7.4-10.4); Monocytes # (auto) 0.27 K/uL (0.11-0.59); Monocytes % (auto) 10.1 %; Neutrophils % (auto) 82.4 %; Platelet Count 105 K/uL (130-400); RDW Standard Deviation 47.9 fL (36.4-46.3); Red Blood Count 4.26 M/uL (4.2-5.4); White Blood Count 2.67 K/uL (4.8-10.8)
[2018-05-15] MEDS: POTASSIUM CHLORIDE / WTR 10 MEQ/100 ML PLCT IV SCH ×3 (21:12→23:27)
[2018-05-15] MEDS: METOPROLOL TARTRATE 25 MG TAB PO SCH (21:37)
[2018-05-15] MEDS: CEFAZOLIN 2000MG 2,000 MG/15 ML SYR IV SCH (22:11)
[2018-05-16] MEDS: POTASSIUM CHLORIDE / WTR 10 MEQ/100 ML PLCT IV SCH (00:39)
[2018-05-16] MEDS: KETOROLAC 30 MG/ML VIAL IV SCH ×4 (01:56→19:35)
[2018-05-16] MEDS: LACTATED RINGER'S 1,000 ML IV SCH ×3 (03:55→19:34)
[2018-05-16] MEDS: HYDROmorphone INJ 1 MG/ML SYRINGE IV PRN ×4 (03:55→20:10)
[2018-05-16 04:20] LABS: Basophils # (auto) 0.01 K/uL (0-0.2); Basophils % (auto) 0.2 %; Eosinophils # (auto) 0.02 K/uL (0-0.5); Eosinophils % (auto) 0.4 %; Hematocrit (blood only) 41.1 % (37-47); Hemoglobin 13.7 g/dL (12.0-16.0); Immature Granulocytes # (auto) 0.01 K/uL (0.00-0.02); Immature Granulocytes % (auto) 0.2 %; Lymphocytes # (auto) 0.61 K/uL (1.2-3.4); Mean Corpuscular Hgb Conc 33.3 g/dL (32-36); Mean Corpuscular Volume 96.7 fL (80-100); Mean Platelet Volume 11.2 fL (7.4-10.4); Monocytes # (auto) 0.44 K/uL (0.11-0.59); Monocytes % (auto) 9.4 %; Neutrophils # (auto) 3.61 K/uL (1.4-6.5); Neutrophils % (auto) 76.8 %; Platelet Count 108 K/uL (130-400); RDW Coefficient of Variation 14.2 % (11.5-14.5); RDW Standard Deviation 50.4 fL (36.4-46.3); Red Blood Count 4.25 M/uL (4.2-5.4)
[2018-05-16] MEDS: CEFAZOLIN 2000MG 2,000 MG/15 ML SYR IV SCH ×2 (05:13→14:33)
--- NOTE | 2018-05-16 08:30 | Anesthesiology Progress Note ---
Date of Service May 16, 2018 Anesthesia Post Procedure Vital Signs Vital Signs: Temp Pulse Pulse Pulse Resp BP BP 05/16/18 06:05 125 H 18 86/51 L 05/16/18 05:00 36.7 C 133 H 20 145/72 H 05/16/18 04:00 36.7 C 130 H 18 97/62 L 05/16/18 02:00 36.7 C 101 H 20 97/64 L 05/16/18 00:00 37.0 C 92 H 16 113/70 05/15/18 22:15 106 H 18 110/64 05/15/18 22:01 112 H 13 90/60 L 05/15/18 21:46 110 H 15 85/65 L 05/15/18 21:30 96 H 11 L 99/57 L 05/15/18 21:15 113 H 19 103/60 05/15/18 21:00 106 H 15 99/60 L 05/15/18 20:45 100 H 10 L 87/60 L 05/15/18 20:30 103 H 19 99/61 L 05/15/18 20:26 101 H 05/15/18 20:15 103 H 17 103/69 05/15/18 20:01 111 H 15 105/63 05/15/18 20:00 107 H 16 05/15/18 19:45 143 H 21 81/58 L 05/15/18 19:34 133 H 21 98/66 L 05/15/18 19:16 120 H 23 120/65 05/15/18 19:07 37.3 C 111 H 16 124/75 05/15/18 19:03 113 H 22 124/75 05/15/18 18:30 100 H 22 05/15/18 18:13 37.3 C 101 H 18 94/65 L 05/15/18 18:00 104 H 20 122/65 05/15/18 17:50 110 H 18 87/49 L 05/15/18 17:40 115 H 17 84/47 L 05/15/18 17:30 126 H 21 84/51 L 05/15/18 17:20 37.7 C H 127 H 20 87/54 L 05/15/18 17:10 123 H 22 91/51 L 05/15/18 17:00 123 H 21 91/49 L 05/15/18 16:50 128 H 21 96/58 L 05/15/18 16:40 37.4 C 126 H 23 96/54 L 05/15/18 16:30 134 H 23 86/57 L 05/15/18 16:20 127 H 20 95/58 L 05/15/18 16:10 113 H 22 108/63 05/15/18 16:00 112 H 22 102/63 05/15/18 15:50 108 H 22 104/66 05/15/18 15:40 109 H 22 105/70 05/15/18 15:30 102 H 20 101/64 05/15/18 15:20 100 H 19 106/65 05/15/18 15:10 103 H 21 97/64 L 05/15/18 15:00 105 H 22 104/62 05/15/18 14:55 103 H 22 101/66 05/15/18 14:50 110 H 22 85/58 L 05/15/18 14:40 112 H 24 91/62 L 05/15/18 14:30 104 H 21 85/58 L 05/15/18 14:20 104 H 22 89/59 L 05/15/18 14:10 98 H 22 99/59 L 05/15/18 14:00 95 H 24 91/59 L 05/15/18 13:50 85 21 99/56 L 05/15/18 13:43 36.6 C 90 17 71/53 L 05/15/18 10:56 37.4 C 68 16 128/74 05/15/18 10:50 20 108/69 05/15/18 10:03 72 20 109/66 Pulse Ox 05/16/18 06:05 95 05/16/18 05:00 95 05/16/18 04:00 95 05/16/18 02:00 98 05/16/18 00:00 98 05/15/18 22:15 96 05/15/18 22:01 96 05/15/18 21:46 95 05/15/18 21:30 95 05/15/18 21:15 94 05/15/18 21:00 94 05/15/18 20:45 94 05/15/18 20:30 95 05/15/18 20:26 05/15/18 20:15 93 05/15/18 20:01 94 05/15/18 20:00 94 05/15/18 19:45 93 05/15/18 19:34 94 05/15/18 19:16 93 05/15/18 19:07 94 05/15/18 19:03 95 05/15/18 18:30 95 05/15/18 18:13 94 05/15/18 18:00 96 05/15/18 17:50 95 05/15/18 17:40 94 05/15/18 17:30 93 05/15/18 17:20 93 05/15/18 17:10 93 05/15/18 17:00 94 05/15/18 16:50 94 05/15/18 16:40 92 05/15/18 16:30 92 05/15/18 16:20 93 05/15/18 16:10 97 05/15/18 16:00 95 05/15/18 15:50 95 05/15/18 15:40 97 05/15/18 15:30 97 05/15/18 15:20 98 05/15/18 15:10 98 05/15/18 15:00 99 05/15/18 14:55 98 05/15/18 14:50 97 05/15/18 14:40 97 05/15/18 14:30 97 05/15/18 14:20 96 05/15/18 14:10 99 05/15/18 14:00 99 05/15/18 13:50 99 05/15/18 13:43 100 05/15/18 10:56 92 05/15/18 10:50 94 05/15/18 10:03 90 Pain Intensity Abdomen: Pain Intensity: 3 Neck: Pain Intensity: 6 Notes Mental Status: alert / awake / arousable and participated in evaluation Patient Amnestic to Procedure: Yes Nausea / Vomiting: adequately controlled Pain: adequately controlled Airway Patency, RR, SpO2: stable & adequate BP & HR: stable & adequate Hydration State: stable & adequate Anesthetic Complications: no major complications apparent and Pt Satisfied with anesthetic care
[2018-05-16] MEDS: METOPROLOL TARTRATE 25 MG TAB PO SCH (09:06)
[2018-05-16 09:23] LABS: BUN Creatinine Ratio 11.1 (10-20); Calcium 8.5 mg/dl (8.5-10.1); Creatinine Clr Calc Pharmacy 45.5 ml/min; Est GFR (African American) 56.4; Est GFR (Non-African American) 48.7; Magnesium 1.7 mg/dl (1.8-2.4); Potassium 4.6 mmol/L (3.5-5.1)
[2018-05-16 09:27] LABS: Phosphorus 4.5 mg/dl (2.5-4.9)
[2018-05-16] MEDS ORDERED: MAGNESIUM SULFATE / D5W 1 GM/100 ML BAG IV SCH (10:30)
[2018-05-16] MEDS: PANTOprazole 40 MG in SYRINGE 0 ML IV SCH (10:33)
--- NOTE | 2018-05-16 10:53 | Surgery Progress Note ---
Date of Service May 16, 2018 Assessment & Plan (1) Complicated unilateral incarcerated femoral hernia: POD #1 small bowel resection and preperitoneal femoral hernia repair for strangulated femoral hernia with complete obstruction. Overall she appears to be doing well, Levophed is being titrated off. This appears to be combination of preoperative dehydration and SIRS. Continue NG tube until return of bowel function Broaden antibiotics, discussed with ICU team Ice chips okay Continue to wean Levophed as tolerated Out of bed to chair and ambulate once off pressors Plan of care discussed with the patient and ICU team, all questions were answered, patient agrees the plan of care as stated Dr. Flores from [facility] surgery will be covering over the weekend Present on Admission?: Yes Subjective 63-year-old female POD #1 diagnostic laparoscopy, open small bowel resection for ischemic bowel, and open femoral hernia repair for strangulated femoral hernia with complete bowel obstruction and strangulation. She was transferred to the ICU postoperatively secondary to hypotension. She is currently being weaned off of pressors. This appears to be more of a septic picture. Overall she is feeling well, she has some discomfort in her abdomen, and has not passed gas or had a bowel movement. Physical Exam 2 Vital Signs (Past 24 Hours): Last Vital Signs Temp 37.1 C 05/16/18 08:00 Pulse 116 H 05/16/18 10:31 Resp 26 H 05/16/18 10:31 BP 91/56 L 05/16/18 10:30 Pulse Ox 95 05/16/18 10:31 Constitutional: WD/WN, vitals as above no acute distress Respiratory: normal respiratory effort, lungs clear to auscultation Cardiovascular: Tachycardia, mild hypotension, on Levophed Gastrointestinal (Abdomen): Incisions with dressings in place, some stressing of strike through the right groin incision. Abdomen appropriately tender to palpation, no guarding or rebound. Results & Data Laboratory Results Laboratory Results - last 24 hr 05/15/18 05/15/18 05/15/18 15:05 15:07 18:30 WBC 2.67 L D RBC 4.26 Hgb 16.4 H 13.8 Hct 49.8 H 40.6 MCV 95.3 MCH 32.4 MCHC 34.0 RDW Std Deviation 47.9 H RDW Coeff of [place] 14.0 Plt Count 105 L MPV 11.5 H Immature Gran % (Auto) 0.4 Neut % (Auto) 82.4 Lymph % (Auto) 7.1 [place] % (Auto) 10.1 Eos % (Auto) 0.0 Baso % (Auto) 0.0 Immature Gran # (Auto) 0.01 Neut # (Auto) 2.20 Lymph # (Auto) 0.19 L [place] # (Auto) 0.27 Eos # (Auto) 0.00 Baso # (Auto) 0.00 Sodium Potassium Chloride Carbon Dioxide Anion Gap BUN Creatinine Est Cr Clr Drug Dosing Est GFR ( Amer) Est GFR (Non-Af Amer) BUN/Creatinine Ratio Glucose Calcium Phosphorus Magnesium Total Creatine Kinase CK-MB (CK-2) CK/CKMB % Calc Troponin I < 0.015 Procalcitonin Nasal Screen MRSA (PCR) Hepatitis C Ab Screen 05/15/18 05/15/18 05/15/18 18:30 18:30 18:30 WBC RBC Hgb Hct MCV MCH MCHC RDW Std Deviation RDW Coeff of [place] Plt Count MPV Immature Gran % (Auto) Neut % (Auto) Lymph % (Auto) [place] % (Auto) Eos % (Auto) Baso % (Auto) Immature Gran # (Auto) Neut # (Auto) Lymph # (Auto) [place] # (Auto) Eos # (Auto) Baso # (Auto) Sodium 141 Potassium 3.1 L Chloride 107 Carbon Dioxide 28 Anion Gap 6.0 BUN 11 Creatinine 0.89 Est Cr Clr Drug Dosing 60.4 Est GFR ( Amer) 79.4 Est GFR (Non-Af Amer) 68.5 BUN/Creatinine Ratio 12.8 Glucose 129 H Calcium 8.3 L Phosphorus 2.5 Magnesium 0.9 L* Total Creatine Kinase 84 CK-MB (CK-2) 1.0 CK/CKMB % Calc 1.2 Troponin I 0.019 Procalcitonin 23.08 H Nasal Screen MRSA (PCR) Hepatitis C Ab Screen 05/15/18 05/16/18 05/16/18 18:30 03:46 03:46 WBC 4.70 L RBC 4.25 Hgb 13.7 Hct 41.1 MCV 96.7 MCH 32.2 MCHC 33.3 RDW Std Deviation 50.4 H RDW Coeff of [place] 14.2 Plt Count 108 L MPV 11.2 H Immature Gran % (Auto) 0.2 Neut % (Auto) 76.8 Lymph % (Auto) 13.0 [place] % (Auto) 9.4 Eos % (Auto) 0.4 Baso % (Auto) 0.2 Immature Gran # (Auto) 0.01 Neut # (Auto) 3.61 Lymph # (Auto) 0.61 L [place] # (Auto) 0.44 Eos # (Auto) 0.02 Baso # (Auto) 0.01 Sodium Potassium Chloride Carbon Dioxide Anion Gap BUN Creatinine Est Cr Clr Drug Dosing Est GFR ( Amer) Est GFR (Non-Af Amer) BUN/Creatinine Ratio Glucose Calcium Phosphorus Magnesium Total Creatine Kinase CK-MB (CK-2) CK/CKMB % Calc Troponin I Procalcitonin Nasal Screen MRSA (PCR) Negative Hepatitis C Ab Screen Neg 05/16/18 03:46 WBC RBC Hgb Hct MCV MCH MCHC RDW Std Deviation RDW Coeff of [place] Plt Count MPV Immature Gran % (Auto) Neut % (Auto) Lymph % (Auto) [place] % (Auto) Eos % (Auto) Baso % (Auto) Immature Gran # (Auto) Neut # (Auto) Lymph # (Auto) [place] # (Auto) Eos # (Auto) Baso # (Auto) Sodium 140 Potassium 4.6 D Chloride 104 Carbon Dioxide 31 Anion Gap 5.0 BUN 13 Creatinine 1.18 Est Cr Clr Drug Dosing 45.5 Est GFR ( Amer) 56.4 Est GFR (Non-Af Amer) 48.7 BUN/Creatinine Ratio 11.1 Glucose 98 Calcium 8.5 Phosphorus 4.5 D Magnesium 1.7 L Total Creatine Kinase CK-MB (CK-2) CK/CKMB % Calc Troponin I Procalcitonin Nasal Screen MRSA (PCR) Hepatitis C Ab Screen
--- NOTE | 2018-05-16 12:26 | Critical Care Progress Note ---
Date of Service May 16, 2018 Assessment & Plan (1) Hypotension: Impression: 1. Right inguinal hernia, incarcerated, status post open surgical repair. 2. COPD, gold level cannot be determined. 3. Sepsis versus right-sided failure, I do not have previous echo done on her in the past. Plan: 1. I will support the blood pressure with albumin infusion for the next 24 hours. 2. Continue with norepinephrine drip. 3. Watch for dilutional acidosis. 4. Bronchodilators. 5. Pain control. 6. Appreciate surgical input. 7. Continue broad-spectrum antibiotics. 8. The patient has been on prednisone recently and I would add hydrocortisone stress dose. 9. Hold beta-blockers. 10. Continue PPI for GI prophylaxis as well as DVT prophylaxis. 11. Discussed with the staff on rounds and details. Discussed with the family at the bedside, critical care time spent with the patient was 45 minutes. Subjective The patient is postop day 1, remains hypotensive requiring pressors, she is following commands and answering questions, she is bothered only by the NG tube , minimal pain postop which is expected, no nausea, otherwise appears comfortable, answering questions and following commands. No events overnight. Physical Exam 2 Vital Signs (Past 24 Hours): Last Vital Signs Temp 37.0 C 05/16/18 12:00 Pulse 115 H 05/16/18 12:00 Resp 20 05/16/18 12:00 BP 86/48 L 05/16/18 12:00 Pulse Ox 93 05/16/18 12:00 Physical Exam: Vital signs are stable, no fever, blood pressure is borderline with the support of norepinephrine, she is 93% on 2 L nasal cannula. Results & Data Laboratory Results Labs were reviewed which showed stable CBC, and BMP. Slight elevation in BUN/ creatinine. Magnesium is 1.7. Pro-calcitonin is 23. Diagnostic Findings CAT scan of the abdomen was reviewed which showed dilated bowel loop as well as incarcerated right groin hernia. Chest x-ray with hyperinflated lungs only and bibasilar atelectasis.
[2018-05-16] MEDS: NOREPINEPHRINE (Adult) 8 MG in DEXTROSE 5% 500 ML IV SCH (13:12)
[2018-05-16 13:42] LABS: INR 1.4 (0.9-1.1); Partial Thromboplastin Ratio 1.2; Partial Thromboplastin Time 31.9 Seconds (21.0-31.0)
[2018-05-16] MEDS: HYDROCORTISONE SOD 50 MG in SYRINGE 0 ML IV SCH ×2 (14:33→21:12)
[2018-05-16] MEDS: ALBUMIN 5% 250 ML IV SCH ×2 (14:34→18:43)
--- NOTE | 2018-05-16 17:42 | Hospitalist Progress Note ---
Date of Service May 16, 2018 Assessment & Plan (1) Complicated unilateral incarcerated femoral hernia: s/p open laparotomy with Small Bowel Resection, Repair of Strangulated Hernia on right. POD #1. management per surgery. course complicated by shock and significant electrolyte disturbances - see below. NPO, NG tube, IV fluids. Present on Admission?: Yes (2) Shock: septic and/or hypovolemic and/or addisonian (was on steroids recently). no evidence of cardiogenic shock. cont levophed; wean as tolerated. cont fluids although she appears to have JVD and echo in 02/2017 showed low- normal EF of 50-55% with multiple wall motion abnormalities & grade 1 diastolic dysfunction - caution with fluids. agree with stress dose steroids. in light of intra-abdominal process and very high calcitonin levels - add zosyn or imipenem? defer to critical care team. Present on Admission?: Yes (3) COPD (chronic obstructive pulmonary disease): not in exacerbation at this time. incentive elsa. nebs prn. (4) Small bowel obstruction: 2nd to incarcerated right-sided femoral hernia. s/p open laparotomy with 10cm of small bowel resected. NG tube, etc - defer to general surgery. (5) Tobacco use: nicoderm patch if desired. counseled to quit. (6) GERD (gastroesophageal reflux disease): 2013 EGD w/ gastritis. takes PPI on prn basis at home. IV PPI while here. (7) Hypertension: holding home meds. (8) CAD (coronary artery disease): repeat echo to check EF and wall motion. fortunately trops are negative. no ischemic symptoms at this time. (9) Hypomagnesemia: etiology?? not on diuretics. was not having diarrhea prior to admission. wasn't taking her PPI regularly. does not drink etoh. either way aggressively replaced and now normal. repeat mag level AM. (10) Hypokalemia: replaced, now normal. (11) Chronic diastolic (congestive) heart failure: recheck echo tomorrow. mild JVD present on exam; caution with ongoing fluids. (12) DVT prophylaxis: heparin. Subjective patient resting comfortably in bed no passage of flatus NG tube in place - bile present in tube no dyspnea patient denies use of etoh at home patient states she suffers from "gastritis" and takes PPI prn no recent diarrhea still requiring levophed for BP support Respiratory: no cough and no dyspnea Cardiovascular: no chest pain Gastrointestinal: + abdominal pain; no nausea and no vomiting Physical Exam 2 Vital Signs (Past 24 Hours): Last Vital Signs Temp 37.2 C 05/16/18 16:00 Pulse 104 H 05/16/18 16:01 Resp 16 05/16/18 16:01 BP 93/55 L 05/16/18 16:00 Pulse Ox 95 05/16/18 16:01 Constitutional: + ill appearing; no acute distress ENMT: Mouth: + oral mucosal abnormality (dry MM) Respiratory: Auscultation: + diminished lung sounds (both bases) Cardiovascular: Rate/Rhythm: regular rhythm and + tachycardic Heart Sounds : normal S1 and normal S2 Vessels: + JVD and dorsalis pedis pulses present Extremities: normal capillary refill and + pedal edema (trace) Gastrointestinal (Abdomen): Inspection/Auscultation: + abdomen distended; + abnormal bowel sounds (significantly diminished) Percussion/Palpation: + abdomen tender (incisions); no guarding, abdomen not rigid and no hepatosplenomegaly Psychiatric: A+Ox3, euthymic affect Results & Data Laboratory Results Laboratory Results - last 24 hr 05/15/18 05/15/18 05/15/18 18:30 18:30 18:30 WBC 2.67 L D RBC 4.26 Hgb 13.8 Hct 40.6 MCV 95.3 MCH 32.4 MCHC 34.0 RDW Std Deviation 47.9 H RDW Coeff of [place] 14.0 Plt Count 105 L MPV 11.5 H Immature Gran % (Auto) 0.4 Neut % (Auto) 82.4 Lymph % (Auto) 7.1 [place] % (Auto) 10.1 Eos % (Auto) 0.0 Baso % (Auto) 0.0 Immature Gran # (Auto) 0.01 Neut # (Auto) 2.20 Lymph # (Auto) 0.19 L [place] # (Auto) 0.27 Eos # (Auto) 0.00 Baso # (Auto) 0.00 PT INR APTT PTT Ratio Sodium 141 Potassium 3.1 L Chloride 107 Carbon Dioxide 28 Anion Gap 6.0 BUN 11 Creatinine 0.89 Est Cr Clr Drug Dosing 60.4 Est GFR ( Amer) 79.4 Est GFR (Non-Af Amer) 68.5 BUN/Creatinine Ratio 12.8 Glucose 129 H Calcium 8.3 L Phosphorus 2.5 Magnesium 0.9 L* Total Creatine Kinase CK-MB (CK-2) CK/CKMB % Calc Troponin I Procalcitonin 23.08 H Nasal Screen MRSA (PCR) Hepatitis C Ab Screen 05/15/18 05/15/18 05/16/18 18:30 18:30 03:46 WBC RBC Hgb Hct MCV MCH MCHC RDW Std Deviation RDW Coeff of [place] Plt Count MPV Immature Gran % (Auto) Neut % (Auto) Lymph % (Auto) [place] % (Auto) Eos % (Auto) Baso % (Auto) Immature Gran # (Auto) Neut # (Auto) Lymph # (Auto) [place] # (Auto) Eos # (Auto) Baso # (Auto) PT INR APTT PTT Ratio Sodium Potassium Chloride Carbon Dioxide Anion Gap BUN Creatinine Est Cr Clr Drug Dosing Est GFR ( Amer) Est GFR (Non-Af Amer) BUN/Creatinine Ratio Glucose Calcium Phosphorus Magnesium Total Creatine Kinase 84 CK-MB (CK-2) 1.0 CK/CKMB % Calc 1.2 Troponin I 0.019 Procalcitonin Nasal Screen MRSA (PCR) Negative Hepatitis C Ab Screen Neg 05/16/18 05/16/18 05/16/18 03:46 03:46 13:04 WBC 4.70 L RBC 4.25 Hgb 13.7 Hct 41.1 MCV 96.7 MCH 32.2 MCHC 33.3 RDW Std Deviation 50.4 H RDW Coeff of [place] 14.2 Plt Count 108 L MPV 11.2 H Immature Gran % (Auto) 0.2 Neut % (Auto) 76.8 Lymph % (Auto) 13.0 [place] % (Auto) 9.4 Eos % (Auto) 0.4 Baso % (Auto) 0.2 Immature Gran # (Auto) 0.01 Neut # (Auto) 3.61 Lymph # (Auto) 0.61 L [place] # (Auto) 0.44 Eos # (Auto) 0.02 Baso # (Auto) 0.01 PT 14.0 H INR 1.4 H APTT 31.9 H PTT Ratio 1.2 Sodium 140 Potassium 4.6 D Chloride 104 Carbon Dioxide 31 Anion Gap 5.0 BUN 13 Creatinine 1.18 Est Cr Clr Drug Dosing 45.5 Est GFR ( Amer) 56.4 Est GFR (Non-Af Amer) 48.7 BUN/Creatinine Ratio 11.1 Glucose 98 Calcium 8.5 Phosphorus 4.5 D Magnesium 1.7 L Total Creatine Kinase CK-MB (CK-2) CK/CKMB % Calc Troponin I Procalcitonin Nasal Screen MRSA (PCR) Hepatitis C Ab Screen _ (1) COPD (chronic obstructive pulmonary disease) COPD type: unspecified COPD Qualified Code(s): J44.9 - Chronic obstructive pulmonary disease, unspecified (2) GERD (gastroesophageal reflux disease) Esophagitis presence: without esophagitis Qualified Code(s): K21.9 - Gastro- esophageal reflux disease without esophagitis (3) Hypertension Hypertension type: essential hypertension Qualified Code(s): I10 - Essential (primary) hypertension (4) CAD (coronary artery disease) Coronary Disease-Associated Artery/Lesion type: [place] artery [place] vs. transplanted heart: [place] heart Associated angina: without angina Qualified Code(s): I25.10 - Atherosclerotic heart disease of [place] coronary artery without angina pectoris
[2018-05-16] MEDS: NICOTINE 14 MG/24 HR PATCH TD SCH (18:42)
[2018-05-16] MEDS: HEPARIN SOD 5,000 UNIT/0.5 ML VIAL SQ SCH (21:10)
[2018-05-17] MEDS: ALBUMIN 5% 250 ML IV SCH ×2 (00:14→06:19)
[2018-05-17] MEDS: HYDROmorphone INJ 1 MG/ML SYRINGE IV PRN ×5 (01:16→21:08)
[2018-05-17] MEDS: KETOROLAC 30 MG/ML VIAL IV SCH ×2 (01:16→08:06)
[2018-05-17 04:40] LABS: Hematocrit (blood only) 33.2 % (37-47); Hemoglobin 10.9 g/dL (12.0-16.0); Mean Corpuscular Hgb Conc 32.8 g/dL (32-36); Mean Corpuscular Volume 96.8 fL (80-100); RDW Standard Deviation 49.6 fL (36.4-46.3); Red Blood Count 3.43 M/uL (4.2-5.4)
[2018-05-17 04:58] LABS: BUN Creatinine Ratio 19.5 (10-20); Creatinine Clr Calc Pharmacy 70.7 ml/min; Est GFR (African American) 96.1; Est GFR (Non-African American) 82.9; Magnesium 1.8 mg/dl (1.8-2.4); Phosphorus 3.3 mg/dl (2.5-4.9); Potassium 4.5 mmol/L (3.5-5.1)
[2018-05-17] MEDS: HYDROCORTISONE SOD 50 MG in SYRINGE 0 ML IV SCH ×3 (05:26→20:41)
[2018-05-17 05:39] LABS: ALC (manual) 0.33 K/uL (1.2-3.4); Echinocytes 1+; Lymphocytes # (manual) 0.33 K/uL (1.2-3.4); Lymphocytes % (manual) 8.7 %; Mean Platelet Volume 11.3 fL (7.4-10.4); Metamyelocytes # (manual) 0.13 K/uL (0-0); Metamyelocytes % (manual) 3.5 %; Monocytes % (manual) 5.2 %; Neutrophils % (manual) 82.6 %; Platelet Count 70 K/uL (130-400); Platelet Estimate Decreased (Normal)
[2018-05-17] MEDS: LACTATED RINGER'S 1,000 ML IV SCH ×2 (06:18→16:39)
[2018-05-17] MEDS ORDERED: PERFLUTREN LIPID MICROSPHERE (DEFINITY) IV ONE (07:01)
--- NOTE | 2018-05-17 07:47 | XRay Report ---
XR chest 1V portable HISTORY: 63 years-old Female f/u ??PNA acute shortness of breath with possible pneumonia COMPARISON: Chest radiograph and CT abdomen and pelvis 05/15/2018 TECHNIQUE: Portable AP view of the chest FINDINGS: Cardiac mediastinal and hilar silhouettes appear unchanged. Enteric tube is noted coiling within the region of the gastric lumen, distal tip projected superiorly near the gastric cardia. There is an add itional tube which projects over the midline and coils of the right hemithorax, also the external to the patient. Patchy bilateral airspace opacities are redemonstrated without pneumothorax or pleural e ffusion. No overt pulmonary edema. Right shoulder rotator cuff calcific tendinosis. Degenerative holman ges of the shoulders and spine. IMPRESSION: Multifocal mixed interstitial and alveolar opacities redemonstrated suggesting multifocal atelectasis/scarring versus multifocal pneumonia. The above report was generated using voice recognition software. It may contain grammatical, syntax o r spelling errors. Electronically signed by: Pranav Hay M.D. 05/17/2018 7:45 AM
[2018-05-17] MEDS: NICOTINE 14 MG/24 HR PATCH TD SCH (08:06)
--- NOTE | 2018-05-17 09:07 | Surgery Progress Note ---
Date of Service May 17, 2018 pt is doing better, no abdominal pain, no nausea, no vomiting, Assessment & Plan (1) Incarcerated femoral hernia: pt is doing better, no abdominal pain continue treatment will F/U Physical Exam 2 Vital Signs (Past 24 Hours): Last Vital Signs Temp 36.7 C 05/17/18 06:00 Pulse 91 H 05/17/18 06:01 Resp 11 L 05/17/18 06:01 BP 108/63 05/17/18 06:00 Pulse Ox 92 05/17/18 06:01 Constitutional: WD/WN, vitals as above Neck: trachea midline, no thyromegaly Respiratory: normal respiratory effort, lungs clear to auscultation Cardiovascular: RRR, no murmur, no edema Gastrointestinal (Abdomen): Percussion/Palpation: abdomen soft NT, ND, BS + Neurologic: awake Psychiatric: Orientation: alert and oriented x 3 Results & Data Laboratory Results Abnormal lab results 05/16/18 05/16/18 05/17/18 Range/Units 03:46 13:04 04:14 WBC 3.80 L (4.8-10.8) K/uL RBC 3.43 L (4.2-5.4) M/uL Hgb 10.9 L (12.0-16.0) g/dL Hct 33.2 L (37-47) % RDW Std Deviation 49.6 H (36.4-46.3) fL Plt Count 70 L (130-400) K/uL MPV 11.3 H (7.4-10.4) fL Lymphocytes # (Manual) 0.33 L (1.2-3.4) K/uL Total Abs Lymphocytes 0.33 L (1.2-3.4) K/uL Metamyelocytes # (Man) 0.13 H (0-0) K/uL PT 14.0 H (9.0-12.0) Seconds INR 1.4 H (0.9-1.1) APTT 31.9 H (21.0-31.0) Seconds Chloride (98-107) mmol/L Calcium (8.5-10.1) mg/dl Magnesium 1.7 L (1.8-2.4) mg/dl 05/17/18 Range/Units 04:14 WBC (4.8-10.8) K/uL RBC (4.2-5.4) M/uL Hgb (12.0-16.0) g/dL Hct (37-47) % RDW Std Deviation (36.4-46.3) fL Plt Count (130-400) K/uL MPV (7.4-10.4) fL Lymphocytes # (Manual) (1.2-3.4) K/uL Total Abs Lymphocytes (1.2-3.4) K/uL Metamyelocytes # (Man) (0-0) K/uL PT (9.0-12.0) Seconds INR (0.9-1.1) APTT (21.0-31.0) Seconds Chloride 109 H (98-107) mmol/L Calcium 8.0 L (8.5-10.1) mg/dl Magnesium (1.8-2.4) mg/dl
[2018-05-17] MEDS: HEPARIN SOD 5,000 UNIT/0.5 ML VIAL SQ SCH ×2 (09:59→20:41)
[2018-05-17] MEDS: PANTOprazole 40 MG in SYRINGE 0 ML IV SCH (09:59)
[2018-05-17] MEDS: ALBUT/IPRATROP 3MG/0.5MG NEB 3 ML VIAL NEB SCH ×3 (10:54→18:51)
--- NOTE | 2018-05-17 13:31 | Critical Care Progress Note ---
Date of Service May 17, 2018 Assessment & Plan (1) Hypotension: Impression: 1. Right inguinal hernia, incarcerated, status post open surgical repair. 2. COPD, gold level cannot be determined. 3. Sepsis versus right-sided failure, I do not have previous echo done on her in the past. Plan: 1. Stop albumin infusion after 4 doses. 2. Discontinue norepinephrine. 3. The patient is auto diuresing, if not may apply forced diuresis. 4. Bronchodilators. 5. Pain control. 6. Appreciate surgical input. 7. Antibiotic can be downgraded to ceftriaxone however I would continue for 7 days total. 8. Continue hydrocortisone 50 mg IV every 8. 9. Hold beta-blockers. 10. Continue PPI for GI prophylaxis as well as DVT prophylaxis. 11. Out of bed to a chair. 12. Appreciate Dr. Lion acceptance of this case to the regular floor. 13. I would use Dilaudid as needed only. 14. Discussed with the staff on rounds and details. critical care time spent with the patient was 35 minutes. Subjective Clinically improving, she is off the Levophed, she is sitting in the chair, somewhat somnolent probably from the medications. Denies any chest pain or shortness of breath, no nausea, no vomiting, abdominal pain which is expected postop. No increased swelling in her lower extremities but she does have edema in the upper and the back. No events overnight. Physical Exam 2 Vital Signs (Past 24 Hours): Last Vital Signs Temp 36.8 C 05/17/18 08:00 Pulse 100 H 05/17/18 10:55 Resp 18 05/17/18 10:55 BP 115/77 05/17/18 10:00 Pulse Ox 95 05/17/18 10:55 Physical Exam: Vital signs are stable, S1-S2 regular rate and rhythm, crackles mainly at the bases, abdomen is postop, trace edema in the periphery. Neurologically she is somnolent but following commands answering questions and nonfocal. No rash, NG tube in place. No irritation in the nasal area. Results & Data Laboratory Results Her labs noted for drop in her WBC, RBC and platelets, this is likely dilutional. CO2 has been maintained and BUN/creatinine 15 and 0.7. She is diuresing on her own. Diagnostic Findings Chest x-ray showed bilateral pulmonary edema with pulmonary vascular congestion. Bibasilar infiltrates representing atelectasis.
[2018-05-17] MEDS: KETOROLAC TROMETHAMINE 15 MG/ML VIAL IV SCH ×2 (14:19→20:40)
--- NOTE | 2018-05-17 17:03 | Hospitalist Progress Note ---
Date of Service May 17, 2018 Assessment & Plan (1) Complicated unilateral incarcerated femoral hernia: s/p open laparotomy with Small Bowel Resection, Repair of Strangulated Hernia on right. POD #2. management per surgery. course complicated by shock and significant electrolyte disturbances - resolved. NPO, NG tube, IV fluids (judicious). (2) Shock: septic and/or hypovolemic and/or addisonian (was on steroids recently). no evidence of cardiogenic shock. resolved. cont fluids and stress dose steroids; likely cut steroids to 25mg IV q8h tomorrow. due to appearance of chest x-ray and her lung exam caution with IVF. if any pulmonary worsening then stop fluids and give diuretics. (3) COPD (chronic obstructive pulmonary disease): not in exacerbation at this time. incentive elsa. nebs prn. (4) Small bowel obstruction: 2nd to incarcerated right-sided femoral hernia. s/p open laparotomy with 10cm of small bowel resected. NG tube, etc - defer to general surgery. (5) Tobacco use: nicoderm patch if desired. counseled to quit. (6) GERD (gastroesophageal reflux disease): 2014 EGD w/ gastritis. takes PPI on prn basis at home. IV PPI while here. (7) Hypertension: holding home meds due to recent shock. (8) CAD (coronary artery disease): repeat echo with unchanged EF and unchanged wall motion. (9) Hypomagnesemia: etiology?? not on diuretics. was not having diarrhea prior to admission. wasn't taking her PPI regularly. does not drink etoh. either way aggressively replaced and now normal. repeat mag level today wnl. (10) Hypokalemia: resolved. K normal today. (11) Chronic diastolic (congestive) heart failure: likely early acute/chronic diastolic CHF. caution with ongoing use of lactated ringers. if any worsening in pulmonary status stop fluids and diurese. (12) Leukopenia: etiology? sepsis induced? other? check b12/folate in am. check cbc in am. (13) Thrombocytopenia: etiology? sepsis induced? other? check b12/folate in am to be complete. caution with heparin use; too early, however, for HIT. check cbc in am. (14) DVT prophylaxis: heparin. spoke with Dr. Gonzales - patient to be transferred to PCU today. Subjective patient feels "ok" reports chest congestion and dyspnea at times minimal abdominal pain today no nausea or emesis NG tube in place draining bile no passage of flatus no chest pain tele stable overnight off levophed Constitutional: no fever Respiratory: + cough, + chest congestion and + dyspnea; no dyspnea on exertion Cardiovascular: no chest pain Gastrointestinal: + abdominal pain; no nausea and no vomiting Physical Exam 2 Vital Signs (Past 24 Hours): Last Vital Signs Temp 37.4 C 05/17/18 15:35 Pulse 111 H 05/17/18 15:35 Resp 20 05/17/18 15:35 BP 108/63 05/17/18 15:35 Pulse Ox 100 05/17/18 15:35 Constitutional: + ill appearing; no acute distress ENMT: Mouth: + oral mucosal abnormality (dry MM) Respiratory: Auscultation: + diminished lung sounds (both bases) and + rales ( bases) Cardiovascular: Rate/Rhythm: regular rhythm and + tachycardic Heart Sounds : normal S1 and normal S2 Vessels: + JVD and dorsalis pedis pulses present Extremities: normal capillary refill and + edema (extending to the thighs) Gastrointestinal (Abdomen): Inspection/Auscultation: + abdomen distended; + abnormal bowel sounds (significantly diminished) Percussion/Palpation: + abdomen tender (incisions); no guarding, abdomen not rigid and no hepatosplenomegaly abdominal wall edema Skin: dressings in place - abdominal wall Psychiatric: A+Ox3, euthymic affect Results & Data Laboratory Results Laboratory Results - last 24 hr 05/17/18 05/17/18 05/17/18 00:24 04:14 04:14 WBC 3.80 L RBC 3.43 L Hgb 10.9 L Hct 33.2 L MCV 96.8 MCH 31.8 MCHC 32.8 RDW Std Deviation 49.6 H RDW Coeff of [place] 14.0 Plt Count 70 L MPV 11.3 H Neutrophils % (Manual) 82.6 Lymphocytes % (Manual) 8.7 Monocytes % (Manual) 5.2 Metamyelocytes % (Man) 3.5 Neutrophils # (Manual) 3.14 Total Absolute Neuts 3.14 Lymphocytes # (Manual) 0.33 L Total Abs Lymphocytes 0.33 L Monocytes # (Manual) 0.20 Metamyelocytes # (Man) 0.13 H Platelet Estimate Decreased Echinocytes 1+ Sodium 143 Potassium 4.5 Chloride 109 H Carbon Dioxide 29 Anion Gap 5.0 BUN 15 Creatinine 0.76 D Est Cr Clr Drug Dosing 70.7 Est GFR ( Amer) 96.1 Est GFR (Non-Af Amer) 82.9 BUN/Creatinine Ratio 19.5 Glucose 83 POC Glucose 87 Calcium 8.0 L Phosphorus 3.3 D Magnesium 1.8 _ (1) CAD (coronary artery disease) Associated angina: without angina Coronary Disease-Associated Artery/Lesion type: [place] artery [place] vs. transplanted heart: [place] heart Qualified Code (s): I25.10 - Atherosclerotic heart disease of [place] coronary artery without angina pectoris (2) Leukopenia Leukopenia type: other Qualified Code(s): D72.818 - Other decreased white blood cell count (3) COPD (chronic obstructive pulmonary disease) COPD type: unspecified COPD Chronic bronchitis type: Emphysema type: Qualified Code(s): J44.9 - Chronic obstructive pulmonary disease, unspecified (4) GERD (gastroesophageal reflux disease) Esophagitis presence: without esophagitis Qualified Code(s): K21.9 - Gastro- esophageal reflux disease without esophagitis (5) Hypertension Hypertension type: essential hypertension Qualified Code(s): I10 - Essential (primary) hypertension
[2018-05-17] MEDS: dilTIAZem HCl 125 MG in DEXTROSE 5% 100 ML IV PRN (18:38)
[2018-05-17] MEDS ORDERED: PIPERACILL/TAZOBAC CONSULT ACTIVE PRN (18:49)
[2018-05-17] MEDS ORDERED: PIPERACILLIN/TAZOBACTAM 4.5 GM in DEXTROSE 5% 100 ML IV STA (19:19)
[2018-05-17] MEDS ORDERED: FUROSEMIDE 20 MG in SYRINGE 0 ML IV ONE (19:30)
[2018-05-17 19:37] LABS: Troponin I < 0.015 ng/ml (0-0.045)
[2018-05-17] MEDS ORDERED: AMIODARONE / D5W 150 MG/100 ML BAG IV STA (22:05)
[2018-05-17] MEDS ORDERED: AMIODARONE IV BOLUS / DRIP IV STA (22:05)
[2018-05-17] MEDS ORDERED: AMIODARONE / D5W 360 MG/200 ML BAG IV SCH (22:15)
--- NOTE | 2018-05-17 22:29 | XRay Report ---
XR chest 1V portable HISTORY: 63 years-old Female sob acute shortness of breath COMPARISON: Chest radiograph of same day at 6:57 AM TECHNIQUE: Portable AP view of the chest FINDINGS: Enteric tube appears unchanged. Cardiomediastinal and hilar silhouettes are stable. Bilateral mixed i nterstitial and alveolar opacities redemonstrated progressive opacification of the right upper lobe. Mild right hemidiaphragmatic elevation. There is no pneumothorax or pleural effusion. Bones of the ch est appear grossly intact with degenerative changes of the shoulders and spine. IMPRESSION: Multifocal mixed interstitial and alveolar opacities redemonstrated with progressive opacification of the right upper lobe. Again, these findings are concerning for multifocal pneumonia in the appropria te clinical setting. The above report was generated using voice recognition software. It may contain grammatical, syntax o r spelling errors. Electronically signed by: Pranav Hay M.D. 05/17/2018 10:28 PM
[2018-05-17 22:40] LABS: Hemoglobin 11.2 g/dL (12.0-16.0); Mean Corpuscular Volume 95.1 fL (80-100); RDW Coefficient of Variation 14.3 % (11.5-14.5); Red Blood Count 3.47 M/uL (4.2-5.4); White Blood Count 5.63 K/uL (4.8-10.8)
[2018-05-17] MEDS ORDERED: ALBUMIN 25% 50 ML with FUROSEMIDE 40 MG IV ONE (22:53)
[2018-05-17 23:11] LABS: Mean Corpuscular Hgb Conc 33.9 g/dL (32-36); Mean Platelet Volume 11.4 fL (7.4-10.4); Platelet Count 68 K/uL (130-400)
[2018-05-17 23:12] LABS: Basophils # (auto) 0.01 K/uL (0-0.2); Basophils % (auto) 0.2 %; Dohle Bodies 1+; Echinocytes 2+; Eosinophils # (auto) 0.01 K/uL (0-0.5); Eosinophils % (auto) 0.2 %; Immature Granulocytes # (auto) 0.04 K/uL (0.00-0.02); Immature Granulocytes % (auto) 0.7 %; Lymphocytes # (auto) 0.53 K/uL (1.2-3.4); Lymphocytes % (auto) 9.4 %; Monocytes # (auto) 0.06 K/uL (0.11-0.59); Monocytes % (auto) 1.1 %; Neutrophils # (auto) 4.98 K/uL (1.4-6.5); Neutrophils % (auto) 88.4 %; Toxic Vacuolation 1+
[2018-05-17 23:16] LABS: Albumin Globulin Ratio 0.9 (0.9-2); Albumin Level 2.7 gm/dl (3.4-5.0); BUN Creatinine Ratio 23.6 (10-20); Bilirubin,Total 1.5 mg/dl (0.2-1); Calcium 9.1 mg/dl (8.5-10.1); Creatinine Clr Calc Pharmacy 74.9 ml/min; Est GFR (African American) 97.6; Est GFR (Non-African American) 84.2; Globulin 3.1 gm/dl (2.5-4.0); Potassium 3.6 mmol/L (3.5-5.1); Total Protein 5.8 gm/dl (6.4-8.2)
[2018-05-18] MEDS: HYDROmorphone INJ 1 MG/ML SYRINGE IV PRN ×6 (00:14→23:40)
[2018-05-18] MEDS: PIPERACILLIN/TAZOBACTAM 4.5 GM in DEXTROSE 5% 100 ML IV SCH ×4 (00:16→23:40)
[2018-05-18] MEDS: KETOROLAC TROMETHAMINE 15 MG/ML VIAL IV SCH ×2 (02:29→08:10)
[2018-05-18] MEDS: AMIODARONE / D5W 360 MG/200 ML BAG IV SCH ×2 (04:44→15:49)
[2018-05-18] MEDS: HYDROCORTISONE SOD 50 MG in SYRINGE 0 ML IV SCH ×3 (04:45→20:24)
[2018-05-18] MEDS: dilTIAZem HCl 125 MG in DEXTROSE 5% 100 ML IV PRN (04:50)
[2018-05-18 06:21] LABS: Hematocrit (blood only) 30.9 % (37-47); Hemoglobin 10.6 g/dL (12.0-16.0); Mean Corpuscular Hgb Conc 34.3 g/dL (32-36); Mean Corpuscular Volume 94.8 fL (80-100); RDW Coefficient of Variation 14.4 % (11.5-14.5); RDW Standard Deviation 49.7 fL (36.4-46.3); Red Blood Count 3.26 M/uL (4.2-5.4); White Blood Count 5.42 K/uL (4.8-10.8)
[2018-05-18 06:45] LABS: Mean Platelet Volume 11.3 fL (7.4-10.4); Platelet Count 63 K/uL (130-400)
[2018-05-18 06:46] LABS: INR 1.2 (0.9-1.1); Partial Thromboplastin Ratio 1.3; Partial Thromboplastin Time 34.6 Seconds (21.0-31.0); Prothrombin Time 11.8 Seconds (9.0-12.0)
[2018-05-18 07:01] LABS: BUN Creatinine Ratio 20.9 (10-20); Calcium 8.7 mg/dl (8.5-10.1); Creatinine Clr Calc Pharmacy 62.1 ml/min; Est GFR (African American) 78.3; Est GFR (Non-African American) 67.6; Potassium 3.5 mmol/L (3.5-5.1)
[2018-05-18 07:05] LABS: Eosinophils # (auto) 0.02 K/uL (0-0.5); Eosinophils % (auto) 0.4 %; Immature Granulocytes # (auto) 0.11 K/uL (0.00-0.02); Lymphocytes # (auto) 0.42 K/uL (1.2-3.4); Lymphocytes % (auto) 7.7 %; Monocytes # (auto) 0.23 K/uL (0.11-0.59); Monocytes % (auto) 4.2 %; Neutrophils # (auto) 4.64 K/uL (1.4-6.5); Neutrophils % (auto) 85.7 %
[2018-05-18] MEDS: HEPARIN SOD 5,000 UNIT/0.5 ML VIAL SQ SCH ×2 (08:10→20:24)
--- NOTE | 2018-05-18 08:39 | XRay Report ---
XR chest 1V portable CLINICAL HISTORY: 63 years-old Female presenting with resp failure, b/l infiltrates, interval change. TECHNIQUE: Portable upright AP view of the chest was obtained. COMPARISON: 05/17/2018. FINDINGS: Nasogastric tube descends below the diaphragm looped in the gastric fundus. Cardiac silhouette mildly enlarged. Heterogeneous lung parenchyma with coarse irregular dense reticular pulmonary opacities in the right upper lung and left midlung. These are similar to prior. However, in comparing to multiple priors, opacities have been increasing since 05/15/2018. Degenerative changes of the thoracic spine. External leads overlie the epigastrium. IMPRESSION: 1. Slowly increasing irregular dense pulmonary infiltrates in the right upper and left mid lungs. 2. Cardiomegaly. 3. Appropriately positioned nasogastric tube. Electronically signed by: Sina Oliver M.D. 05/18/2018 8:37 AM
[2018-05-18 09:20] LABS: Folate (Folic Acid) 5.06 ng/ml (>5.38)
[2018-05-18] MEDS ORDERED: POTASSIUM CHLORIDE / WTR 10 MEQ/100 ML PLCT IV ONE (10:30)
[2018-05-18] MEDS ORDERED: FUROSEMIDE 20 MG in SYRINGE 0 ML IV ONE (10:30)
[2018-05-18] MEDS: FOLIC ACID 1 MG in SYRINGE 9.8 ML IV SCH (10:58)
[2018-05-18] MEDS: PANTOprazole 40 MG in SYRINGE 0 ML IV SCH (10:58)
[2018-05-18] MEDS: METOPROLOL TARTRATE 1 MG/ML VIAL IV SCH ×3 (11:47→23:41)
--- NOTE | 2018-05-18 13:25 | Surgery Progress Note ---
Date of Service May 18, 2018 doing better, passed a little gas, no BM yet, NG 50ml, pt denies nausea, no vomiting, Assessment & Plan (1) Incarcerated femoral hernia: pt is doing better, no abdominal pain, matthews continue treatment will F/U 05/18/2018 Matthews doing better, may pull out NG tomorrow, continue treatment Physical Exam 2 Vital Signs (Past 24 Hours): Last Vital Signs Temp 36.3 C L 05/18/18 10:54 Pulse 71 05/18/18 11:47 Resp 20 05/18/18 10:54 BP 112/68 05/18/18 11:47 Pulse Ox 94 05/18/18 10:54 Constitutional: WD/WN, vitals as above Neck: trachea midline, no thyromegaly Respiratory: normal respiratory effort, lungs clear to auscultation Cardiovascular: RRR, no murmur, no edema Gastrointestinal (Abdomen): Percussion/Palpation: abdomen soft Neurologic: awake Psychiatric: Orientation: alert and oriented x 3
--- NOTE | 2018-05-18 15:30 | Cardiology Consultation ---
Date of Consultation May 18, 2018 Assessment & Plan (1) Atrial flutter: The patient's rhythm is consistent with an atrial flutter. Given her history of tobacco abuse and suspected COPD she likely has the substrate for right atrial disease. Why she developed atrial flutter at this juncture is unclear. It is very possible that given her volume shifts and acute illness she developed this arrhythmia. Currently back in a sinus rhythm. I would continue the amiodarone infusion and switch her to an oral regimen when she is taking things by mouth. She could be started on 200 milligrams of amiodarone daily. I will continue this for 1 month and have her follow-up in the Cardiology Clinic at which time we can discuss additional options for treatment. Her chads Vasc score is 2 and nearly 3 given her age. I would advocate systemic anticoagulation once she is out of the acute operative period and the surgeons feel it is safe to start an anticoagulant. I will continue this for at least 1 month at which point she can follow up in the clinic for discussion regarding continued anticoagulation and management of atrial flutter. Present on Admission?: No (2) CAD (coronary artery disease): She has a history of LAD occlusion and collateralization. Despite recent hypotension, tachycardia and use of pressor agents she has not developed elevated biomarkers. This suggests good perfusion overall. She has been maintained on high-dose atorvastatin and beta blockade. Systemic anticoagulation would be a good substitute for daily aspirin should she elect to start. Present on Admission?: Yes (3) Tobacco use: She likely has an element of intrinsic lung disease. This likely contributes to her risk of recurrent atrial flutter. She claims to have stopped smoking since admission. Hopefully she will continue to be abstinent upon discharge. Present on Admission?: Yes (4) Atrial tachycardia, paroxysmal: This afternoon the patient a brief run of a wide complex tachycardia. He was slightly irregular. It appeared to be a typical right bundle branch block morphology. I suspect this represented an ectopic atrial tachycardia rather than ventricular tachycardia. He was not sustained. Did not produce symptoms. No other evaluation is required currently. History of Present Illness Reason for Consultation: Atrial flutter Requesting Physician: Amisha Attending Physician: Gabriel Mccall, DO, FACS History of Present Illness The patient is a 63-year-old woman with a history of coronary artery disease and prior ischemic cardiomyopathy who presented to [facility] with symptoms of an incarcerated femoral hernia. Patient underwent operative intervention and was in the recovery period when she developed the acute onset of a tachyarrhythmia. It seems the patient had minimal awareness of any tachycardia. She had had an element of hypotension in the postoperative. There was treated both with volume resuscitation and pressors. Patient was initially treated with rate control agents and eventually an amiodarone infusion. She did convert back to a sinus rhythm and has maintained sinus rhythm since that time. Patient states that in general she is an active individual. She does not appear to exercise routinely but can perform standard activities without limiting dyspnea or symptoms of chest discomfort. Her coronary disease was discovered incidentally several years ago. She did undergo coronary angiography which revealed significant coronary artery disease that did not require any form of intervention due to good collateralization and its chronicity. She has not been aware of any palpitations on an outpatient basis. She does not endorse symptoms of dizziness or lightheadedness. She did not report syncope. She has not report symptoms of exertional chest discomfort. She denies orthopnea or paroxysmal nocturnal dyspnea. She has not been aware of any swelling in her lower extremities. Currently, she is uncomfortable. She continues to have some discomfort from her operation, but this is improving. She has no appetite. She has not passed flatus. She has been up to a chair but otherwise not ambulatory. Allergies Allergy/AdvReac Type Severity Reaction Status Date / Time Iodinated Contrast- Oral and Allergy Mild rash Unverified 05/15/18 19:05 IV Dye tapentadol [From Nucynta] AdvReac Unknown Confusion Verified 05/15/18 06:44 Home Medications Home Medications Medication Instructions Recorded Confirmed Type aspirin 81 mg tablet,delayed 81 mg PO DAILY 01/13/18 05/15/18 History release atorvastatin 80 mg tablet 80 mg PO HS tab 01/13/18 05/15/18 History lisinopril 5 mg tablet 5 mg PO DAILY 01/13/18 05/15/18 History niacin 500 mg tablet 500 mg PO BID tab 01/13/18 05/15/18 History sucralfate 1 gram tablet 2 gm PO BID tab 01/13/18 05/15/18 History tramadol ER 200 mg tablet,extended 200 mg PO DAILY PRN 01/13/18 05/15/18 History release 24 hr metoprolol tartrate 25 mg PO BID 05/15/18 05/15/18 History pregabalin [Lyrica] 225 mg PO BID 05/15/18 05/15/18 History tramadol 50 mg PO Q6H PRN 05/15/18 05/15/18 History Patient History Medical History Incarcerated femoral hernia Epidural fibrosis (Chronic) left S1 nerve Tobacco use (Chronic) Obesity (Chronic) Osteoarthritis (Chronic) GERD (gastroesophageal reflux disease) (Chronic) Hyperlipidemia (Chronic) Hypertension (Chronic) Lumbar postlaminectomy syndrome (Chronic) Left lumbar radiculitis (Chronic) Myofascial pain (Chronic) Cervicalgia (Chronic) Cervical facet syndrome (Chronic) Cervical spinal stenosis (Chronic) C5-6 History of MN (myocardial infarction) (Chronic) CAD (coronary artery disease) (Chronic) Cervical radiculitis (Resolved) Surgical History H/O heart artery stent (Resolved) History of PTCA (Resolved) History of bilateral tubal ligation (Resolved) History of carpal tunnel release (Resolved) History of cholecystectomy (Resolved) History of lumbar fusion (Resolved) Posterior decompression and instrumented fusion of L4-S1 03/19/2014 Dr. Montesinos History of mandibular surgery (Resolved) S/P lumbar laminectomy (Resolved 03/19/14) S/P total knee arthroplasty (Resolved) Right Social History Current Living Situation: Spouse Other Information That Helps Us Care for You: No Feels Safe at Home: Yes Safety Concerns: Feels Safe At This Time Smoking Status: Current every day smoker Tobacco Type: cigarettes Cigarettes per Day: 1/2 ppd Do You Dip or Chew Tobacco: No Second Hand Exposure: Yes Tobacco Cessation Education Requested by Patient: No Hx Alcohol Use: Yes Alcohol type: wine Alcohol Intake Frequency: hol idays/special occasions only Hx Substance Use: No Beliefs That Will Affect Care: None Preferred Language: Lithuanian Communication Ability: Effective Radar Tester Required: No Review of Systems Complete. Pertinent positives known history of present illness. No recent fevers or chills. Patient does report tobacco abuse which she quit 5 days ago. Physical Exam Vital Signs (Past 24 Hours): Last Vital Signs Temp 36.9 C 05/18/18 14:47 Pulse 80 05/18/18 14:47 Resp 20 05/18/18 14:47 BP 105/66 05/18/18 14:47 Pulse Ox 95 05/18/18 14:47 Physical Exam: She is alert and oriented x3. Mood affect appear normal if she does appear uncomfortable. She answered all questions appropriately. HEENT: Sclerae are anicteric. Pupils are equal and reactive to light and accommodation. Extraocular movements were intact. NG tube in place Neuro: Cranial nerves intact Neck: Examination of the submandibular region did not reveal any significant lymphadenopathy. Carotids are palpable bilaterally and free of bruits on auscultation. There was no evidence of jugular venous distention. The thyroid was not enlarged. Lungs: Lungs are clear to auscultation bilaterally. Very fine crackles in most lung francois, left worse than right. She has normal respiratory effort without use of accessory muscles. There is normal pulmonary excursion. Cardiac: The rhythm was regular. S1 and S2 were normal. There are no murmurs on examination. The PMI was not markedly displaced on palpation. Extremities: Patient has bilateral radial pulses that are equal in intensity. There is no evidence cyanosis or clubbing. There was no evidence of significant peripheral edema bilaterally but she does have sequential compression devices on. Skin: There are no rashes noted on examination today. Results & Data Laboratory Results Abnormal Lab Results 05/17/18 05/17/18 05/17/18 18:59 22:29 22:29 WBC 5.63 RBC 3.47 L Hgb 11.2 L Hct 33.0 L MCV 95.1 MCH 32.3 MCHC 33.9 RDW Std Deviation 50.0 H RDW Coeff of Tigre 14.3 Plt Count 68 L MPV 11.4 H Immature Gran % (Auto) 0.7 Neut % (Auto) 88.4 Lymph % (Auto) 9.4 [place] % (Auto) 1.1 Eos % (Auto) 0.2 Baso % (Auto) 0.2 Immature Gran # (Auto) 0.04 H Neut # (Auto) 4.98 Lymph # (Auto) 0.53 L Faulkner # (Auto) 0.06 L Eos # (Auto) 0.01 Baso # (Auto) 0.01 Toxic Vacuolation 1+ Dohle Bodies 1+ Echinocytes 2+ PT INR APTT PTT Ratio Sodium 143 Potassium 3.6 D Chloride 108 H Carbon Dioxide 27 Anion Gap 8.0 BUN 18 Creatinine 0.75 Est Cr Clr Drug Dosing 74.9 Est GFR ( Amer) 97.6 Est GFR (Non-Af Amer) 84.2 BUN/Creatinine Ratio 23.6 H Glucose 92 Calcium 9.1 Magnesium 2.0 Total Bilirubin 1.5 H AST 26 ALT 32 Alkaline Phosphatase 69 Troponin I < 0.015 Total Protein 5.8 L Albumin 2.7 L Globulin 3.1 Albumin/Globulin Ratio 0.9 Vitamin B12 Folate TSH 0.410 05/18/18 05/18/18 05/18/18 06:07 06:07 06:07 WBC 5.42 RBC 3.26 L Hgb 10.6 L Hct 30.9 L MCV 94.8 MCH 32.5 MCHC 34.3 RDW Std Deviation 49.7 H RDW Coeff of [place] 14.4 Plt Count 63 L MPV 11.3 H Immature Gran % (Auto) 2.0 Neut % (Auto) 85.7 Lymph % (Auto) 7.7 Faulkner % (Auto) 4.2 Eos % (Auto) 0.4 Baso % (Auto) 0.0 Immature Gran # (Auto) 0.11 H Neut # (Auto) 4.64 Lymph # (Auto) 0.42 L Fa[place]ner # (Auto) 0.23 Eos # (Auto) 0.02 Baso # (Auto) 0.00 Toxic Vacuolation Dohle Bodies Echinocytes PT INR APTT PTT Ratio Sodium 143 Potassium 3.5 Chloride 106 Carbon Dioxide 31 Anion Gap 6.0 BUN 19 H Creatinine 0.90 Est Cr Clr Drug Dosing 62.1 Est GFR ( Amer) 78.3 Est GFR (Non-Af Amer) 67.6 BUN/Creatinine Ratio 20.9 H Glucose 112 H Calcium 8.7 Magnesium Total Bilirubin AST ALT Alkaline Phosphatase Troponin I Total Protein Albumin Globulin Albumin/Globulin Ratio Vitamin B12 1280 H Folate 5.06 L TSH 05/18/18 06:07 WBC RBC Hgb Hct MCV MCH MCHC RDW Std Deviation RDW Coeff of [place] Plt Count MPV Immature Gran % (Auto) Neut % (Auto) Lymph % (Auto) Faulkner % (Auto) Eos % (Auto) Baso % (Auto) Immature Gran # (Auto) Neut # (Auto) Lymph # (Auto) Fa[place]ner # (Auto) Eos # (Auto) Baso # (Auto) Toxic Vacuolation Dohle Bodies Echinocytes PT 11.8 INR 1.2 H APTT 34.6 H PTT Ratio 1.3 Sodium Potassium Chloride Carbon Dioxide Anion Gap BUN Creatinine Est Cr Clr Drug Dosing Est GFR ( Amer) Est GFR (Non-Af Amer) BUN/Creatinine Ratio Glucose Calcium Magnesium Total Bilirubin AST ALT Alkaline Phosphatase Troponin I Total Protein Albumin Globulin Albumin/Globulin Ratio Vitamin B12 Folate TSH Diagnostic Findings Echocardiogram performed yesterday revealed preserved LV systolic function with some regional wall motion abnormalities. No significant valvular heart disease ECG Additional Comments: Reviewed her telemetry does reveal an episode of atrial flutter eventually converting to a normal sinus rhythm. Around 02 21 today she did have an episode of wide complex tachycardia. (1) CAD (coronary artery disease) Associated angina: without angina Coronary Disease-Associated Artery/Lesion type: [place] artery [place] vs. transplanted heart: [place] heart Qualified Code(s): I25.10 - Atherosclerotic heart disease of [place] coronary artery without angina pectoris
[2018-05-18] MEDS ORDERED: FUROSEMIDE 20 MG in SYRINGE 0 ML IV STA (17:12)
--- NOTE | 2018-05-18 17:33 | Pulmonology Progress Note ---
Date of Service May 18, 2018 Assessment & Plan (1) Hypotension: Impression: 1. Right inguinal hernia, incarcerated, status post open surgical repair. 2. COPD, gold level cannot be determined. 3. Sepsis versus right-sided failure, I do not have previous echo done on her in the past. Plan: 1. Continue with diuresis. 2. I will add vibrating vest 4 times daily to help the patient coughing up her mucoid impaction, she is unable to do so due to narcotic effect as well as pain post abdominal surgery. 3. New onset A. fib, consider evaluation for PE, given her oxygen requirement. 4. Bronchodilators. 5. Pain control, minimize narcotics as possible. 6. The patient was offered a bronchoscopy for pulmonary toilet, she declined it. 7. No need to escalate antibiotic at this point, unless the patient starts showing signs of infectious process such as fever leukocytosis or bandemia. 8. Continue hydrocortisone 50 mg IV every 8. 9. DVT prophylaxis. 10. PPI for GI prophylaxis. 11. Discussed with Dr. Lion. Thank you, will follow. Subjective The patient has an event overnight where she developed A. fib, responded to amiodarone and converted to sinus rhythm. The patient had an episode of pulmonary edema requiring Lasix and responded to it with 2 L negative fluid balance. She is feeling better today, however her oxygen requirement remains in the range above than 10 L via facemask. She is speaking in full sentences and denies any shortness of breath, she is having difficulty raising her sputum. Physical Exam 2 Vital Signs (Past 24 Hours): Last Vital Signs Temp 36.9 C 05/18/18 14:47 Pulse 72 05/18/18 16:05 Resp 20 05/18/18 14:47 BP 105/66 05/18/18 14:47 Pulse Ox 95 05/18/18 14:47 Physical Exam: Her vital signs remained stable, 95% on oxygen mask, no fever, S1-S2 regular rate and rhythm, she was not in A. fib when I examined her, bilateral crackles, abdomen is postop but benign, obese, peripheral extremity edema. Neurologically she is dosing due to the effect of narcotics analgesics. Results & Data Laboratory Results Her labs were reviewed which showed no leukocytosis, stable BUN and creatinine, slightly elevated bilirubin, no BNP was drawn. Diagnostic Findings Repeat chest x-ray today showed minimal improvement in her pulmonary vascular congestion. But the increased atelectasis of the basis is noted.
[2018-05-18] MEDS ORDERED: FAMOTIDINE 20MG/5ML IV PUSH IV ONE (17:50)
--- NOTE | 2018-05-18 17:58 | Hospitalist Progress Note ---
Date of Service May 18, 2018 Assessment & Plan (1) Acute on chronic diastolic (congestive) heart failure: The patient has been markedly positive from a volume standpoint since admission in the face of her critical illness, shock, surgery, etc. Fluids were stopped yesterday evening, and she has diuresed well over 2 liters of fluid since then w/ multiple doses of IV lasix. Will give another 20mg this AM and then 20mg this evening. She likely will end up needing 20mg IV once or twice a day thereafter. Check daily labs. Echo reviewed. Cardiology consult & assistance appreciated. Present on Admission?: No (2) Acute respiratory failure with hypoxia: Multifactorial including ?pneumonia and acute/chronic diastolic CHF. Since she is responding to diuretics I doubt ARDS. Cont oxymask; O2 sats in the low 90s are acceptable. Cont diuresis, abx, and supportive care. Appreciate pulmonary consultation. Bronch offered to patient but she declined. Present on Admission?: Yes (3) Atrial flutter: Multiple episodes of rapid a. flutter last evening with poor response to AV rita agents. Amiodarone infusion employed last night. Patient ultimately converted to NSR and has remained in NSR since then. Cardiology consult done. They recommend continuation of the amiodarone drip with conversion to PO amiodarone once taking PO. Due to high CHADS score anticoagulation would be ideal; would need to get clearance from surgery for such. This will be discussed further during her hospitalization. TSH, K, and mag all normal today. Some concern that PE could have caused the a. flutter but patient was on DVT prophylaxis. Defer to pulmonary whether to pursue more advanced imaging. Present on Admission?: No (4) Pneumonia: Question of. Imaging of the chest is likely pulmonary edema but cannot rule out a multifocal pneumonia. She easily could have aspirated at home prior to admission (had been vomiting) or perioperatively. Due to the severity of her illness zosyn was initiated last evening. Day #2 of zosyn. ARDS considered less likely. MRSA swab neg; defer on MRSA coverage for now. Blood cx's are negative from admission. (5) Complicated unilateral incarcerated femoral hernia: s/p open laparotomy with Small Bowel Resection, Repair of Strangulated Hernia on right. POD #3. management per surgery. course complicated by shock,, a flutter, respiratory failure, and significant electrolyte disturbances. NPO, NG tube. Appreciate surgical management. (6) Small bowel obstruction: 2nd to incarcerated right-sided femoral hernia. s/p open laparotomy with 10cm of small bowel resected. NG tube, etc - defer to general surgery. (7) Shock: septic and/or hypovolemic and/or addisonian (was on steroids recently prior to her hosptialization). no evidence of cardiogenic shock. resolved. cont stress dose steroids; possibly wean tomorrow? cont IV zosyn. (8) COPD (chronic obstructive pulmonary disease): not in exacerbation at this time. incentive elsa. nebs prn. scheduled nebs stopped last night due to concern albuterol was making a flutter worse. (9) Tobacco use: nicoderm patch if desired. counseled to quit. (10) GERD (gastroesophageal reflux disease): 2013 EGD w/ gastritis. takes PPI on prn basis at home. IV PPI while here. (11) Hypertension: stopping cardizem infusion. start lopressor 2.5 IV q6h. (12) CAD (coronary artery disease): repeat echo with unchanged EF and unchanged wall motion. low-dose lopressor IV q6h. troponins negative despite all of the above. (13) Hypomagnesemia: etiology?? not on diuretics prior to admission. was not having diarrhea prior to admission. wasn't taking her PPI regularly. does not drink etoh. either way aggressively replaced and now normal. repeat mag level in AM for stability. (14) Hypokalemia: resolved. K normal today. (15) Leukopenia: etiology? sepsis induced? other? due to low folate? suspect some element of sepsis induced leukopenia. low folate theoretically could contribute. replace folic acid. cbc am. (16) Thrombocytopenia: etiology? sepsis induced? other? due to folic acid deficiency? replace folate. cbc in am. is on heparin SC, but a bit early for HIT. follow carefully. (17) Folic acid deficiency: folic acid 1mg IV daily. etiology?? very odd that patient had profoundly low magnesium, potassium at admission and also folate deficiency. suggests malnutrition or intestinal absorption issue. again denies alcohol abuse. (18) DVT prophylaxis: heparin. appreciate gen surg, pulmonary, and cardiology help. remains very ill but more stable than last pm. I called and spoke w/ her , Dean. Gave broad update including events of the weekend, respiratory issues, surgical plan, etc. He reports that in the last month she was feeling well, eating well, etc. Had 24 hours of vomiting prior to admission but no diarrhea. No heavy etoh use. total time today between speaking with various consultants, speaking with , care coordination, etc -- 65 minutes Subjective events of overnight reviewed. she had rapid a flutter multiple times. rates were not responsive to cardizem infusion. decision was made to place on amiodarone infusion. she ultimately converted to NSR and has remained in NSR since that time. she was given additional lasix (40mg IV x1) along with albumin infusion late last evening. from 11pm to 7am she had a net diuresis of about 2 liters. patient was refusing the high-flow NC; refused BIPAP; changed to oxymask. remains on such this am. patient states she "feels a little better" in comparison to yesterday. still w/ cough and dyspnea. no passage of flatus. NG tube with dark material (not bile) today and less volume than yesterday. Constitutional: + fatigue; no fever and no chills Respiratory: + cough and + dyspnea; no sputum production and no wheezing Cardiovascular: no chest pain, no chest pain at rest and no paroxysmal nocturnal dyspnea Gastrointestinal: + abdominal pain; no nausea and no vomiting Physical Exam 2 Vital Signs (Past 24 Hours): Last Vital Signs Temp 36.9 C 05/18/18 14:47 Pulse 77 05/18/18 17:45 Resp 20 05/18/18 14:47 BP 121/74 05/18/18 17:45 Pulse Ox 95 05/18/18 14:47 Constitutional: + ill appearing; no acute distress looks more comfortable than yesterday ENMT: Mouth: no oral mucosal abnormality (MM are moist today) Respiratory: Auscultation: + diminished lung sounds (both bases) and + rales ( diffuse b/l ); no rhonchi and no wheezes Cardiovascular: Rate/Rhythm: regular rate and regular rhythm Heart Sounds: normal S1 and normal S2; no murmur Vessels: + JVD and dorsalis pedis pulses present Extremities: normal capillary refill and + edema (extending to the thighs) Gastrointestinal (Abdomen): Inspection/Auscultation: + abdomen distended; + abnormal bowel sounds (not normal but improved from yesterday) Percussion/ Palpation: + abdomen tender (incisions); no guarding, abdomen not rigid and no hepatosplenomegaly body wall edema present Psychiatric: A+Ox3, euthymic affect Results & Data Laboratory Results Laboratory Results - last 24 hr 05/17/18 05/17/18 05/17/18 18:59 22:29 22:29 WBC 5.63 RBC 3.47 L Hgb 11.2 L Hct 33.0 L MCV 95.1 MCH 32.3 MCHC 33.9 RDW Std Deviation 50.0 H RDW Coeff of [place] 14.3 Plt Count 68 L MPV 11.4 H Immature Gran % (Auto) 0.7 Neut % (Auto) 88.4 Lymph % (Auto) 9.4 [place] % (Auto) 1.1 Eos % (Auto) 0.2 Baso % (Auto) 0.2 Immature Gran # (Auto) 0.04 H Neut # (Auto) 4.98 Lymph # (Auto) 0.53 L [place] # (Auto) 0.06 L Eos # (Auto) 0.01 Baso # (Auto) 0.01 Toxic Vacuolation 1+ Dohle Bodies 1+ Echinocytes 2+ PT INR APTT PTT Ratio Sodium 143 Potassium 3.6 D Chloride 108 H Carbon Dioxide 27 Anion Gap 8.0 BUN 18 Creatinine 0.75 Est Cr Clr Drug Dosing 74.9 Est GFR ( Amer) 97.6 Est GFR (Non-Af Amer) 84.2 BUN/Creatinine Ratio 23.6 H Glucose 92 Calcium 9.1 Magnesium 2.0 Total Bilirubin 1.5 H AST 26 ALT 32 Alkaline Phosphatase 69 Troponin I < 0.015 Total Protein 5.8 L Albumin 2.7 L Globulin 3.1 Albumin/Globulin Ratio 0.9 Vitamin B12 Folate TSH 0.410 05/18/18 05/18/18 05/18/18 06:07 06:07 06:07 WBC 5.42 RBC 3.26 L Hgb 10.6 L Hct 30.9 L MCV 94.8 MCH 32.5 MCHC 34.3 RDW Std Deviation 49.7 H RDW Coeff of [place] 14.4 Plt Count 63 L MPV 11.3 H Immature Gran % (Auto) 2.0 Neut % (Auto) 85.7 Lymph % (Auto) 7.7 [place] % (Auto) 4.2 Eos % (Auto) 0.4 Baso % (Auto) 0.0 Immature Gran # (Auto) 0.11 H Neut # (Auto) 4.64 Lymph # (Auto) 0.42 L [place] # (Auto) 0.23 Eos # (Auto) 0.02 Baso # (Auto) 0.00 Toxic Vacuolation Dohle Bodies Echinocytes PT INR APTT PTT Ratio Sodium 143 Potassium 3.5 Chloride 106 Carbon Dioxide 31 Anion Gap 6.0 BUN 19 H Creatinine 0.90 Est Cr Clr Drug Dosing 62.1 Est GFR ( Amer) 78.3 Est GFR (Non-Af Amer) 67.6 BUN/Creatinine Ratio 20.9 H Glucose 112 H Calcium 8.7 Magnesium Total Bilirubin AST ALT Alkaline Phosphatase Troponin I Total Protein Albumin Globulin Albumin/Globulin Ratio Vitamin B12 1280 H Folate 5.06 L TSH 05/18/18 06:07 WBC RBC Hgb Hct MCV MCH MCHC RDW Std Deviation RDW Coeff of [place] Plt Count MPV Immature Gran % (Auto) Neut % (Auto) Lymph % (Auto) [place] % (Auto) Eos % (Auto) Baso % (Auto) Immature Gran # (Auto) Neut # (Auto) Lymph # (Auto) [place] # (Auto) Eos # (Auto) Baso # (Auto) Toxic Vacuolation Dohle Bodies Echinocytes PT 11.8 INR 1.2 H APTT 34.6 H PTT Ratio 1.3 Sodium Potassium Chloride Carbon Dioxide Anion Gap BUN Creatinine Est Cr Clr Drug Dosing Est GFR ( Amer) Est GFR (Non-Af Amer) BUN/Creatinine Ratio Glucose Calcium Magnesium Total Bilirubin AST ALT Alkaline Phosphatase Troponin I Total Protein Albumin Globulin Albumin/Globulin Ratio Vitamin B12 Folate TSH Diagnostic Findings chest x-ray - IMPRESSION: 1. Slowly increasing irregular dense pulmonary infiltrates in the right upper and left mid lungs. 2. Cardiomegaly. 3. Appropriately positioned nasogastric tube. _ (1) COPD (chronic obstructive pulmonary disease) COPD type: unspecified COPD Chronic bronchitis type: Emphysema type: Qualified Code(s): J44.9 - Chronic obstructive pulmonary disease, unspecified (2) GERD (gastroesophageal reflux disease) Esophagitis presence: without esophagitis Qualified Code(s): K21.9 - Gastro- esophageal reflux disease without esophagitis (3) Hypertension Hypertension type: essential hypertension Qualified Code(s): I10 - Essential (primary) hypertension (4) CAD (coronary artery disease) Coronary Disease-Associated Artery/Lesion type: [place] artery [place] vs. transplanted heart: [place] heart Associated angina: without angina Qualified Code(s): I25.10 - Atherosclerotic heart disease of [place] coronary artery without angina pectoris (5) Leukopenia Leukopenia type: other Neutropenia type: Qualified Code(s): D72.818 - Other decreased white blood cell count (6) Atrial flutter Atrial flutter type: unspecified Qualified Code(s): I48.92 - Unspecified atrial flutter (7) Pneumonia Pneumonia type: due to unspecified organism Laterality: bilateral Lung location: unspecified part of lung Qualified Code(s): J18.9 - Pneumonia, unspecified organism
[2018-05-18] MEDS ORDERED: methylPREDNISolone 40 MG in SYRINGE 0 ML IV SCH (19:00)
[2018-05-18] MEDS ORDERED: DiphenhydrAMINE HCL 50 MG/ML VIAL IV SCH (19:00)
[2018-05-18] MEDS ORDERED: ACETAMINOPHEN 65 ML IV SCH (19:00)
[2018-05-18] MEDS ORDERED: FAMOTIDINE 20 MG in SYRINGE 3 ML IV SCH (19:00)
[2018-05-18] MEDS ORDERED: OPTIRAY 320 125ml IV PRN (19:59)
--- NOTE | 2018-05-18 20:08 | CT Scan Report ---
CT angio chest PE protocol CLINICAL HISTORY: 63 years-old Female presenting with respiratory failure, bilateral infiltrates, alt ered mental status, clinical concern for pulmonary embolus. TECHNIQUE: Multidetector CT angiography of the chest was performed after administration of intravenou s contrast. 3-D volumetric and/or maximum intensity projection (MIP) images were subsequently reconst ructed for review. IV contrast: 120 mL of Optiray 320. One or more dose lowering techniques were used consistent with the principles of ALARA (as low as reasonably achievable), including automatic expos ure control, mA or kV adjustment to individual patient size, and/or use of iterative reconstruction. COMPARISON: Chest x-ray from earlier today. CT DOSE (mGy.cm): The estimated cumulative dose is 446.05 mGy.cm. FINDINGS: Dispatch Manager topogram: Diffuse pulmonary opacities. Cholecystectomy clips. Nasogastric tube terminates in th e stomach fundus. Pulmonary vasculature: The study is suboptimal for the assessment of the pulmonary vascular tree secondary to respiratory mo tion artifact. No filling defect within the pulmonary arteries to suggest embolus. Main pulmonary art lubna mildly enlarged measuring 3.5 cm in diameter. No flattening of the interventricular septum. No in tracardiac filling defect. No reflux of contrast into the hepatic veins. Remaining chest: Soft tissues: Normal thyroid and thoracic inlet. No axillary, supraclavicular, mediastinal, or hilar lymphadenopathy. Normal aorta. Multichamber enlargement of the heart. Coronary artery calcification. Trace bilateral pleural effusions. Nasogastric tube terminates in the stomach. Lungs and airways: No pneumothorax. Central airways patent allowing for the expiratory phase of respi ration, however, narrowing of lobar, segmental, and subsegmental airways bilaterally. Extensive inter lobular septal thickening. Patchy groundglass and more solid consolidation with an upper lobe predomi nance though affecting all 5 lobes. Dependent atelectasis also noted in the lower lobes. Pulmonary ar teries are significantly enlarged relative to adjacent bronchi. Musculoskeletal: Degenerative changes of the spine. IMPRESSION: 1. No evidence of pulmonary embolus. 2. Extensive bilateral pulmonary infiltrates affecting all 5 lobes. Differential considerations incl ude multifocal pneumonia, pulmonary edema, or, less likely, hemorrhage. 3. Cardiomegaly with volume overload/congestive change. 4. Evidence of pulmonary artery hypertension. 5. Trace bilateral pleural effusions. 6. Appropriately positioned nasogastric tube. Electronically signed by: Sina Oliver M.D. 05/18/2018 8:06 PM
[2018-05-19] MEDS: AMIODARONE / D5W 360 MG/200 ML BAG IV SCH ×2 (02:28→14:33)
[2018-05-19] MEDS: HYDROmorphone INJ 1 MG/ML SYRINGE IV PRN ×4 (03:48→16:11)
[2018-05-19] MEDS: HYDROCORTISONE SOD 50 MG in SYRINGE 0 ML IV SCH ×2 (05:48→13:17)
[2018-05-19] MEDS: METOPROLOL TARTRATE 1 MG/ML VIAL IV SCH ×4 (05:48→23:10)
[2018-05-19] MEDS ORDERED: DiphenhydrAMINE HCL 50 MG/ML VIAL IV ONE (05:57)
[2018-05-19 06:42] LABS: Hematocrit (blood only) 30.8 % (37-47); Hemoglobin 10.4 g/dL (12.0-16.0); Mean Corpuscular Hgb Conc 33.8 g/dL (32-36); Mean Corpuscular Volume 93.9 fL (80-100); RDW Coefficient of Variation 14.6 % (11.5-14.5); RDW Standard Deviation 50.1 fL (36.4-46.3); Red Blood Count 3.28 M/uL (4.2-5.4); White Blood Count 7.59 K/uL (4.8-10.8)
[2018-05-19 06:47] LABS: Mean Platelet Volume 11.1 fL (7.4-10.4); Platelet Count 91 K/uL (130-400)
[2018-05-19 07:11] LABS: Platelet Estimate Decreased (Normal)
[2018-05-19 07:20] LABS: BUN Creatinine Ratio 24.6 (10-20); Calcium 8.9 mg/dl (8.5-10.1); Est GFR (Non-African American) 59.5; Magnesium 1.9 mg/dl (1.8-2.4); Phosphorus 3.3 mg/dl (2.5-4.9)
[2018-05-19] MEDS: PIPERACILLIN/TAZOBACTAM 4.5 GM in DEXTROSE 5% 100 ML IV SCH ×3 (07:42→23:16)
[2018-05-19] MEDS: FOLIC ACID 1 MG in SYRINGE 9.8 ML IV SCH (08:26)
[2018-05-19] MEDS: HEPARIN SOD 5,000 UNIT/0.5 ML VIAL SQ SCH ×2 (08:26→20:42)
[2018-05-19] MEDS ORDERED: MAGNESIUM SULFATE / D5W 1 GM/100 ML BAG IV ONE (10:00)
[2018-05-19] MEDS: POTASSIUM CHLORIDE / WTR 10 MEQ/100 ML PLCT IV SCH ×6 (10:15→18:57)
[2018-05-19] MEDS: PANTOprazole 40 MG in SYRINGE 0 ML IV SCH (10:54)
--- NOTE | 2018-05-19 14:34 | Progress Note ---
DATE: 05/19/2018 PULMONARY PROGRESS NOTE TIME: 2:05 p.m. SUBJECTIVE: The patient indicates she is generally feeling better. She is less short of breath today. She is mostly bothered by the nasogastric tube. She finds it uncomfortable. She feels a tickle and discomfort in her throat. She does state that she coughs up some phlegm. She does not look at it, however, and has no idea what color. Nursing staff reports the patient has been less winded today. Her oxygen needs have decreased somewhat as well. OBJECTIVE: GENERAL: The chart was reviewed. X-rays reviewed. The patient is comfortable at rest. VITAL SIGNS: Temperature is 36.6. There have been no significant fevers and she had a peak temperature in the prior 24 hours of 36.9. Cardiac rate is 73 per minute. Rhythm is regular. Blood pressure 121/70. HEENT: Pupils were reactive. There is a nasogastric tube in place. She has a white coated tongue. LUNGS: Respiratory rate is 20 breaths per minute. Mild rales are heard bilaterally posteriorly. There was no accessory muscle use. Saturation is 94% upon last checked and was at 6 liters. Subsequently, her saturations have been maintained with the oxygen cut back to 4 liters. ABDOMEN: Revealed bowel sounds to be very diminished. EXTREMITIES: Difficult to assess as she has the intermittent compression device. She does have some edema bilaterally. Output for the prior 48 hours was 4890 mL. LABORATORY DATA: White count today is 7.59. Hemoglobin 10.4. Platelets 91,000. One day earlier, the platelets were 63,000. Electrolytes show sodium 145, potassium 3, chloride 106, bicarbonate 30. BUN is 24 with a creatinine of 1. Calcium was 8.9. Magnesium and phosphorus are 1.9 and 3.3 respectively. The patient had a chest x-ray yesterday. This shows increasing quite dense infiltrates in the upper lung francois bilaterally. CAT scan of the chest done yesterday showed no evidence of pulmonary embolism. There was extensive pulmonary infiltrates involving all 5 lobes. I suspect this is related to aspiration. She did give a history of having at least 5 episodes of vomiting prior to coming to the hospital, some of which were occurring at night. The x-ray and CAT scan looked much worse than what the patient currently does. Clinically, however, aspiration would seem to fit. IMPRESSION: 1. Diffuse bilateral lung infiltrates - rule out secondary to aspiration versus other causes. 2. Chronic obstructive pulmonary disease. 3. Status post right incarcerated inguinal hernia repair. COMMENTS AND RECOMMENDATIONS: The patient apparently is clinically improved. She is on pantoprazole, hydrocortisone, and Zosyn. She is also on neb treatments with DuoNebs, which were put on hold apparently. This may have been because of the arrhythmia she had. She should have serial x-rays that follow up until clear.
[2018-05-19] MEDS ORDERED: CHLORASEPTIC 1.4% SOLN 180 ML BTL MT PRN (15:26)
--- NOTE | 2018-05-19 15:26 | Hospitalist Progress Note ---
Date of Service May 19, 2018 Assessment & Plan (1) Acute on chronic diastolic (congestive) heart failure: The patient has been markedly positive from a volume standpoint since admission in the face of her critical illness, shock, surgery, etc. Fluids were stopped, and she has diuresed well over 2 liters of fluid since then w/ multiple doses of IV lasix. Will give another 20mgIV now as weight same since yesterday and still requiring O2 Continue to diurese as needed day to day Check daily labs. Echo reviewed. Cardiology consult & assistance appreciated. (2) Acute respiratory failure with hypoxia: Multifactorial including ? aspiration pneumonia and acute/chronic diastolic CHF. Since she is responding to diuretics I doubt ARDS. Cont oxymask; O2 sats in the low 90s are acceptable. Cont diuresis, abx, and supportive care. Appreciate pulmonary consultation. Bronch offered to patient but she declined. (3) Atrial flutter: Multiple episodes of rapid a. flutter on the evening of 05/17/18 with poor response to AV rita agents. Amiodarone infusion employed Patient ultimately converted to NSR and has remained in NSR since then. Cardiology consult done. They recommend continuation of the amiodarone drip with conversion to PO amiodarone once taking PO. Due to high CHADS score anticoagulation would be ideal; would need to get clearance from surgery for such. This will be discussed further during her hospitalization. TSH normal -follow lytes and replace as needed Some concern that PE could have caused the a. flutter but patient was on DVT prophylaxis. CTA Chest neg for PE (4) Pneumonia: Infiltrates in all lobes on chest CT Imaging of the chest is likely pulmonary edema but cannot rule out a multifocal pneumonia. She easily could have aspirated at home prior to admission (had been vomiting) or perioperatively. Due to the severity of her illness zosyn was initiated last evening. Day #3 of zosyn. ARDS considered less likely. MRSA swab neg; defer on MRSA coverage for now. Blood cx's are negative from admission. (5) Complicated unilateral incarcerated femoral hernia: s/p open laparotomy with Small Bowel Resection, Repair of Strangulated Hernia on right. POD #4. management per surgery. course complicated by shock,, a flutter, respiratory failure, and significant electrolyte disturbances. NPO, NG tube-add chloraseptic spray for discomfort Possible dc NGT today-awaiting surgery input -adv diet as tolerated. Appreciate surgical management. (6) Small bowel obstruction: 2nd to incarcerated right-sided femoral hernia. s/p open laparotomy with 10cm of small bowel resected. NG tube, etc - defer to general surgery. (7) Shock: septic and/or hypovolemic and/or addisonian (was on steroids recently prior to her hosptialization). no evidence of cardiogenic shock. resolved. cont stress dose steroids;will wean to HC 25mg IV q8 today cont IV zosyn. (8) COPD (chronic obstructive pulmonary disease): not in exacerbation at this time. incentive elsa. nebs prn. scheduled nebs stopped due to concern albuterol was making a flutter worse. (9) Tobacco use: nicoderm patch if desired. counseled to quit. (10) GERD (gastroesophageal reflux disease): 2013 EGD w/ gastritis. takes PPI on prn basis at home. IV PPI while here. (11) Hypertension: stopping cardizem infusion. cont lopressor 2.5 IV q6h. (12) CAD (coronary artery disease): repeat echo with unchanged EF and unchanged wall motion. low-dose lopressor IV q6h. troponins negative despite all of the above. (13) Hypomagnesemia: Was severely low on admission, possibly due to GI losses? not on diuretics prior to admission. was not having diarrhea prior to admission. wasn't taking her PPI regularly. does not drink etoh. either way aggressively replaced and now normal. repeat mag level in AM for stability. (14) Hypokalemia: Low again today, due to no po intake and diuresis -replace KCl 60meq total today -follow BMP (15) Leukopenia: etiology possibly sepsis induced Now resolved (16) Thrombocytopenia: etiology? sepsis induced? Improved now to 90k Follow CBC (17) Folic acid deficiency: -continue folic acid 1mg IV daily. etiology?? very odd that patient had profoundly low magnesium, potassium at admission and also folate deficiency. suggests malnutrition or intestinal absorption issue. again denies alcohol abuse. (18) Oral candidiasis: start clotrimazole trouches (19) Situational anxiety: order lorazepam 0.5mg IV q6h prn anxiety (20) DVT prophylaxis: heparin SQ appreciate gen surg, pulmonary, and cardiology help. Dispo-remain on tele Subjective Pt feeling very anxious about having the NGT in and really wants it out. Requesting something for anxiety. Has a very sore tongue ad mouth. is still a little SOB and some cough. No chest pain. Has some abd pain. Thinks maybe she passed some flatus today but not sure. Tele with NSR, rates 70s Review of Systems All systems reviewed & are unremarkable except as noted in HPI & below Physical Exam 2 Vital Signs (Past 24 Hours): Last Vital Signs Temp 36.6 C 05/19/18 10:31 Pulse 70 05/19/18 12:07 Resp 19 05/19/18 10:31 BP 121/70 05/19/18 12:07 Pulse Ox 94 05/19/18 11:37 Constitutional: WD/WN, vitals as above Eyes: PERRL, conjunctivae normal, anicteric sclerae ENMT: Mouth: + oropharynx abnormality (thick white coating on tongue) Neck: trachea midline, no thyromegaly Respiratory: normal respiratory effort; does not use accessory muscles Auscultation: + crackles (lower lung francois bilat); no wheezes Cardiovascular: Rate/Rhythm: regular rate and regular rhythm Heart Sounds: + murmur Extremities: + edema (trace pitting edema legs bilat) Gastrointestinal (Abdomen): Inspection/Auscultation: + hypoactive bowel sounds ; + abdomen abnormal to inspection (incision with dressing c/d/i) Percussion/ Palpation: + abdomen tender (over incisions) and abdomen soft Musculoskeletal: Extremities: extremities normal to inspection; no cyanosis and no clubbing Skin: no rashes, warm and dry Neurologic: moves all extremities and awake; no focal motor deficits Psychiatric: Orientation: alert and oriented x 3 Affect: + anxious affect Mood: + anxious mood Genitourinary: [place] in place with clear yellow urine Results & Data Laboratory Results 05/19/18 05/19/18 Range/Units 06:18 06:18 WBC 7.59 (4.8-10.8) K/uL RBC 3.28 L (4.2-5.4) M/uL Hgb 10.4 L (12.0-16.0) g/dL Hct 30.8 L (37-47) % MCV 93.9 (80-100) fL MCH 31.7 (25-34) pg MCHC 33.8 (32-36) g/dL RDW Std Deviation 50.1 H (36.4-46.3) fL RDW Coeff of [place] 14.6 H (11.5-14.5) % Plt Count 91 L (130-400) K/uL MPV 11.1 H (7.4-10.4) fL Platelet Estimate Decreased (Normal) Sodium 145 (136-145) mmol/L Potassium 3.0 L (3.5-5.1) mmol/L Chloride 106 (98-107) mmol/L Carbon Dioxide 30 (21-32) mmol/L Anion Gap 9.0 (3-11) BUN 24 H (7-18) mg/dl Creatinine 1.00 (0.6-1.2) mg/dl Est Cr Clr Drug Dosing 56.0 ml/min Est GFR ( Amer) 69.0 Est GFR (Non-Af Amer) 59.5 BUN/Creatinine Ratio 24.6 H (10-20) Glucose 111 H (70-99) mg/dl Calcium 8.9 (8.5-10.1) mg/dl Phosphorus 3.3 (2.5-4.9) mg/dl Magnesium 1.9 (1.8-2.4) mg/dl _ (1) Atrial flutter Atrial flutter type: unspecified Qualified Code(s): I48.92 - Unspecified atrial flutter (2) Pneumonia Pneumonia type: due to unspecified organism Aspiration pneumonia type: Laterality: bilateral Lung location: unspecified part of lung Qualified Code(s ): J18.9 - Pneumonia, unspecified organism (3) COPD (chronic obstructive pulmonary disease) COPD type: unspecified COPD Chronic bronchitis type: Emphysema type: Qualified Code(s): J44.9 - Chronic obstructive pulmonary disease, unspecified (4) GERD (gastroesophageal reflux disease) Esophagitis presence: without esophagitis Qualified Code(s): K21.9 - Gastro- esophageal reflux disease without esophagitis (5) Hypertension Hypertension type: essential hypertension Qualified Code(s): I10 - Essential (primary) hypertension (6) CAD (coronary artery disease) Coronary Disease-Associated Artery/Lesion type: [place] artery [place] vs. transplanted heart: [place] heart Associated angina: without angina Qualified Code(s): I25.10 - Atherosclerotic heart disease of [place] coronary artery without angina pectoris (7) Leukopenia Leukopenia type: other Neutropenia type: Qualified Code(s): D72.818 - Other decreased white blood cell count
[2018-05-19] MEDS ORDERED: FUROSEMIDE 20 MG in SYRINGE 0 ML IV ONE (15:45)
[2018-05-19] MEDS: LORazepam 0.5 MG/1 ML VIAL IV PRN ×2 (15:47→22:57)
--- NOTE | 2018-05-19 16:10 | Surgery Progress Note ---
Date of Service May 19, 2018 Assessment & Plan (1) Complicated unilateral incarcerated femoral hernia: POD#4 small bowel resection and repair femoral hernia. Overall improved, awaiting return of bowel funciton. Appreciate medicine, pulm, cards historian research assistant with patient clamp ng, check residual at 4 hours, if less than 150 may remove. OOBTC, ambulate, IS PT consult keep npo for now not in afib/flutter, hold therapeutic a/c for now Subjective POD#4 small bowel resection and repair right femoral hernia for strangulated femoral hernia. She was volume down and septic post op along with likely right sided heart failure requiring significant. Improved over weekend, transferred to [facility]. Had episode of aflutter which is reolved. Currently being diuresed. Minimal pain. May have passed gas, anxious to get NG tube out. No nausea. Physical Exam 2 Vital Signs (Past 24 Hours): Last Vital Signs Temp 36.4 C L 05/19/18 15:50 Pulse 77 05/19/18 15:50 Resp 20 05/19/18 15:50 BP 136/73 05/19/18 15:50 Pulse Ox 92 05/19/18 15:50 Constitutional: WD/WN, vitals as above + ill appearing Gastrointestinal (Abdomen): incision with jillian, no e/o infection. abd soft , appropriately ttp. NG tube with 80cc output. Results & Data Laboratory Results Laboratory Results - last 24 hr 05/19/18 05/19/18 06:18 06:18 WBC 7.59 RBC 3.28 L Hgb 10.4 L Hct 30.8 L MCV 93.9 MCH 31.7 MCHC 33.8 RDW Std Deviation 50.1 H RDW Coeff of [place] 14.6 H Plt Count 91 L MPV 11.1 H Platelet Estimate Decreased Sodium 145 Potassium 3.0 L Chloride 106 Carbon Dioxide 30 Anion Gap 9.0 BUN 24 H Creatinine 1.00 Est Cr Clr Drug Dosing 56.0 Est GFR ( Amer) 69.0 Est GFR (Non-Af Amer) 59.5 BUN/Creatinine Ratio 24.6 H Glucose 111 H Calcium 8.9 Phosphorus 3.3 Magnesium 1.9
[2018-05-19] MEDS: CLOTRIMAZOLE 10 MG TROCHE BUCCAL SCH ×2 (17:53→22:30)
[2018-05-19] MEDS: HYDROCORTISONE SOD 25 MG in SYRINGE 0 ML IV SCH (22:30)
[2018-05-20] MEDS: HYDROmorphone INJ 1 MG/ML SYRINGE IV PRN ×2 (00:27→08:43)
[2018-05-20] MEDS: AMIODARONE / D5W 360 MG/200 ML BAG IV SCH ×3 (01:33→23:00)
[2018-05-20] MEDS: METOPROLOL TARTRATE 1 MG/ML VIAL IV SCH ×4 (06:23→23:34)
[2018-05-20] MEDS: HYDROCORTISONE SOD 25 MG in SYRINGE 0 ML IV SCH ×3 (06:23→21:17)
[2018-05-20] MEDS: CLOTRIMAZOLE 10 MG TROCHE BUCCAL SCH ×5 (06:27→22:33)
[2018-05-20] MEDS: PIPERACILLIN/TAZOBACTAM 4.5 GM in DEXTROSE 5% 100 ML IV SCH ×3 (07:54→23:34)
[2018-05-20] MEDS: FOLIC ACID 1 MG in SYRINGE 9.8 ML IV SCH (07:54)
[2018-05-20] MEDS: HEPARIN SOD 5,000 UNIT/0.5 ML VIAL SQ SCH ×2 (07:55→21:17)
[2018-05-20 07:59] LABS: Calcium 9.5 mg/dl (8.5-10.1); Creatinine Clr Calc Pharmacy 61.6 ml/min; Est GFR (African American) 77.3; Est GFR (Non-African American) 66.7
[2018-05-20] MEDS: PANTOprazole 40 MG in SYRINGE 0 ML IV SCH (11:34)
--- NOTE | 2018-05-20 12:09 | Progress Note ---
DATE: 05/20/2018 TIME: 11:45 a.m. SUBJECTIVE: The patient is feeling a little better. The NG tube is out and that has helped her feel better. She is very thirsty, but is still n.p.o. She states her breathing is the same or a little better today. She denies significant shortness of breath. She is sitting up in a chair. OBJECTIVE: GENERAL: The patient was comfortable at rest. VITAL SIGNS: Temperature 36.4. Cardiac rate is 70. Rhythm is regular. Blood pressure 130/77. LUNGS: Lung francois revealed mild wheeze on inspiration both right and left posteriorly. Saturation 96% on 4 liters. Respiratory rate 18. ABDOMEN: Examination of the abdomen reveals faint bowel sounds. The abdomen was fairly soft. EXTREMITIES: Showed no cyanosis, clubbing or edema. LABORATORY DATA: Electrolytes show sodium 145, potassium 3, chloride 104, bicarb 36. BUN 29, creatinine 0.91. IMPRESSION: 1. Bilateral lung infiltrates. 2. Suspect aspiration pneumonia. 3. Chronic obstructive pulmonary disease. 4. Status post right incarcerated inguinal hernia. COMMENTS AND RECOMMENDATIONS: The patient seems to be doing better than expected considering how her CAT scan had appeared from 05/18/2018. Would continue with current treatment.
--- NOTE | 2018-05-20 13:27 | Surgery Progress Note ---
Date of Service May 20, 2018 Assessment & Plan (1) Complicated unilateral incarcerated femoral hernia: POD #5 small bowel resection and repair femoral hernia. Overall improved , awaiting return of bowel funciton. Appreciate renea tavares cards placement assistant with patient NG tube removed- pt believes that she did pass some flatus, denies BM Would like to try clear liquids- reminded pt to go slow with PO intake. Encouraged ambulation. Estrada catheter still in place- will wait for hospitalist, renea and card to ok estrada removal. POD#4 small bowel resection and repair femoral hernia. Overall improved, awaiting return of bowel funciton. Appreciate renea tavares cards placement assistant with patient clamp ng, check residual at 4 hours, if less than 150 may remove. OOBTC, ambulate, IS PT consult keep npo for now not in afib/flutter, hold therapeutic a/c for now Supervising Physician Co-Signing Physician Notes POD #5, doing well. May have passed some gas, NG tube removed yesterday after 4 hours of clamping and minimal residual. Will start on clears, advance to low fiber/residue diet as tolerated. Ambulate, okay from surgery perspective to remove Estrada but will check with other services as patient continues to be diuresed. Appreciate consulting services assistance with the care of this patient. Subjective POD#5 small bowel resection and repair right femoral hernia for strangulated femoral hernia. She was volume down and septic post op along with likely right sided heart failure requiring significant. Doing well today- NG tube removed yesterday evening. Denies nausea, denies bloating feeling. Eager to start liquids. Reports that she ambulated a bit in the room PT evaluated pt. Physical Exam 2 Vital Signs (Past 24 Hours): Last Vital Signs Temp 36.4 C L 05/20/18 11:37 Pulse 67 05/20/18 11:37 Resp 18 05/20/18 11:37 BP 130/77 05/20/18 11:37 Pulse Ox 95 05/20/18 11:37 Gastrointestinal (Abdomen): Inspection/Auscultation: + abdominal surgical incision (clean, dry, intact. ) Percussion/Palpation: + abdomen tender (at surgical incisions. ) and abdomen soft
[2018-05-20] MEDS ORDERED: POTASSIUM PHOS 3 MMOL/1 ML INFUSION IV STA (14:43)
[2018-05-20] MEDS ORDERED: POTASSIUM PHOSPHATE 21 MMOL in SODIUM CHLORIDE 0.9% 500 ML IV ONE (15:15)
[2018-05-20] MEDS: POTASSIUM CHLORIDE / WTR 10 MEQ/100 ML PLCT IV SCH ×4 (15:24→19:18)
[2018-05-20] MEDS: OXYCODONE/ACETAMINOPHEN 5mg/325mg TAB PO PRN ×2 (15:39→22:32)
--- NOTE | 2018-05-20 16:37 | Hospitalist Progress Note ---
Date of Service May 20, 2018 Assessment & Plan (1) Small bowel obstruction: Emergent bowel resection with release of incarcerated hernia 05/15/2017 Associated with complicated incarcerated right inguinal hernia Bowel movement last night Diet advanced to liquids today No significant abdominal pain Dressings dry and intact Further management per surgery (2) Atrial flutter: Continue amiodarone drip. Change to p.o. when patient is full diet Cardiology following. Appreciate their input. Holding on anticoagulation secondary to patient being in normal sinus rhythm and rate controlled at this time Patient does have a high CHADS score and should be considered for anticoagulation per cardiology Telemetry currently with normal sinus rhythm TSH normal Continue to replete electrolytes Continue to monitor on telemetry CTA negative for pulmonary embolus No neurological deficits (3) Electrolyte imbalance: Magnesium is repleted Will give 21 mmol of potassium phosphate IV We will also give 40 mEq of potassium chloride IV Follow serial labs Continue on telemetry When patient is able to take solids, consider oral potassium replacement (4) Tobacco use: Again discussed need for complete tobacco abstention Patient refusing NicoDerm patch Patient is committed to quitting smoking completely (5) GERD (gastroesophageal reflux disease): Continue pantoprazole (6) CAD (coronary artery disease): Previous history of DE Cardiac catheterization with occlusion of single vessel with good collateralization Reserved EF Continue low-dose Lopressor IV every 6 hours Troponin is negative Continue to follow on telemetry (7) Hypertension: Hemodynamically stable She did have some hypotension postoperatively Patient continues on hydrocortisone 25 mg IV every 8 hours for postoperative shock No evidence of cardiogenic shock Consider discontinuing hydrocortisone -no cortisol levels were checked initially (8) DVT prophylaxis: Heparin 5000 units subcutaneously twice daily Begin to increase ambulation when tolerated Please refer to Dr. Bai's addendum for further recommendations. Supervising Physician Co-Signing Physician Notes PA Supervision Note: I did not personally see or examine the patient today, but I verified all feliciano points of HENRIETTA Ribeiro's assessment and plan with the following exceptions/additions: None Subjective This is a pleasant 63-year-old female who was admitted for abdominal pain and found to have incarcerated hernia in the right groin as well as a bowel obstruction. She went emergently to the operating room on 05/15/2018 and developed postoperative atrial fibrillation with RVR. She has been on amiodarone drip inasmuch as she has been n.p.o. She is in normal sinus rhythm at this time and is been so without complication. She is currently rate controlled and has no chest pain or tightness. She did have a bowel movement last night. Diet was advanced by Dr. Mccall to a liquid diet which she is tolerating well. She does continue to have difficulty with electrolyte imbalance but is tolerating repletion. She has no nausea or vomiting. No fever. No sweats or rigors. Dressings have been dry and intact per nursing. The patient has no other acute complaints. Physical Exam Vital Signs (Past 24 Hours): Last Vital Signs Temp 36.4 C L 05/20/18 11:37 Pulse 76 05/20/18 16:00 Resp 18 05/20/18 15:36 BP 120/74 05/20/18 15:36 Pulse Ox 94 05/20/18 15:36 Physical Exam: GENERAL : No acute distress. Patient sitting in bedside chair EYES: No icterus, gaze conjugate. NOSE: No evidence of epistaxis. Nasal cannula is in place and secure MOUTH: No lesions or candidiasis. NECK: Supple. LUNGS: CTA B/L, no wheezes, rales or rhonchi. Patient has somewhat decreased breath sounds but no significant pain with deep inspiration. Incentive spirometry and flutter valve are at bedside. HEART: Regular, rate controlled. Telemetry shows normal sinus rhythm ABDOMEN: Soft, NT, ND, BS Present. EXTREMITIES: No LE edema, pedal pulses intact NEURO: A&OX3 Results & Data Laboratory Results Abnormal lab results 05/20/18 Range/Units 06:43 Potassium 3.0 L (3.5-5.1) mmol/L Carbon Dioxide 36 H (21-32) mmol/L BUN 29 H (7-18) mg/dl BUN/Creatinine Ratio 32.0 H (10-20) Glucose 111 H (70-99) mg/dl Phosphorus 2.0 L D (2.5-4.9) mg/dl Diagnostic Findings CT angio chest PE protocol CLINICAL HISTORY: 63 years-old Female presenting with respiratory failure, bilateral infiltrates, altered mental status, clinical concern for pulmonary embolus. TECHNIQUE: Multidetector CT angiography of the chest was performed after administration of intravenous contrast. 3-D volumetric and/or maximum intensity projection (MIP) images were subsequently reconstructed for review. IV contrast: 120 mL of Optiray 320. One or more dose lowering techniques were used consistent with the principles of ALARA (as low as reasonably achievable), including automatic exposure control, mA or kV adjustment to individual patient size, and/or use of iterative reconstruction. COMPARISON: Chest x-ray from earlier today. CT DOSE (mGy.cm): The estimated cumulative dose is 446.05 mGy.cm. FINDINGS: Physician Coder topogram: Diffuse pulmonary opacities. Cholecystectomy clips. Nasogastric tube terminates in the stomach fundus. Pulmonary vasculature: The study is suboptimal for the assessment of the pulmonary vascular tree secondary to respiratory motion artifact. No filling defect within the pulmonary arteries to suggest embolus. Main pulmonary artery mildly enlarged measuring 3.5 cm in diameter. No flattening of the interventricular septum. No intracardiac filling defect. No reflux of contrast into the hepatic veins. Remaining chest: Soft tissues: Normal thyroid and thoracic inlet. No axillary, supraclavicular, mediastinal, or hilar lymphadenopathy. Normal aorta. Multichamber enlargement of the heart. Coronary artery calcification. Trace bilateral pleural effusions. Nasogastric tube terminates in the stomach. Lungs and airways: No pneumothorax. Central airways patent allowing for the expiratory phase of respiration, however, narrowing of lobar, segmental, and subsegmental airways bilaterally. Extensive interlobular septal thickening. Patchy groundglass and more solid consolidation with an upper lobe predominance though affecting all 5 lobes. Dependent atelectasis also noted in the lower lobes. Pulmonary arteries are significantly enlarged relative to adjacent bronchi. Musculoskeletal: Degenerative changes of the spine. IMPRESSION: 1. No evidence of pulmonary embolus. 2. Extensive bilateral pulmonary infiltrates affecting all 5 lobes. Differential considerations include multifocal pneumonia, pulmonary edema, or, less likely, hemorrhage. 3. Cardiomegaly with volume overload/congestive change. 4. Evidence of pulmonary artery hypertension. 5. Trace bilateral pleural effusions. 6. Appropriately positioned nasogastric tube. Electronically signed by: Sina Oliver M.D. 05/18/2018 8:06 PM (1) CAD (coronary artery disease) Associated angina: without angina Coronary Disease-Associated Artery/Lesion type: [place] artery [place] vs. transplanted heart: [place] heart Qualified Code(s): I25.10 - Atherosclerotic heart disease of [place] coronary artery without angina pectoris (2) Atrial flutter Atrial flutter type: unspecified Qualified Code(s): I48.92 - Unspecified atrial flutter (3) GERD (gastroesophageal reflux disease) Esophagitis presence: without esophagitis Qualified Code(s): K21.9 - Gastro- esophageal reflux disease without esophagitis (4) Hypertension Hypertension type: essential hypertension Qualified Code(s): I10 - Essential (primary) hypertension
[2018-05-21] MEDS: METOPROLOL TARTRATE 1 MG/ML VIAL IV SCH (05:57)
[2018-05-21] MEDS: HYDROCORTISONE SOD 25 MG in SYRINGE 0 ML IV SCH (05:59)
[2018-05-21] MEDS: CLOTRIMAZOLE 10 MG TROCHE BUCCAL SCH ×5 (06:00→23:10)
[2018-05-21] MEDS: OXYCODONE/ACETAMINOPHEN 5mg/325mg TAB PO PRN ×4 (06:18→23:48)
[2018-05-21 07:35] LABS: Creatinine Clr Calc Pharmacy 76.6 ml/min; Est GFR (African American) 100.9
[2018-05-21] MEDS: HYDROmorphone INJ 1 MG/ML SYRINGE IV PRN (08:02)
[2018-05-21] MEDS: HEPARIN SOD 5,000 UNIT/0.5 ML VIAL SQ SCH ×3 (08:03→21:08)
[2018-05-21] MEDS: FOLIC ACID 1 MG in SYRINGE 9.8 ML IV SCH (08:04)
[2018-05-21] MEDS: PIPERACILLIN/TAZOBACTAM 4.5 GM in DEXTROSE 5% 100 ML IV SCH ×3 (09:26→23:11)
[2018-05-21 09:39] LABS: BUN Creatinine Ratio 31.9 (10-20); Calcium 8.7 mg/dl (8.5-10.1); Creatinine Clr Calc Pharmacy 78.8 ml/min; Est GFR (African American) 104.3; Magnesium 1.8 mg/dl (1.8-2.4)
[2018-05-21] MEDS ORDERED: POTASSIUM PHOS 3 MMOL/1 ML INFUSION IV STA (09:47)
[2018-05-21] MEDS ORDERED: POTASSIUM CHLORIDE 20 MEQ TABCR PO STA (09:47)
[2018-05-21 09:56] LABS: Basophils # (auto) 0.01 K/uL (0-0.2); Basophils % (auto) 0.1 %; Eosinophils # (auto) 0.14 K/uL (0-0.5); Eosinophils % (auto) 1.4 %; Hematocrit (blood only) 32.3 % (37-47); Hemoglobin 10.8 g/dL (12.0-16.0); Immature Granulocytes # (auto) 0.08 K/uL (0.00-0.02); Immature Granulocytes % (auto) 0.8 %; Lymphocytes # (auto) 0.97 K/uL (1.2-3.4); Lymphocytes % (auto) 9.9 %; Mean Corpuscular Hgb Conc 33.4 g/dL (32-36); Mean Corpuscular Volume 94.4 fL (80-100); Mean Platelet Volume 11.5 fL (7.4-10.4); Monocytes % (auto) 7.2 %; Neutrophils # (auto) 7.86 K/uL (1.4-6.5); Neutrophils % (auto) 80.6 %; Platelet Count 141 K/uL (130-400); RDW Standard Deviation 51.5 fL (36.4-46.3); Red Blood Count 3.42 M/uL (4.2-5.4); White Blood Count 9.76 K/uL (4.8-10.8)
[2018-05-21] MEDS ORDERED: MAGNESIUM SULFATE / D5W 1 GM/100 ML BAG IV ONE (10:30)
[2018-05-21] MEDS ORDERED: POTASSIUM PHOSPHATE 21 MMOL in SODIUM CHLORIDE 0.9% 500 ML IV ONE (10:45)
[2018-05-21] MEDS ORDERED: FUROSEMIDE 20 MG in SYRINGE 0 ML IV ONE (11:00)
--- NOTE | 2018-05-21 11:02 | Hospitalist Progress Note ---
Date of Service May 21, 2018 Assessment & Plan (1) Small bowel obstruction: Emergent bowel resection with release of incarcerated hernia 05/15/2017 Associated with complicated incarcerated right inguinal hernia NGT out Moving bowels, lila liquids diet Further management per surgery -pain control as needed -encouraged ambulation (2) Atrial flutter: Remains in NSR for several days now Change amiodarone gtt to po today as per Cardio Cardiology following. Appreciate their input. Holding on anticoagulation secondary to patient being in normal sinus rhythm and rate controlled at this time--> will look into cost of NOAC prior to discharge Patient does have a high CHADS score and should be considered for anticoagulation per cardiology TSH normal Continue to replete electrolytes as needed Continue to monitor on telemetry CTA negative for pulmonary embolus (3) Electrolyte imbalance: Hypokalemia, Hypomagnesemia, Hypophosphatemia replace all with po and IV lytes today -follow BMP, Mag, Phos (4) Tobacco use: - discussed need for smoking cessation Patient refusing NicoDerm patch Patient is committed to quitting smoking completely (5) GERD (gastroesophageal reflux disease): Continue pantoprazole (6) CAD (coronary artery disease): Previous history of [place] Cardiac catheterization with occlusion of single vessel with good collateralization Reserved EF change Lopressor IV every 6 hours to po metoprolol today Troponin is negative Continue to follow on telemetry (7) Hypertension: Hemodynamically stable She did have some hypotension postoperatively Patient continues on hydrocortisone 25 mg IV every 8 hours for postoperative shock--> dc IV HC today and follow BPs (8) Oral candidiasis: Improved -continue clotrimazole trouches (9) Acute on chronic diastolic (congestive) heart failure: The patient has been markedly positive from a volume standpoint since admission in the face of her critical illness, shock, surgery, etc. Fluids were stopped, and she has diuresed somewhat since then w/ multiple doses of IV lasix. Will give another 20mgIV now as weight same since yesterday and still requiring O2 Continue to diurese as needed day to day Check daily labs. Echo reviewed. Cardiology consult & assistance appreciated. (10) Acute respiratory failure with hypoxia: Multifactorial including ? aspiration pneumonia and acute/chronic diastolic CHF. Since she is responding to diuretics I doubt ARDS. -continue supplemental O2 and wean as able to Cont diuresis, abx with Zosyn for aspiration PNA coverage, and supportive care. Appreciate pulmonary consultation. Bronch offered to patient but she declined. (11) Folic acid deficiency: -continue folic acid but change to po etiology?? very odd that patient had profoundly low magnesium, potassium at admission and also folate deficiency. suggests malnutrition or intestinal absorption issue. again denies alcohol abuse. (12) Thrombocytopenia: etiology? sepsis induced? Improved now to 141k Follow CBC (13) COPD (chronic obstructive pulmonary disease): not in exacerbation at this time. incentive elsa. No nebs due to thought that it caused A flutter (14) DVT prophylaxis: Heparin 5000 units subcutaneously tid Begin to increase ambulation when tolerated Dispo-remain on tele, needs PT/OT, remove Frederick Subjective Pt feeling better, no cough, still on O2. Is lila clears, having BMs and passing flatus Tele remains in NSR Has not been ambulating much Review of Systems All systems reviewed & are unremarkable except as noted in HPI & below Physical Exam Vital Signs (Past 24 Hours): Last Vital Signs Temp 36.9 C 05/21/18 08:21 Pulse 105 H 05/21/18 08:21 Resp 19 05/21/18 08:21 BP 143/81 H 05/21/18 08:21 Pulse Ox 88 L 05/21/18 08:21 Constitutional: WD/WN, vitals as above Eyes: PERRL, conjunctivae normal, anicteric sclerae ENMT: Mouth: + oropharynx abnormality (coating on tongue much improved) Neck: trachea midline, no thyromegaly Respiratory: normal respiratory effort; does not use accessory muscles Auscultation: + diminished lung sounds (in left upper and middle lung francois); no crackles and no wheezes Cardiovascular: Rate/Rhythm: regular rate and regular rhythm Heart Sounds: + murmur Extremities: + edema (trace pitting edema legs bilat) Gastrointestinal (Abdomen): Inspection/Auscultation: normal bowel sounds; + abdomen abnormal to inspection (incision with dressing with serosang fluid inferior portion of dressing) Percussion/Palpation: abdomen soft; abdomen nontender Musculoskeletal: Extremities: extremities normal to inspection; no cyanosis and no clubbing Skin: no rashes, warm and dry Neurologic: moves all extremities and awake; no focal motor deficits Psychiatric: Orientation: alert and oriented x 3 Affect: euthymic affect Genitourinary: Frederick catheter in place Results & Data Laboratory Results 05/21/18 05/21/18 05/21/18 Range/Units 08:53 08:53 06:34 WBC 9.76 (4.8-10.8) K/uL RBC 3.42 L (4.2-5.4) M/uL Hgb 10.8 L (12.0-16.0) g/dL Hct 32.3 L (37-47) % MCV 94.4 (80-100) fL MCH 31.6 (25-34) pg MCHC 33.4 (32-36) g/dL RDW Std Deviation 51.5 H (36.4-46.3) fL RDW Coeff of Tigre 15.0 H (11.5-14.5) % Plt Count 141 (130-400) K/uL MPV 11.5 H (7.4-10.4) fL Immature Gran % (Auto) 0.8 % Neut % (Auto) 80.6 % Lymph % (Auto) 9.9 % [place] % (Auto) 7.2 % Eos % (Auto) 1.4 % Baso % (Auto) 0.1 % Immature Gran # (Auto) 0.08 H (0.00-0.02) K/uL Neut # (Auto) 7.86 H (1.4-6.5) K/uL Lymph # (Auto) 0.97 L (1.2-3.4) K/uL [place] # (Auto) 0.70 H (0.11-0.59) K/uL Eos # (Auto) 0.14 (0-0.5) K/uL Baso # (Auto) 0.01 (0-0.2) K/uL Sodium 145 (136-145) mmol/L Potassium 3.0 L (3.5-5.1) mmol/L Chloride 104 (98-107) mmol/L Carbon Dioxide 36 H (21-32) mmol/L Anion Gap 5.0 (3-11) BUN 23 H (7-18) mg/dl Creatinine 0.71 0.73 (0.6-1.2) mg/dl Est Cr Clr Drug Dosing 78.8 76.6 ml/min Est GFR ( Amer) 104.3 100.9 Est GFR (Non-Af Amer) 90.0 87.0 BUN/Creatinine Ratio 31.9 H (10-20) Glucose 127 H (70-99) mg/dl Calcium 8.7 (8.5-10.1) mg/dl Phosphorus 2.0 L (2.5-4.9) mg/dl Magnesium 1.8 (1.8-2.4) mg/dl (1) CAD (coronary artery disease) Associated angina: without angina Coronary Disease-Associated Artery/Lesion type: [place] artery [place] vs. transplanted heart: [place] heart Qualified Code(s): I25.10 - Atherosclerotic heart disease of [place] coronary artery without angina pectoris (2) Atrial flutter Atrial flutter type: unspecified Qualified Code(s): I48.92 - Unspecified atrial flutter (3) COPD (chronic obstructive pulmonary disease) COPD type: unspecified COPD Qualified Code(s): J44.9 - Chronic obstructive pulmonary disease, unspecified (4) GERD (gastroesophageal reflux disease) Esophagitis presence: without esophagitis Qualified Code(s): K21.9 - Gastro- esophageal reflux disease without esophagitis (5) Hypertension Hypertension type: essential hypertension Qualified Code(s): I10 - Essential (primary) hypertension
[2018-05-21] MEDS: METOPROLOL SUCC 25MG EXT REL TAB PO SCH (11:43)
[2018-05-21] MEDS: AMIODARONE 200 MG TAB PO SCH (11:43)
[2018-05-21] MEDS: PANTOprazole 40 MG in SYRINGE 0 ML IV SCH (12:04)
[2018-05-21] MEDS: POTASSIUM CHLORIDE / WTR 10 MEQ/100 ML PLCT IV SCH ×2 (12:06→14:06)
--- NOTE | 2018-05-21 12:30 | Cardiology Progress Note ---
Date of Service May 21, 2018 Assessment & Plan (1) Atrial flutter: Patient is doing well without recurrence of her atrial flutter. Again, unclear if this is related to her acute illness although she obviously has the substrate for atrial flutter likely on the basis of primary lung disease. I changed her from intravenous to oral amiodarone. My intention is to continue this for approximately 1 month. At that time she should follow up in the clinic for a discussion regarding continued amiodarone use. Additionally, given her risk factors for thromboembolic events, I would advocate systemic anticoagulation with either Eliquis or Xarelto provided the surgeons feel it is safe at this point to start anticoagulation. (2) CAD (coronary artery disease): She has a history of LAD occlusion and collateralization. Despite recent hypotension, tachycardia and use of pressor agents she has not developed elevated biomarkers. This suggests good perfusion overall. She has been maintained on high-dose atorvastatin and beta blockade. Systemic anticoagulation would be a good substitute for daily aspirin should she elect to start. (3) Tobacco use: Absent in the hospital. Encouraged to continue abstinence upon discharge. (4) Atrial tachycardia, paroxysmal: No recurrence. Continue amiodarone. Subjective Patient claims to be feeling better today. She is tolerating a liquid diet. She has been minimally ambulatory around the orbit is anxious to eat more and go home. Physical Exam Vital Signs (Past 24 Hours): Last Vital Signs Temp 36.6 C 05/21/18 11:42 Pulse 74 05/21/18 11:42 Resp 19 05/21/18 11:42 BP 108/67 05/21/18 11:42 Pulse Ox 94 05/21/18 11:42 Physical Exam: She is alert and oriented x3. Mood affect appear normal. She answered all questions appropriately. HEENT: Sclerae are anicteric. Pupils are equal and reactive to light and accommodation. Extraocular movements were intact. Neuro: Cranial nerves intact Neck: Examination of the submandibular region did not reveal any significant lymphadenopathy. Carotids are palpable bilaterally and free of bruits on au scultation. Lungs: Lungs are clear to auscultation bilaterally. There are no rales wheezes or rhonchi. She has normal respiratory effort without use of accessory muscles. There is normal pulmonary excursion. Cardiac: The rhythm was regular. S1 and S2 were normal. There are no murmurs on examination. The PMI was not markedly displaced on palpation. Skin: There are no rashes noted on examination today. Results & Data Laboratory Results Abnormal Lab Results 05/21/18 05/21/18 05/21/18 06:34 08:53 08:53 WBC 9.76 RBC 3.42 L Hgb 10.8 L Hct 32.3 L MCV 94.4 MCH 31.6 MCHC 33.4 RDW Std Deviation 51.5 H RDW Coeff of Tigre 15.0 H Plt Count 141 MPV 11.5 H Immature Gran % (Auto) 0.8 Neut % (Auto) 80.6 Lymph % (Auto) 9.9 [place] % (Auto) 7.2 Eos % (Auto) 1.4 Baso % (Auto) 0.1 Immature Gran # (Auto) 0.08 H Neut # (Auto) 7.86 H Lymph # (Auto) 0.97 L [place] # (Auto) 0.70 H Eos # (Auto) 0.14 Baso # (Auto) 0.01 Sodium 145 Potassium 3.0 L Chloride 104 Carbon Dioxide 36 H Anion Gap 5.0 BUN 23 H Creatinine 0.73 0.71 Est Cr Clr Drug Dosing 76.6 78.8 Est GFR ( Amer) 100.9 104.3 Est GFR (Non-Af Amer) 87.0 90.0 BUN/Creatinine Ratio 31.9 H Glucose 127 H Calcium 8.7 Phosphorus 2.0 L Magnesium 1.8 ECG Additional Comments: Telemetry demonstrates normal sinus rhythm. No recurrent atrial flutter (1) Atrial flutter Atrial flutter type: unspecified Qualified Code(s): I48.92 - Unspecified atrial flutter (2) CAD (coronary artery disease) Coronary Disease-Associated Artery/Lesion type: [place] artery [place] vs. transplanted heart: [place] heart Associated angina: without angina Qualified Code(s): I25.10 - Atherosclerotic heart disease of [place] coronary artery without angina pectoris
--- NOTE | 2018-05-21 13:04 | Surgery Progress Note ---
Date of Service May 21, 2018 Assessment & Plan (1) Complicated unilateral incarcerated femoral hernia: POD #6 small bowel resection and femoral hernia repair for strangulate of femoral hernia, doing well, bowel function is returning. Advance to full liquids Advance diet as tolerated to low residual/low fiber Abdominal binder Encourage ambulation Appreciate other services assistance with this patient Present on Admission?: Yes Subjective 63-year-old female POD #6 small bowel resection and repair of strangulated femoral hernia. Had 2 soft but formed bowel movements overnight. Tolerated c lear liquids, though she is not very hungry. Denies any nausea or vomiting. She has some drainage from midline incision. She is down to 2 L on oxygen Physical Exam Vital Signs (Past 24 Hours): Last Vital Signs Temp 36.6 C 05/21/18 11:42 Pulse 74 05/21/18 11:42 Resp 19 05/21/18 11:42 BP 108/67 05/21/18 11:42 Pulse Ox 94 05/21/18 11:42 Constitutional: WD/WN, vitals as above Gastrointestinal (Abdomen): Fair amount of serosanguineous drainage from midline incision, no evidence of infection. Right groin incision with serosanguineous drainage, no evidence of infection. Abdomen soft, appropriately tender to palpation, positive bowel sounds. Results & Data Laboratory Results Laboratory Results - last 24 hr 05/21/18 05/21/18 05/21/18 06:34 08:53 08:53 WBC 9.76 RBC 3.42 L Hgb 10.8 L Hct 32.3 L MCV 94.4 MCH 31.6 MCHC 33.4 RDW Std Deviation 51.5 H RDW Coeff of Tigre 15.0 H Plt Count 141 MPV 11.5 H Immature Gran % (Auto) 0.8 Neut % (Auto) 80.6 Lymph % (Auto) 9.9 [place] % (Auto) 7.2 Eos % (Auto) 1.4 Baso % (Auto) 0.1 Immature Gran # (Auto) 0.08 H Neut # (Auto) 7.86 H Lymph # (Auto) 0.97 L [place] # (Auto) 0.70 H Eos # (Auto) 0.14 Baso # (Auto) 0.01 Sodium 145 Potassium 3.0 L Chloride 104 Carbon Dioxide 36 H Anion Gap 5.0 BUN 23 H Creatinine 0.73 0.71 Est Cr Clr Drug Dosing 76.6 78.8 Est GFR ( Amer) 100.9 104.3 Est GFR (Non-Af Amer) 87.0 90.0 BUN/Creatinine Ratio 31.9 H Glucose 127 H Calcium 8.7 Phosphorus 2.0 L Magnesium 1.8
--- NOTE | 2018-05-21 15:24 | Progress Note ---
DATE: 05/21/2018 PULMONARY PROGRESS NOTE TIME: 2:40 p.m. SUBJECTIVE: The patient is stable. She feels that her breathing is about the same. She has not been doing very much activity. She has been getting out of bed. Her saturations at times have been low according to her nurse. She has been down as low as 2 liters on the oxygen. She is not coughing to any significant degree. OBJECTIVE: GENERAL: The patient appeared comfortable at rest. VITAL SIGNS: Temperature 36.6. She has not had any fevers. Heart rate 74 per minute. Rhythm is regular. Blood pressure 108/67. LUNGS: Lung francois revealed mild rales posteriorly. Respiratory rate 18. Saturation 94% on nasal cannula. EXTREMITIES: Showed no cyanosis, clubbing or edema. LABORATORY DATA: White count today 9.76. Hemoglobin 10.8. Platelets 141,000. Two days ago, platelets were 91,000. Electrolytes show sodium 145, potassium 3, chloride 104, bicarb 36. BUN is 23 with a creatinine 0.71. Phosphorus was low at 2.0. IMPRESSION: 1. Bilateral infiltrates, likely secondary to aspiration pneumonia. 2. Status post repair of incarcerated inguinal hernia. COMMENTS AND RECOMMENDATIONS: We will recheck a chest x-ray to see if her infiltrates have improved. Would continue with the Zosyn she is currently on. Her CO2 on the chemistry is quite high at 36. This would suggest some degree of CO2 retention. This has increased compared with the CO2 on 05/17 of only 27. If it progresses, may need to consider doing a blood gas.
[2018-05-22] MEDS: HEPARIN SOD 5,000 UNIT/0.5 ML VIAL SQ SCH ×3 (06:16→21:25)
[2018-05-22] MEDS: CLOTRIMAZOLE 10 MG TROCHE BUCCAL SCH ×5 (06:16→22:31)
[2018-05-22] MEDS: OXYCODONE/ACETAMINOPHEN 5mg/325mg TAB PO PRN ×4 (06:38→21:24)
[2018-05-22 07:13] LABS: Hematocrit (blood only) 33.7 % (37-47); Hemoglobin 11.1 g/dL (12.0-16.0); Mean Corpuscular Hgb Conc 32.9 g/dL (32-36); Mean Corpuscular Volume 94.9 fL (80-100); Platelet Count 169 K/uL (130-400); RDW Coefficient of Variation 15.1 % (11.5-14.5); RDW Standard Deviation 52.6 fL (36.4-46.3); Red Blood Count 3.55 M/uL (4.2-5.4); White Blood Count 12.61 K/uL (4.8-10.8)
[2018-05-22 07:34] LABS: BUN Creatinine Ratio 27.1 (10-20); Calcium 8.9 mg/dl (8.5-10.1); Est GFR (African American) 107.1; Est GFR (Non-African American) 92.4; Magnesium 1.8 mg/dl (1.8-2.4); Potassium 3.2 mmol/L (3.5-5.1)
[2018-05-22 07:35] LABS: Phosphorus 1.8 mg/dl (2.5-4.9)
[2018-05-22] MEDS ORDERED: POTASSIUM CHLORIDE 20 MEQ TABCR PO STA (08:30)
[2018-05-22] MEDS ORDERED: FUROSEMIDE 20 MG in SYRINGE 0 ML IV ONE ×2 (08:36→15:00)
--- NOTE | 2018-05-22 08:50 | XRay Report ---
XR chest 2V routine CLINICAL HISTORY: lung infiltrates COMPARISON STUDY: Chest radiograph and chest CT May 18, 2018. FINDINGS: There are trace bilateral pleural effusions. There is no pneumothorax. Cardiomegaly is unch anged. Bilateral airspace opacities have markedly. Since exam of May 18, 2018. There is no pneum othorax. Nasogastric tube has been removed. There are mild residual opacities, predominantly linear i n configuration. IMPRESSION: 1. Significant interval improvement in bilateral airspace opacities. 2. Trace bilateral pleural effusions. 3. Cardiomegaly. Electronically signed by: Juve Bustamante M.D. 05/22/2018 8:48 AM
[2018-05-22] MEDS: PIPERACILLIN/TAZOBACTAM 4.5 GM in DEXTROSE 5% 100 ML IV SCH ×2 (08:58→16:13)
[2018-05-22] MEDS: PANTOprazole 40 MG TAB PO SCH (09:09)
[2018-05-22] MEDS: AMIODARONE 200 MG TAB PO SCH (09:09)
[2018-05-22] MEDS: FOLIC ACID 1 MG TAB PO SCH (09:10)
[2018-05-22] MEDS: METOPROLOL SUCC 25MG EXT REL TAB PO SCH (09:10)
--- NOTE | 2018-05-22 13:15 | Surgery Progress Note ---
Date of Service May 22, 2018 Assessment & Plan (1) Complicated unilateral incarcerated femoral hernia: POD #7 small bowel resection and femoral hernia repair for strangulated femoral hernia, doing well, good return of bowel function. Change in character of drainage from lower midline incision, we will remove the jillian and treat with wet-to-dry dressings. Advance diet to low residual/low fiber Will remove jillian from lower portion of incision, pack with gauze Wet-to-dry dressing changes twice daily Encourage ambulation Appreciate other services assistance with this patient Consult social work for home health care Continue to wean oxygen Patient is approaching discharge from general surgery standpoint, appreciate medicine's assistance and recommendations regarding discharge planning, including oxygen therapy at home Subjective 63-year-old female POD #7 small bowel resection and repair of strangulated femoral hernia. She is tolerating full liquids, passing gas and having bowel movements. She still has some drainage from midline incision, though she thinks this is decreasing. She is still requiring 2 L on oxygen Physical Exam Vital Signs (Past 24 Hours): Last Vital Signs Temp 36.5 C 05/22/18 10:58 Pulse 74 05/22/18 10:58 Resp 18 05/22/18 10:58 BP 114/72 05/22/18 10:58 Pulse Ox 92 05/22/18 10:58 Constitutional: WD/WN, vitals as above average body habitus; no acute distress Gastrointestinal (Abdomen): Incisions with jillian in place. The serosanguineous drainage from yesterday from midline incision now appears to have changed slightly in character, and may be somewhat purulent. No erythema or induration. Right groin incision with jillian in place, no evidence of infection. Abdomen appropriately tender, nondistended, positive bowel sounds. Results & Data Laboratory Results Laboratory Results - last 24 hr 05/22/18 05/22/18 06:59 06:59 WBC 12.61 H RBC 3.55 L Hgb 11.1 L Hct 33.7 L MCV 94.9 MCH 31.3 MCHC 32.9 RDW Std Deviation 52.6 H RDW Coeff of Tigre 15.1 H Plt Count 169 MPV 11.0 H Sodium 142 Potassium 3.2 L Chloride 101 Carbon Dioxide 36 H Anion Gap 5.0 BUN 18 Creatinine 0.68 Est Cr Clr Drug Dosing 82.0 Est GFR ( Amer) 107.1 Est GFR (Non-Af Amer) 92.4 BUN/Creatinine Ratio 27.1 H Glucose 90 Calcium 8.9 Phosphorus 1.8 L Magnesium 1.8
--- NOTE | 2018-05-22 13:30 | Progress Note ---
DATE: 05/22/2018 PULMONARY PROGRESS NOTE TIME: 1:10 p.m. SUBJECTIVE: The patient is feeling reasonably well. She is denying any significant shortness of breath or cough. She still does not seem to have a whole lot of energy. OBJECTIVE: GENERAL: The patient was comfortable at rest. VITAL SIGNS: Temperature is 36.5. There have been no fevers. Heart rate 74 per minute. Rhythm regular. Blood pressure 114/72. LUNGS: Lung francois are clear bilaterally. Respiratory rate 18. Saturation 92% on 2 liters. She has been off oxygen part of the time today. EXTREMITIES: Showed a scar in the right knee from prior surgery. No cyanosis, clubbing or edema is noted. IMAGING DATA: Chest x-ray done today shows significant improvement in the bilateral airspace opacifications. I would estimate approximately an 80% improvement, though there are still as residual opacities noted. I suspect this reflects improvement in what is most likely aspiration pneumonia. LABORATORY DATA: White count today was 12.61. This actually increased from yesterday at 9.76. Hemoglobin is 11.1. Platelets 169,000. Electrolytes show sodium 142, potassium 3.2, chloride 101, bicarbonate 36. Once again, her bicarbonate is staying somewhat elevated. IMPRESSION: 1. Improved bilateral infiltrates - likely secondary to aspiration pneumonia. 2. Status post repair of incarcerated hernia. COMMENTS: The patient seems to be doing well. Consideration is given to changing her antibiotic to Augmentin. I am anticipating that her oxygenation will continue to improve. Would encourage increased ambulation if at all possible.
[2018-05-22] MEDS ORDERED: POTASSIUM CHLORIDE 10 MEQ TABCR PO STA (14:39)
[2018-05-22] MEDS: POT PHOSPHATE MONOBASIC W/ SOD TAB PO SCH ×2 (16:15→21:24)
--- NOTE | 2018-05-22 19:35 | Hospitalist Progress Note ---
Date of Service May 22, 2018 Assessment & Plan (1) Acute on chronic diastolic (congestive) heart failure: Improving. Still about 8 liters + since admission. Will give 2 doses of IV lasix today and re-eval tomorrow. Wean NC O2 as tolerated. Present on Admission?: No (2) Acute respiratory failure with hypoxia: Multifactorial including possible pneumonia and acute/chronic diastolic CHF. Pulmonary continues to follow; recs appreciated. Wean O2 as tolerated. Finish abx. Diurese. (3) Atrial flutter: Multiple episodes of rapid a. flutter about 1 week ago. s/p amiodarone drip and then PO amiodarone. NSR since then. ?anticoagulation -- will d/w patient. If patient agrees then will need surgical clearance for anticoagulation. Cont to monitor on tele but consider transfer to med/surg tomorrow if stable on tele overnight. (4) Pneumonia: day #5 of zosyn 7 days of Rx then stop (5) Complicated unilateral incarcerated femoral hernia: s/p open laparotomy with Small Bowel Resection, Repair of Strangulated Hernia on right. POD #7. management per surgery. course complicated by shock,, a flutter, respiratory failure, and significant electrolyte disturbances. Doing much better and tolerating diet with passage of stools. (6) Small bowel obstruction: 2nd to incarcerated right-sided femoral hernia. s/p open laparotomy with 10cm of small bowel resected. (7) Shock: septic and/or hypovolemic and/or addisonian (was on steroids recently prior to her hospitalization). resolved. steroids weaned and stopped. BPs wnl. (8) COPD (chronic obstructive pulmonary disease): not in exacerbation at this time. incentive elsa. nebs prn. (9) Tobacco use: counseled to quit. (10) GERD (gastroesophageal reflux disease): PPI (11) Hypertension: stable on beta romina (12) CAD (coronary artery disease): stable, no ischemic symptoms beta romina resume asa, statin, MARA soon (13) Hypomagnesemia: resolved (14) Hypokalemia: 2nd to lasix replace and repeat BMP am replace low phos as well (15) Leukopenia: resolved suspect it was sepsis-related (16) Thrombocytopenia: suspect it was sepsis-related resolved (17) Folic acid deficiency: folic acid 1mg daily x 30 days (18) DVT prophylaxis: heparin. patient progressing nicely looking at PT, OT notes she is borderline for home but home with PT/OT a p ossibility re-evals tomorrow Subjective tele stable overnight NSR - no afib or flutter feeling better each day passing flatus/stool eating decently w/o nausea still requiring NC O2 mild EDWARDS very weak Constitutional: + fatigue and + weakness; no fever Respiratory: + dyspnea on exertion Cardiovascular: no chest pain Gastrointestinal: + abdominal pain; no nausea, no vomiting and no constipation Physical Exam Vital Signs (Past 24 Hours): Last Vital Signs Temp 37.0 C 05/22/18 15:12 Pulse 72 05/22/18 15:12 Resp 16 05/22/18 15:12 BP 114/68 05/22/18 15:12 Pulse Ox 92 05/22/18 15:12 Constitutional: no acute distress looks much better than the previous visit I had with her (last weekend) ENMT: Mouth: no oropharynx abnormality and no oral mucosal abnormality Respiratory: normal respiratory effort Auscultation: + rales (mild - bases only); no rhonchi and no wheezes Cardiovascular: RRR, no murmur, no edema Rate/Rhythm: regular rate and regular rhythm Heart Sounds: normal S1 and normal S2; no murmur Vessels: dorsalis pedis pulses present; no JVD Extremities: normal capillary refill and + pedal edema Gastrointestinal (Abdomen): normal bowel sounds, soft, nontender, no hepatosplenomegaly dressings intact to abdominal wall Psychiatric: A+Ox3, euthymic affect Results & Data Laboratory Results Laboratory Results - last 24 hr 05/22/18 05/22/18 06:59 06:59 WBC 12.61 H RBC 3.55 L Hgb 11.1 L Hct 33.7 L MCV 94.9 MCH 31.3 MCHC 32.9 RDW Std Deviation 52.6 H RDW Coeff of [place] 15.1 H Plt Count 169 MPV 11.0 H Sodium 142 Potassium 3.2 L Chloride 101 Carbon Dioxide 36 H Anion Gap 5.0 BUN 18 Creatinine 0.68 Est Cr Clr Drug Dosing 82.0 Est GFR ( Amer) 107.1 Est GFR (Non-Af Amer) 92.4 BUN/Creatinine Ratio 27.1 H Glucose 90 Calcium 8.9 Phosphorus 1.8 L Magnesium 1.8 (1) Atrial flutter Atrial flutter type: unspecified Qualified Code(s): I48.92 - Unspecified atrial flutter (2) Pneumonia Pneumonia type: due to unspecified organism Laterality: bilateral Lung location: unspecified part of lung Qualified Code(s): J18.9 - Pneumonia, unspecified organism (3) COPD (chronic obstructive pulmonary disease) COPD type: unspecified COPD Qualified Code(s): J44.9 - Chronic obstructive pulmonary disease, unspecified (4) GERD (gastroesophageal reflux disease) Esophagitis presence: without esophagitis Qualified Code(s): K21.9 - Gastro- esophageal reflux disease without esophagitis (5) Hypertension Hypertension type: essential hypertension Qualified Code(s): I10 - Essential (primary) hypertension (6) CAD (coronary artery disease) Coronary Disease-Associated Artery/Lesion type: [place] artery [place] vs. transplanted heart: [place] heart Associated angina: without angina Qualified Code(s): I25.10 - Atherosclerotic heart disease of [place] coronary artery without angina pectoris (7) Leukopenia Leukopenia type: other Qualified Code(s): D72.818 - Other decreased white blood cell count
[2018-05-23] MEDS: PIPERACILLIN/TAZOBACTAM 4.5 GM in DEXTROSE 5% 100 ML IV SCH ×4 (00:10→23:44)
[2018-05-23] MEDS: OXYCODONE/ACETAMINOPHEN 5mg/325mg TAB PO PRN ×4 (04:05→21:52)
[2018-05-23] MEDS: HEPARIN SOD 5,000 UNIT/0.5 ML VIAL SQ SCH ×3 (05:58→21:45)
[2018-05-23] MEDS: CLOTRIMAZOLE 10 MG TROCHE BUCCAL SCH ×5 (05:58→21:46)
[2018-05-23 07:02] LABS: BUN Creatinine Ratio 28.9 (10-20); Calcium 8.8 mg/dl (8.5-10.1); Creatinine Clr Calc Pharmacy 87.6 ml/min; Est GFR (African American) 109.3; Est GFR (Non-African American) 94.3; Magnesium 1.6 mg/dl (1.8-2.4); Potassium 3.3 mmol/L (3.5-5.1)
[2018-05-23] MEDS: PANTOprazole 40 MG TAB PO SCH (08:09)
[2018-05-23] MEDS: FOLIC ACID 1 MG TAB PO SCH (08:09)
[2018-05-23] MEDS: POT PHOSPHATE MONOBASIC W/ SOD TAB PO SCH ×4 (08:09→20:01)
[2018-05-23] MEDS: METOPROLOL SUCC 25MG EXT REL TAB PO SCH (08:09)
[2018-05-23] MEDS: AMIODARONE 200 MG TAB PO SCH (08:09)
[2018-05-23] MEDS ORDERED: POTASSIUM CHLORIDE 20 MEQ TABCR PO STA (08:14)
[2018-05-23] MEDS: MAGNESIUM SULFATE / D5W 1 GM/100 ML BAG IV SCH ×2 (09:33→10:30)
[2018-05-23] MEDS ORDERED: FUROSEMIDE 20 MG in SYRINGE 0 ML IV ONE (10:00)
--- NOTE | 2018-05-23 11:51 | Progress Note ---
DATE: 05/23/2018 TIME: 11:05 a.m. SUBJECTIVE: Breathing lu, the patient is doing well. She does not complain of shortness of breath and she is not complaining of a cough. She states she still has no appetite. She is still somewhat weak. She has not ambulated very much thus far. OBJECTIVE: GENERAL: The patient appeared comfortable. VITAL SIGNS: Temperature is 36.8. She has remained afebrile. Heart rate is 100 per minute. Rhythm is regular. Blood pressure 110/66. LUNGS: Lung francois were nearly clear. Just a slight rhonchi posteriorly. Respiratory rate 18. Saturation 94% on 2 liters. EXTREMITIES: Showed no cyanosis, clubbing or edema. LABORATORY DATA: Electrolytes show sodium 140, potassium 3.3, chloride 99, bicarbonate 37. BUN is 19 with creatinine 0.64. As noted previously, chest x-ray from yesterday is dramatically improved compared with the prior, but still was some residual. IMPRESSION: 1. Bilateral lung infiltrates - likely secondary to aspiration pneumonia. 2. Status post repair of incarcerated inguinal hernia. RECOMMENDATIONS: The patient seems stable from a respiratory perspective. The only concern is the elevation of CO2 on the electrolytes. She may well have some underlying COPD. She has a longstanding history of smoking. As mentioned previously, I have no objection to changing to Augmentin whenever desired. Would encourage the patient to do incentive spirometry regularly. We will see her again if specifically requested.
--- NOTE | 2018-05-23 14:14 | Surgery Progress Note ---
Date of Service May 23, 2018 Assessment & Plan (1) Complicated unilateral incarcerated femoral hernia: POD #8 small bowel resection and femoral hernia repair for strangulated femoral hernia, doing well. low fiber diet Wet-to-dry dressing changes twice daily Patient may shower Encourage ambulation Appreciate other services assistance with this patient follow up later next week for staple removal tomorrow will be day / for zosyn, will not send home on po augmentin Plan for d/c to home tomorrow with home health care Subjective 63-year-old female POD #8 small bowel resection and repair of strangulated femoral hernia. Lower midline wound opened at bedside yesterday, fascia intact, wet to dry dressings placed. Tolerating low residue diet, pain well controlled, off O2. Home health care being coordinated. Physical Exam Vital Signs (Past 24 Hours): Last Vital Signs Temp 36.8 C 05/23/18 08:00 Pulse 90 05/23/18 12:00 Resp 16 05/23/18 12:00 BP 115/72 05/23/18 12:00 Pulse Ox 93 05/23/18 12:00 Constitutional: WD/WN, vitals as above Gastrointestinal (Abdomen): midline incision without erythema, wet to dry dressing intact with serosanguinous drainage. No hernia. RLQ incision with jillian, healing well. Results & Data Laboratory Results Laboratory Results - last 24 hr 05/23/18 05:56 Sodium 140 Potassium 3.3 L Chloride 99 Carbon Dioxide 37 H Anion Gap 5.0 BUN 19 H Creatinine 0.64 Est Cr Clr Drug Dosing 87.6 Est GFR ( Amer) 109.3 Est GFR (Non-Af Amer) 94.3 BUN/Creatinine Ratio 28.9 H Glucose 100 H Calcium 8.8 Magnesium 1.6 L
--- NOTE | 2018-05-23 21:10 | Hospitalist Progress Note ---
Date of Service May 23, 2018 Assessment & Plan (1) Acute on chronic diastolic (congestive) heart failure: Cont to improved with stable BUN & Cr. Give another dose of IV lasix today. O2 is just about off. (2) Acute respiratory failure with hypoxia: Multifactorial including possible pneumonia and acute/chronic diastolic CHF. Pulmonary continues to follow; recs appreciated. During my visit I was able to remove O2 -- sats were low 90s in room air. Monitor. (3) Atrial flutter: Multiple episodes of rapid a. flutter about 1 week ago. s/p amiodarone drip and then PO amiodarone. NSR since then. ?anticoagulation -- will d/w patient. Needs cardiology f/u after discharge. (4) Pneumonia: day #6 of zosyn 7 days of Rx then stop (5) Complicated unilateral incarcerated femoral hernia: s/p open laparotomy with Small Bowel Resection, Repair of Strangulated Hernia on right. POD #8. management per surgery. course complicated by shock,, a flutter, respiratory failure, and significant electrolyte disturbances. Doing much better and tolerating diet with passage of stools. (6) Small bowel obstruction: 2nd to incarcerated right-sided femoral hernia. s/p open laparotomy with 10cm of small bowel resected. (7) Shock: septic and/or hypovolemic and/or addisonian (was on steroids recently prior to her hospitalization). resolved. steroids weaned and stopped. BPs wnl. (8) COPD (chronic obstructive pulmonary disease): not in exacerbation at this time. incentive elsa. nebs prn. (9) Tobacco use: counseled to quit. (10) GERD (gastroesophageal reflux disease): PPI (11) Hypertension: stable on beta romina (12) CAD (coronary artery disease): resume all normal Meds (asa, statin, etc) next 24 hrs (13) Hypomagnesemia: replace again IV repeat level am (14) Hypokalemia: replete, repeat level AM (15) Leukopenia: resolved suspect it was sepsis-related (16) Thrombocytopenia: suspect it was sepsis-related resolved (17) Folic acid deficiency: folic acid 1mg daily x 30 days (18) DVT prophylaxis: heparin. home this weekend? progressing nicely Subjective patient doing very well today eating well ambulating better minimal pain NSR on monitor denies significant pulmonary sx's Constitutional: no anorexia Cardiovascular: no chest pain Gastrointestinal: no abdominal pain, no nausea and no vomiting Physical Exam Vital Signs (Past 24 Hours): Last Vital Signs Temp 37 C 05/23/18 19:12 Pulse 75 05/23/18 19:12 Resp 17 05/23/18 19:12 BP 101/61 05/23/18 19:12 Pulse Ox 88 L 05/23/18 19:12 Constitutional: WD/WN, vitals as above no acute distress ENMT: Mouth: no oropharynx abnormality and no oral mucosal abnormality Respiratory: normal respiratory effort, lungs clear to auscultation Auscultation: no rales, no rhonchi and no wheezes Cardiovascular: Rate/Rhythm: regular rate and regular rhythm Heart Sounds: normal S1 and normal S2; no murmur Vessels: dorsalis pedis pulses present; no JVD Extremities: normal capillary refill, + pedal edema and + edema (extending to the thighs) Gastrointestinal (Abdomen): normal bowel sounds, soft, nontender, no hepatosplenomegaly Inspection/Auscultation: + abnormal bowel sounds (not normal but improved from yesterday) Percussion/Palpation: + abdomen tender (incisions) Skin: no rashes, warm and dry dressings intact to abd wall Psychiatric: A+Ox3, euthymic affect Results & Data Laboratory Results Laboratory Results - last 24 hr 05/23/18 05:56 Sodium 140 Potassium 3.3 L Chloride 99 Carbon Dioxide 37 H Anion Gap 5.0 BUN 19 H Creatinine 0.64 Est Cr Clr Drug Dosing 87.6 Est GFR ( Amer) 109.3 Est GFR (Non-Af Amer) 94.3 BUN/Creatinine Ratio 28.9 H Glucose 100 H Calcium 8.8 Magnesium 1.6 L (1) CAD (coronary artery disease) Associated angina: without angina Coronary Disease-Associated Artery/Lesion type: [place] artery [place] vs. transplanted heart: [place] heart Qualified Code(s): I25.10 - Atherosclerotic heart disease of [place] coronary artery without angina pectoris (2) Atrial flutter Atrial flutter type: unspecified Qualified Code(s): I48.92 - Unspecified atrial flutter (3) Leukopenia Leukopenia type: other Qualified Code(s): D72.818 - Other decreased white blood cell count (4) COPD (chronic obstructive pulmonary disease) COPD type: unspecified COPD Qualified Code(s): J44.9 - Chronic obstructive pulmonary disease, unspecified (5) GERD (gastroesophageal reflux disease) Esophagitis presence: without esophagitis Qualified Code(s): K21.9 - Gastro- esophageal reflux disease without esophagitis (6) Hypertension Hypertension type: essential hypertension Qualified Code(s): I10 - Essential (primary) hypertension (7) Pneumonia Laterality: bilateral Lung location: unspecified part of lung Pneumonia type: due to unspecified organism Qualified Code(s): J18.9 - Pneumonia, unspecified organism
[2018-05-23] MEDS: MAGNESIUM OXIDE 400 MG TAB PO SCH (21:44)
[2018-05-23] MEDS: POTASSIUM CHLORIDE 20 MEQ TABCR PO SCH (21:44)
[2018-05-24] MEDS: OXYCODONE/ACETAMINOPHEN 5mg/325mg TAB PO PRN ×2 (04:51→09:37)
[2018-05-24] MEDS: HEPARIN SOD 5,000 UNIT/0.5 ML VIAL SQ SCH ×2 (05:00→13:45)
[2018-05-24 07:01] LABS: BUN Creatinine Ratio 21.5 (10-20); Calcium 8.3 mg/dl (8.5-10.1); Creatinine Clr Calc Pharmacy 82.3 ml/min; Est GFR (African American) 107.1; Est GFR (Non-African American) 92.4; Potassium 3.4 mmol/L (3.5-5.1)
[2018-05-24] MEDS: CLOTRIMAZOLE 10 MG TROCHE BUCCAL SCH ×3 (07:50→13:45)
[2018-05-24] MEDS: PIPERACILLIN/TAZOBACTAM 4.5 GM in DEXTROSE 5% 100 ML IV SCH (07:51)
[2018-05-24] MEDS: AMIODARONE 200 MG TAB PO SCH (07:52)
[2018-05-24] MEDS: FOLIC ACID 1 MG TAB PO SCH (07:53)
[2018-05-24] MEDS: POTASSIUM CHLORIDE 20 MEQ TABCR PO SCH (07:53)
[2018-05-24] MEDS: PANTOprazole 40 MG TAB PO SCH (07:54)
[2018-05-24] MEDS: POT PHOSPHATE MONOBASIC W/ SOD TAB PO SCH ×2 (07:54→12:10)
[2018-05-24] MEDS: METOPROLOL SUCC 25MG EXT REL TAB PO SCH (07:54)
[2018-05-24] MEDS: MAGNESIUM OXIDE 400 MG TAB PO SCH (07:54)
[2018-05-24] MEDS ORDERED: FUROSEMIDE 20 MG in SYRINGE 0 ML IV ONE (08:30)
[2018-05-24] MEDS ORDERED: POTASSIUM CHLORIDE 10 MEQ TABCR PO ONE (08:30)
--- NOTE | 2018-05-24 19:15 | Hospitalist Progress Note ---
Date of Service May 24, 2018 Assessment & Plan (1) Acute on chronic diastolic (congestive) heart failure: Improved volume status and at a point in which she is safe for d/c home. Mild peripheral edema only. D/c home on 20mg lasix daily with K/mag supplement. Take x 7 days then stop. Repeat labs (BMP, mag) as outpatient within 5 days to ensure stability. (2) Acute respiratory failure with hypoxia: resolved. off O2. 2-step O2 test -- NO NEED for home O2. stop abx (7th day is today). lasix daily for 1 week at home then stop. (3) Atrial flutter: Multiple episodes of rapid a. flutter about 1 week ago. s/p amiodarone drip and then PO amiodarone. NSR since then. Lengthy discussion held with patient today about anticoagulation. Risks/benefits, options, why we anticoagulate, etc. She is willing to start eliquis 5mg BID. I spoke with gen surg and anticoagulation IS ok at this time. Send home with metoprolol xl 25mg daily, amiodarone 200mg daily, and eliquis 5mg BID. f/u Dr. Fajardo in 2 weeks. (4) Pneumonia: day #7 of zosyn stop abx today clinically resolved (5) Complicated unilateral incarcerated femoral hernia: s/p open laparotomy with Small Bowel Resection, Repair of Strangulated Hernia on right. POD #9. course complicated by shock,, a flutter, respiratory failure, and significant electrolyte disturbances. All issues resolved. stable from gen surg standpoint. Doing well and tolerating diet with passage of stools. (6) Small bowel obstruction: 2nd to incarcerated right-sided femoral hernia. s/p open laparotomy with 10cm of small bowel resected. (7) Shock: septic and/or hypovolemic and/or addisonian (was on steroids recently prior to her hospitalization). resolved. steroids weaned and stopped. BPs wnl. (8) COPD (chronic obstructive pulmonary disease): stable, no issues (9) Tobacco use: counseled to quit. (10) GERD (gastroesophageal reflux disease): PPI (11) Hypertension: stable on beta romina HOLD MARA at discharge for now (12) CAD (coronary artery disease): continue statin continue beta romina since she is starting eliquis will hold aspirin for now but hopefully resume as outpatient in a couple of weeks (13) Hypomagnesemia: resolved mag supplement for 7 days with her lasix (14) Hypokalemia: replete again before d/c today supplement for 7 days while on PO lasix after d/c f/u labs later this week (15) Leukopenia: resolved suspect it was sepsis-related (16) Thrombocytopenia: suspect it was sepsis-related resolved (17) Folic acid deficiency: folic acid 1mg daily x 30 days at d/c ok for d/c from medical standpoint I updated her d/c instructions sent prescriptions to pharmacy for her f/u PCP in 5 days and cardiology within 2 weeks Subjective tele w/ NSR overnight feels good eating well ambulating w/o dyspnea 2-step O2 test ordered - did NOT need home O2 ready to go home! Constitutional: no fever Respiratory: no cough and no dyspnea Cardiovascular: no chest pain Gastrointestinal: no abdominal pain, no nausea, no vomiting, no constipation and no blood in stools Physical Exam Vital Signs (Past 24 Hours): Last Vital Signs Temp 36.8 C 05/24/18 14:37 Pulse 93 H 05/24/18 14:37 Resp 20 05/24/18 14:37 BP 139/61 05/24/18 14:37 Pulse Ox 89 L 05/24/18 14:37 Constitutional: WD/WN, vitals as above no acute distress ENMT: Mouth: no oropharynx abnormality and no oral mucosal abnormality Respiratory: normal respiratory effort, lungs clear to auscultation Auscultation: no rales, no rhonchi and no wheezes Cardiovascular: RRR, no murmur, no edema Heart Sounds: normal S1 and normal S2 Vessels: dorsalis pedis pulses present; no JVD Extremities: normal capillary refill and + pedal edema Gastrointestinal (Abdomen): normal bowel sounds, soft, nontender, no hepatosplenomegaly Skin: no rashes, warm and dry Psychiatric: A+Ox3, euthymic affect Results & Data Laboratory Results Laboratory Results - last 24 hr 05/24/18 06:01 Sodium 139 Potassium 3.4 L Chloride 98 Carbon Dioxide 35 H Anion Gap 6.0 BUN 15 Creatinine 0.68 Est Cr Clr Drug Dosing 82.3 Est GFR ( Amer) 107.1 Est GFR (Non-Af Amer) 92.4 BUN/Creatinine Ratio 21.5 H Glucose 115 H Calcium 8.3 L Magnesium 2.0 (1) Atrial flutter Atrial flutter type: unspecified Qualified Code(s): I48.92 - Unspecified atrial flutter (2) Pneumonia Pneumonia type: due to unspecified organism Laterality: bilateral Lung location: unspecified part of lung Qualified Code(s): J18.9 - Pneumonia, unspecified organism (3) COPD (chronic obstructive pulmonary disease) COPD type: unspecified COPD Qualified Code(s): J44.9 - Chronic obstructive pulmonary disease, unspecified (4) GERD (gastroesophageal reflux disease) Esophagitis presence: without esophagitis Qualified Code(s): K21.9 - Gastro- esophageal reflux disease without esophagitis (5) Hypertension Hypertension type: essential hypertension Qualified Code(s): I10 - Essential (primary) hypertension (6) CAD (coronary artery disease) Coronary Disease-Associated Artery/Lesion type: [place] artery [place] vs. transplanted heart: [place] heart Associated angina: without angina Qualified Code(s): I25.10 - Atherosclerotic heart disease of [place] coronary artery without angina pectoris (7) Leukopenia Leukopenia type: other Qualified Code(s): D72.818 - Other decreased white bl ood cell count
--- NOTE | 2018-05-26 12:56 | Discharge Summary ---
Date of Service May 28, 2018 Admission HPI Per Admitting Provider 63-year-old female presented to the emergency department with abdominal pain and nausea vomiting. She recently had a gastrointestinal illness starting early this week. She then developed abdominal bloating and cramping starting sometime yesterday. She has not had a bowel movement since Saturday or Saturday, and is not passing flatus for the past day or 2. She is never had symptoms like this before. She denies any pain or bulge in her groin. No prior hernia repairs, she did have a laparoscopic cholecystectomy in the past. She does have a history of heart attack and is currently active smoker, however she has never had any stents. She is on a baby aspirin, and sees cardiology on a regular basis, last visit in October. She does not take nitro or have regular chest pain. Discharge Data Allergies Allergy/AdvReac Type Severity Reaction Status Date / Time Iodinated Contrast- Oral and Allergy Mild rash Unverified 05/15/18 19:05 IV Dye tapentadol [From Nucynta] AdvReac Unknown Confusion Verified 05/15/18 06:44 Consultations 05/15/18 07:37 ED Decision to Admit Stat 05/15/18 15:57 Consult Hospitalist Routine 05/15/18 16:03 Consult Hospitalist Stat 05/15/18 18:53 Consult Broom Machine Operator Routine 05/18/18 10:08 Consult Cardiology Routine 05/22/18 13:53 Consult Case Management - Discharge Planning Routine Procedures Performed Operation Date: 05/15/18 09:35 Actual Procedures p Open Small Bowel Resection, Repair of Strangulated Hernia - Gabriel Mccall DO, FACS s Diagnostic Laparoscopy - Gabriel Mccall DO, FACS Ordered Studies 05/15/18 06:02 CT abd pelvis IV con only Stat 05/18/18 17:46 CT angio chest PE protocol Urgent Hospital Course (1) Complicated unilateral incarcerated femoral hernia: POD #8 small bowel resection and femoral hernia repair for strangulated femoral hernia, doing well. low fiber diet Wet-to-dry dressing changes twice daily Patient may shower Encourage ambulation Appreciate other services assistance with this patient follow up later next week for staple removal tomorrow will be day 7/7 for zosyn, will not send home on po augmentin Plan for d/c to home tomorrow with home health care Discharge Plan Discharge Items Patient Disposition: Home - Home Health Services Reason For Visit: S/P DX LAP,OPEN SMALL BOWEL RESECTION,REPAIR OF ST Discharge Diagnosis: s/p Diagnostic Laparoscopy, Open Small Bowel Resection, Repair of Strangulated Femoral Hernia Condition: Good Discharge Goals: Decrease discomfort Activity: As commented below Lifting: No more than 10 pounds Lifting Comment: No heavy lifting for 4 weeks from surgery Bathing Comment: You may shower, but do not soak or scrub your incisions. Non-emergency contact: Surgeon Call non-emergency contact if: you have any medication questions, your pain is not controlled, your temperature is above 101.5, your wound has increased redness and your wound has increased drainage Follow-up/Referrals: Major Lemus MD [Primary Care Provider] - (see Dr. Lemus or one of his partners within 5 days at the latest ) Gabriel Mccall DO, ABY [Physician] - (Please call the General Surgery clinic to schedule an appointment for staple removal. Please call the clinic at [phone] with any questions or concerns. ) Major Fajardo MD [Martial Arts Instructor] - (see Dr. Fajardo or one of his partners at [facility] within 2 weeks ) Diet: Low Fiber Addtl Provider Instructions: You may shower, but do not soak or scrub your incisions. Please follow-up in the General Surgery clinic for staple removal 10-14 days after surgery. Please call the clinic at [phone] to schedule this appointment. Please call the General Surgery clinic at [phone] with any questions or c oncerns. Additional instructions from Dr. Lion, Hospitalist - 1. starting TOMORROW, 05/25/18, take the following - * amiodarone 200mg once a day for a. flutter/a. fib * folic acid 1mg daily for 30 days * lasix 20mg every morning for 7 days in total * potassium 20meq every morning for 7 days in total * magnesium oxide 400mg every morning for 7 days in total 2. starting TONIGHT, 05/24/18, take eliquis 5mg twice a day. This is your blood thinner. The blood thinner will reduce your risk of stroke from the a. flutter / a. fib. Since the eliquis thins the blood it increases the risk of bleeding from the gastrointestinal tract, the urinary tract, skin, nose, etc. If you encounter any problems with bleeding please contact your doctors right away. You do NOT need to change your diet with eliquis. 3. note that your metoprolol dose IS THE SAME but we have changed it from metoprolol tartrate TO metoprolol succinate. It is still once a day as well. 4. please have Dr. Lemus's office repeat your electrolytes and magnesium level in 5 days to ensure stability. 5. continue your incentive spirometry for your lungs for a few days upon return home. 6. you will receive home PT and home OT upon discharge. 7. STOP your aspirin and STOP your lisinopril for now. 8. follow-up - * see Dr. Lemus within 5 days * see Dr. Gerardo Fajardo, the foreign service teacher, in 2 weeks (or one of his partners) 9. return to [facility] if - * you have fevers over 100.5 degrees * you have worsening shortness of breath or chest pain * you have worsening abdominal pain or vomiting * rapid heart beating or palpitations * any other concerns Prescriptions: New oxycodone-acetaminophen [Percocet] 5-325 mg tablet 1 - 2 tab PO Q6H Qty: 30 RF: 0 amiodarone 200 mg Tablet 200 mg PO QAM Qty: 30 RF: 2 magnesium oxide 400 mg (241.3 mg magnesium) Tablet 400 mg PO DAILY Qty: 7 RF: 0 folic acid 1 mg Tablet 1 mg PO QAM Qty: 30 RF: 0 potassium chloride [Klor-Con M20] 20 mEq Tablet,Er Particles/Crystals 20 meq PO DAILY Qty: 7 RF: 0 furosemide [Lasix] 20 mg tablet 20 mg PO QAM 7 Days Qty: 7 RF: 0 Eliquis 5 mg tablet 5 mg PO BID Qty: 60 RF: 2 metoprolol succinate 25 mg tablet extended release 24 hr 25 mg PO DAILY Qty: 30 RF: 2 Continued atorvastatin [Lipitor] 80 mg tablet 80 mg PO HS RF: 0 sucralfate [Carafate] 1 gram tablet 2 gm PO BID RF: 0 niacin 500 mg tablet 500 mg PO BID RF: 0 tramadol 200 mg tablet extended release 24 hr 200 mg PO DAILY PRN (Reason: Pain) RF: 0 pregabalin [Lyrica] 225 mg Capsule 225 mg PO BID RF: 0 tramadol 50 mg tablet 50 mg PO Q6H PRN (Reason: BREAKTHROUGH PAIN) RF: 0 Discontinued aspirin [Adult Aspirin Regimen] 81 mg tablet,delayed release (DR/EC) 81 mg PO DAILY RF: 0 lisinopril [Zestril] 5 mg tablet 5 mg PO DAILY RF: 0 Stand-Alone Forms: Call Back Authorization, [facility]/Other Patient Handouts: AFL/Afib Discharge Orders: Discharge Order (Routine); Ordered 05/24/18 Ordered By: Jovan Best Admission Data Admit Date/Time: 05/15/18 13:42 Attending Provider: Gabriel Mccall Admit Provider: Gabriel Mccall Primary Care Provider: Major Lemus Other Providers: Fran Moran ; Itz Gonzales Christophe W. Service: Intensive Care Unit Other Interventions: Discharge Summary Assessment (RN) Last Done: 05/24/18 14:37 DC Date/Time DO NOT enter until pt leaves facility: 05/24/18 16:29
--- NOTE | 2018-05-28 15:24 | Discharge Summary ---
Date of Service June 04, 2018 Discharge Data Consultations 05/15/18 07:37 ED Decision to Admit Stat 05/15/18 15:57 Consult Hospitalist Routine 05/15/18 16:03 Consult Hospitalist Stat 05/15/18 18:53 Consult Louver Door Assembler Routine 05/18/18 10:08 Consult Cardiology Routine 05/22/18 13:53 Consult Case Management - Discharge Planning Routine Procedures Performed Operation Date: 05/15/18 09:35 Actual Procedures p Open Small Bowel Resection, Repair of Strangulated Hernia - Gabriel Mccall DO, FACS s Diagnostic Laparoscopy - Gabriel Mccall DO, FACS
--- NOTE | 2018-05-28 15:24 | Discharge Summary ---
Date of Service June 04, 2018 Admission HPI Per Admitting Provider 63-year-old female presented to the emergency department with abdominal pain and nausea vomiting. She recently had a gastrointestinal illness starting early this week. She then developed abdominal bloating and cramping starting sometime yesterday. She has not had a bowel movement since Saturday or Saturday, and is not passing flatus for the past day or 2. She is never had symptoms like this before. She denies any pain or bulge in her groin. No prior hernia repairs, she did have a laparoscopic cholecystectomy in the past. She does have a history of heart attack and is currently active smoker, however she has never had any stents. She is on a baby aspirin, and sees cardiology on a regular basis, last visit in October. She does not take nitro or have regular chest pain. CT scan revealed incarcerated femoral hernia with bowel obstruction. Discharge Data Consultations 05/15/18 07:37 ED Decision to Admit Stat 05/15/18 15:57 Consult Hospitalist Routine 05/15/18 16:03 Consult Hospitalist Stat 05/15/18 18:53 Consult Console Assembler Routine 05/18/18 10:08 Consult Cardiology Routine 05/22/18 13:53 Consult Case Management - Discharge Planning Routine Procedures Performed Operation Date: 05/15/18 09:35 Actual Procedures p Open Small Bowel Resection, Repair of Strangulated Hernia - Gabriel Mccall DO, ABY s Diagnostic Laparoscopy - Gabriel Mccall DO, FACS
--- NOTE | 2018-06-03 16:01 | Discharge Summary ---
Date of Service June 03, 2018 Admission HPI Per Admitting Provider 63-year-old female presented to the emergency department with abdominal pain and nausea vomiting. She recently had a gastrointestinal illness starting early this week. She then developed abdominal bloating and cramping starting sometime yesterday. She has not had a bowel movement since Saturday or Saturday, and is not passing flatus for the past day or 2. She is never had symptoms like this before. She denies any pain or bulge in her groin. No prior hernia repairs, she did have a laparoscopic cholecystectomy in the past. She does have a history of heart attack and is currently active smoker, however she has never had any stents. She is on a baby aspirin, and sees cardiology on a regular basis, last visit in October. She does not take nitro or have regular chest pain. CT scan revealed incarcerated femoral hernia with bowel obstruction. Admission Exam Per Admitting Provider Incarcerated femoral hernia with no skin changes Principal Diagnosis Strangulated femoral hernia with small bowel obstruction Discharge Exam Constitutional WD/WN, vitals as above + ill appearing and average body habitus; no acute distress Eyes PERRL, conjunctivae normal, anicteric sclerae ENMT external ear and nose normal, oropharynx normal Neck trachea midline, no thyromegaly Respiratory normal respiratory effort, lungs clear to auscultation Cardiovascular RRR, no murmur, no edema Gastrointestinal (Abdomen) Inspection/Auscultation: + abdomen distended and + abdominal surgical incision (clean, dry, intact. ) Percussion/Palpation: + abdomen tender (at surgical incisions. ) and abdomen soft Musculoskeletal no cyanosis or clubbing, extremities motor strength 5/5 Skin no rashes, warm and dry Neurologic PERRL, EOMI, accommodation nl, no face palsy, no dysarthria CN's II-XI intact bilaterally Psychiatric A+Ox3, euthymic affect Lymphatic no cervical or axillary lymphadenopathy Discharge Data Allergies Allergy/AdvReac Type Severity Reaction Status Date / Time Iodinated Contrast- Oral and Allergy Mild rash Unverified 05/15/18 19:05 IV Dye tapentadol [From Nucynta] AdvReac Unknown Confusion Verified 05/15/18 06:44 Consultations 05/15/18 07:37 ED Decision to Admit Stat 05/15/18 15:57 Consult Hospitalist Routine 05/15/18 16:03 Consult Hospitalist Stat 05/15/18 18:53 Consult Leather Colorer Routine 05/18/18 10:08 Consult Cardiology Routine 05/22/18 13:53 Consult Case Management - Discharge Planning Routine Procedures Performed Operation Date: 05/15/18 09:35 Actual Procedures p Open Small Bowel Resection, Repair of Strangulated Hernia - Gabriel Mccall DO, FACS s Diagnostic Laparoscopy - Gabriel Mccall DO, FACS Ordered Studies 05/15/18 06:02 CT abd pelvis IV con only Stat 05/18/18 17:46 CT angio chest PE protocol Urgent Hospital Course (1) Complicated unilateral incarcerated femoral hernia: 63-year-old female presented to the emergency department with 4 days of abdominal pain with nausea and vomiting. On CT scan she was found to have an incarcerated femoral hernia with resultant small bowel obstruction. We were unable to reduce the hernia at the bedside and she was taken to the operating room for diagnostic laparoscopy and laparoscopic femoral hernia repair, possible open. Upon entering laparoscopically the femoral hernia was identified and during attempts at reduction it was noted that the bowel appeared to be ischemic, and at that point the bowel tore at the margin of ischemic transition and there was spillage of succus. We converted to open and performed a small bowel resection with stapled [id number] functional end-to-end anastomosis. The abdomen was irrigated. A counter incision had to be made in the groin to allow for reduction of the strangulated hernia. The peritoneum was closed primarily after the remainder the hernia had been reduced. The femoral hernia was repaired using preperitoneal OVitex mesh. The femoral defect was sutured primarily. The wounds were irrigated and closed with jillian. She was hypoxic in the recovery room and was admitted to the intensive care unit. She required significant volume resuscitation due to hypotension and hypoxia. She was weaned off pressors over the first 48 hours after surgery. She completed 7 days of antibiotics. Consultations were performed with medicine, pulmonology, and cardiology. She eventually had return of bowel function and was advanced to a low fiber diet. The inferior portion of her incision was open for a postoperative seroma treated with wet-to-dry dressing changes. She was diuresed by the medicine team, and eventually her oxygen requirement resolved. She was discharged home on 24 May with home health care and plans to follow-up in the surgery clinic. Total Time Total Time Spent Total Time Spent (In Minutes): 45 Discharge Plan Discharge Items Patient Disposition: Home - Home Health Services Reason For Visit: S/P DX LAP,OPEN SMALL BOWEL RESECTION,REPAIR OF ST Discharge Diagnosis: s/p Diagnostic Laparoscopy, Open Small Bowel Resection, Repair of Strangulated Femoral Hernia Condition: Good Discharge Goals: Decrease discomfort Activity: As commented below Lifting: No more than 10 pounds Lifting Comment: No heavy lifting for 4 weeks from surgery Bathing Comment: You may shower, but do not soak or scrub your incisions. Non-emergency contact: Surgeon Call non-emergency contact if: you have any medication questions, your pain is not controlled, your temperature is above 101.5, your wound has increased redness and your wound has increased drainage Follow-up/Referrals: Major Lemus MD [Primary Care Provider] - (see Dr. Lemus or one of his partners within 5 days at the latest ) Gabriel Mccall DO, ABY [Physician] - (Please call the General Surgery clinic to schedule an appointment for staple removal. Please call the clinic at [phone] with any questions or concerns. ) Major Fajardo MD [Trading Analyst] - (see Dr. Fajardo or one of his p artners at [facility] within 2 weeks ) Diet: Low Fiber Addtl Provider Instructions: You may shower, but do not soak or scrub your incisions. Please follow-up in the General Surgery clinic for staple removal 10-14 days after surgery. Please call the clinic at [phone] to schedule this appointment. Please call the General Surgery clinic at [phone] with any questions or concerns. Additional instructions from Dr. Lion, Hospitalist - 1. starting TOMORROW, 05/25/18, take the following - * amiodarone 200mg once a day for a. flutter/a. fib * folic acid 1mg daily for 30 days * lasix 20mg every morning for 7 days in total * potassium 20meq every morning for 7 days in total * magnesium oxide 400mg every morning for 7 days in total 2. starting TONIGHT, 05/24/18, take eliquis 5mg twice a day. This is your blood thinner. The blood thinner will reduce your risk of stroke from the a. flutter / a. fib. Since the eliquis thins the blood it increases the risk of bleeding from the gastrointestinal tract, the urinary tract, skin, nose, etc. If you encounter any problems with bleeding please contact your doctors right away. You do NOT need to change your diet with eliquis. 3. note that your metoprolol dose IS THE SAME but we have changed it from metoprolol tartrate TO metoprolol succinate. It is still once a day as well. 4. please have Dr. Lemus's office repeat your electrolytes and magnesium level in 5 days to ensure stability. 5. continue your incentive spirometry for your lungs for a few days upon return home. 6. you will receive home PT and home OT upon discharge. 7. STOP your aspirin and STOP your lisinopril for now. 8. follow-up - * see Dr. Lemus within 5 days * see Dr. Gerardo Fajardo, the staffing executive, in 2 weeks (or one of his partners) 9. return to [facility] if - * you have fevers over 100.5 degrees * you have worsening shortness of breath or chest pain * you have worsening abdominal pain or vomiting * rapid heart beating or palpitations * any other concerns Prescriptions: New oxycodone-acetaminophen [Percocet] 5-325 mg tablet 1 - 2 tab PO Q6H Qty: 30 RF: 0 amiodarone 200 mg Tablet 200 mg PO QAM Qty: 30 RF: 2 magnesium oxide 400 mg (241.3 mg magnesium) Tablet 400 mg PO DAILY Qty: 7 RF: 0 folic acid 1 mg Tablet 1 mg PO QAM Qty: 30 RF: 0 potassium chloride [Klor-Con M20] 20 mEq Tablet,Er Particles/Crystals 20 meq PO DAILY Qty: 7 RF: 0 Eliquis 5 mg tablet 5 mg PO BID Qty: 60 RF: 2 metoprolol succinate 25 mg tablet extended release 24 hr 25 mg PO DAILY Qty: 30 RF: 2 Continued atorvastatin [Lipitor] 80 mg tablet 80 mg PO HS RF: 0 sucralfate [Carafate] 1 gram tablet 2 gm PO BID RF: 0 niacin 500 mg tablet 500 mg PO BID RF: 0 tramadol 200 mg tablet extended release 24 hr 200 mg PO DAILY PRN (Reason: Pain) RF: 0 pregabalin [Lyrica] 225 mg Capsule 225 mg PO BID RF: 0 tramadol 50 mg tablet 50 mg PO Q6H PRN (Reason: BREAKTHROUGH PAIN) RF: 0 Discontinued aspirin [Adult Aspirin Regimen] 81 mg tablet,delayed release (DR/EC) 81 mg PO DAILY RF: 0 lisinopril [Zestril] 5 mg tablet 5 mg PO DAILY RF: 0 Stand-Alone Forms: Call Back Authorization, [facility]/Other Patient Handouts: AFL/Afib Discharge Orders: Discharge Order (Routine); Ordered 05/24/18 Ordered By: Jovan Best Admission Data Admit Date/Time: 05/15/18 13:42 Attending Provider: Gabriel Mccall Admit Provider: Gabriel Mccall Primary Care Provider: Major Lemus Other Providers: Fran Moran ; Itz Gonzales Christophe W. Service: Intensive Care Unit Other Interventions: Discharge Summary Assessment (RN) Last Done: 05/24/18 14:37 DC Date/Time DO NOT enter until pt leaves facility: 05/24/18 16:29
== END 2018-05-24 16:29 | disposition home health service (06) ==
LOC: ED 05:48 → ASU 10:50 → 1E 13:42 → 2S 05-17 14:55

== ENCOUNTER 2021-07-19 08:13 | Observation (INO) ==
--- NOTE | 2021-07-15 09:26 | History and Physical Report ---
CHIEF COMPLAINT: Persistent left knee pain and discomfort. 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 She has a long history of knee problems and underwent a right knee replacement about 4-1/2 years ago. Right knee is doing well. She continues to be limited by left k nee pain and discomfort. She describes it has gotten worse over the years. She has failed conservat enrike treatment. She would like to have her left knee fixed. She has chronic pain. The more she is o n it, the more it hurts. She cannot take NSAIDs due to her Xarelto use and atrial flutter history. Tylenol just does not do it for her. She would like to have her right knee fixed. Of note, she did recently have some vein ablation by Dr. Rahman. She has been seen by Cardiology and medically optimized by Dr. Smith. PAST MEDICAL HISTORY: Significant for: 1. Coronary artery disease, status post PR in 2012. 2. Elevated cholesterol. 3. Obesity. 4. Gastroesophageal reflux disease. 5. Low back pain/sciatica. PAST SURGICAL HISTORY: Includes: 1. Back surgery x2. 2. Right knee replacement 03/20/2017. 3. Right carpal tunnel release. 4. Jaw surgery. 5. Bowel obstruction. ALLERGIES: None. CURRENT MEDICATIONS: Include: 1. Atorvastatin. 2. Furosemide. 3. Gabapentin. 4. Metoprolol. 5. Pantoprazole. 6. Potassium chloride. 7. Xarelto. 8. Sucralfate. 9. Tramadol. 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 She is . Half a pack of cigarettes per day. Occasional alcohol intake. FAMILY HISTORY: Noncontributory. REVIEW OF SYSTEMS: Negative for diabetes or neurologic problems. She is on Xarelto. She has a hist ory of atrial flutter. No chest pain or shortness of breath. PHYSICAL EXAMINATION: GENERAL: Shows a pleasant middle-aged female, who looks to be in reasonably good health. HEENT: Benign. NECK: Supple. No lymphadenopathy. LUNGS: Clear to auscultation. HEART: Has a regular rate and rhythm. ABDOMEN: Soft, nontender, nondistended. EXTREMITIES: Grossly neurovascularly intact except as follows. Examination of the left knee reveals a patient who ambulates independently. She has got fairly neutr al alignment to her knee. Moderate soft tissue envelope. She is tender diffusely around her knee. Range of motion is 5-120. No instability. No pain with hip motion. Examination of the right knee reveals a well-healed anterior incision. No swelling. Range of motion is 0 to 120. X-RAYS: X-rays of the left knee reveal advanced left knee tricompartment DJD. She has got a valgus alignment to her knee. She got osteophytes in all 3 compartments. Diffuse osteopenia. 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 She is 4-1/2 years o ut from a right knee replacement, limited by her left knee and would like to have her left knee fixed . PLAN: We are going to take her to the operating room and do left total knee replacement. The risks and benefits of this procedure were explained to the patient and include but not limited to DVT, PE, , infection, neurological injury, vascular injury, bleeding problem, pain, limited range of giovanni on, stiffness, failure to relieve her symptoms, incomplete relief of symptoms, etc. The patient unde rstands and desires to proceed. Informed consent was obtained. She does know to hold her Xarelto 3 days preop. We will give her prophylactic dose postop and then a therapeutic dose when she goes home. She is hoping to do this as an outpatient, but does not qualif y based on her cardiac history and anticoagulation. She will stay overnight. Take her metoprolol morning of surgery. Job ID: [id number]
--- NOTE | 2021-07-18 09:02 | Anesthesiology Consultation ---
Date of Service July 18, 2021 Assessment & Plan (1) Encounter for pre-operative examination: - Pt requiring admission post-operatively. Plan for recheck with KRYSTLE Cordova AM DOS due to possibility that patient may have a roommate. OR aware. Cordova order placed. - COVID screening: Per assessment on 07/17: No known COVID-19 positive contacts or current COVID-19 related symptoms. Travel screen negative. Patient vaccinated. Preop [place] test done [place]17 ([place]) was [place]. - S/P Right TKA (03/21/2017): SAB at L3-L4, 1 attempt + PNB at [facility]. No issues per anesthesia post-op progress note. - Cardiology office visit (05/30/21): "Coronary artery disease. No anginal-type pains. She does have dyspnea walking up 1 flight of stairs. However, this activity causes her to have significant back and knee discomfort.. Blood pressure under adequate control.. Remain on current cardiac medications and doses.. She can hold her Xarelto for her epidural injection.. Cardiology follow- up visit with me in 6 months." - Xarelto instructions: [facility] that in order for spinal anesthesia, Xarelto needs to be held 72 hours/3 days prior to surgery- patient was advised to check if okay with prescriber. Chart Review Chart Review: Acceptable Risk for Surgery (pending evaluation AM DOS) and Patient NOT seen in Pre Admission Testing History Surgery Operation Date: 07/19/21 10:40 Proposed Procedures p Left Total Knee Arthroplasty - Sami Franco MD Height/Weight Height: 5 ft 1 in Weight: 83.915 kg Allergies Allergy/AdvReac Type Severity Reaction Status Date / Time Iodinated Contrast Media Allergy Unknown Rash Verified 07/18/21 08:57 [Iodinated Contrast- Oral and IV Dye] tapentadol [From Nucynta] AdvReac Unknown Confusion Verified 07/17/21 15:04 Medications Home Medications Medication Instructions Recorded Confirmed Last Taken sucralfate 1 gram tablet (Carafate) 1 g PO QID PRN #360 tab 08/19/20 07/17/21 Unknown potassium chloride 10 mEq 20 meq PO UD PRN #90 tab 11/16/20 07/17/21 Unknown tablet,extended release rivaroxaban 20 mg tablet (Xarelto) 20 mg PO QPM #90 tab 09/15/21 04/25/22 Unknown atorvastatin 80 mg tablet (Lipitor) 80 mg PO HS #90 tab 01/17/21 07/17/21 Unknown furosemide 20 mg tablet 20 mg PO DAILY PRN #90 tab 01/17/21 07/17/21 Unknown metoprolol tartrate 25 mg tablet 12.5 mg PO BID #90 tab 01/17/21 07/17/21 Unknown Wheeled Walker #1 ea 03/22/21 06/21/21 Unknown acetaminophen 500 mg capsule 1,000 mg PO Q6H 30 Days #240 cap 04/12/21 07/17/21 Unknown gabapentin 600 mg tablet See Rx Instructions .ROUTE 05/19/21 07/17/21 Unknown .COMPLEX #360 tab hydrocodone 7.5 mg-acetaminophen 2 tab PO Q8H PRN #42 tab 05/23/21 07/17/21 Unknown 325 mg tablet tramadol 50 mg tablet 100 mg PO Q8H PRN #180 tab 05/23/21 07/17/21 Unknown cephalexin 500 mg capsule 500 mg PO BID #6 cap 06/12/21 07/17/21 Unknown ondansetron HCl 4 mg tablet 4 mg PO Q8H PRN #270 tab 06/13/21 07/17/21 Unknown duloxetine 30 mg capsule,delayed 30 mg PO QAM 07/17/21 07/17/21 Unknown release pantoprazole 40 mg tablet,delayed 40 mg PO QAM 07/17/21 07/17/21 Unknown release Past Medical History Medical History Atrial flutter 2018-paroxysmal atrial flutter development during bowel resection with post- op hypotension and hypoxia-spontaneous conversion to sinus rhythm CAD (coronary artery disease) Total early mid LAD occlusion with left to left and right to left collaterals- normal LM, mild LCx 20%, 10-30% prox and mid RCA on 2013 cath per cardio note- no stents/intervention Cervical facet syndrome Cervical spinal stenosis C5-6 Chronic diastolic (congestive) heart failure follows with [facility] cardioDr. Smith- 2013 EF 35% > 2019 EF 55-60% Epidural fibrosis left S1 nerve GERD (gastroesophageal reflux disease) controlled, stable per pt History of COVID-19 01/2021 (home test) > headache, loss of taste and smell, congested > resolved History of MD (myocardial infarction) 2013 > no stents Hyperlipidemia Left lumbar radiculitis Lumbar postlaminectomy syndrome Obesity Osteoarthritis Sacroiliitis Past Family History Family History Mother Heart disease Myocardial infarction Colorectal cancer, Onset Age: 75 Father Hypothyroidism Grandfather (Maternal) Family history of diabetes mellitus Denies family history of Ovarian cancer Prostate cancer Breast cancer Lung cancer Past Surgical History Surgical History Awareness under anesthesia during cataract surgery History of bilateral tubal ligation History of cardiac cath 2013 > no stents History of cholecystectomy History of colonoscopy History of esophagogastroduodenoscopy (EGD) History of intestinal surgery 2018-open laparotomy with small bowel resection, repair of strangulated right femoral hernia complicated by shock, develop of tachyarrhythmia History of left cataract surgery History of lumbar fusion Posterior decompression and instrumented fusion of L4-S1 03/19/2014 Dr. Montesinos History of mandibular surgery / DENIES LIMITATIONS WITH JAW MOVEMENT History of right cataract surgery History of total right knee replacement 03/21/2017: SAB at L3-L4, 1 attempt + PNB at [facility]. No issues per anesthesia post-op progress note. Hx of carpal tunnel repair right Nausea and vomiting after administration of anesthetic agent S/P lumbar laminectomy 03/09/2014 Social History Smoking Status: Light tobacco smoker tobacco type: cigarettes Smoking cigarettes per day: 3-4 per day, somedays none Do You Dip or Chew Tobacco: No Hx Alcohol Use: No Alcohol type: hard liquor alcohol intake frequency: holidays/special occasions only Hx Substance Use: No substance use type: does not use Lab Results Anesthesia Preop Results Results Anesthesia Widget: WBC 5.91 K/uL (4.8-10.8) 07/12/21 Hgb 13.2 g/dL (12.0-16.0) 07/12/21 Hct 40.7 % (37-47) 07/12/21 Plt 234 K/uL (130-400) 07/12/21 Na 141 mmol/L (136-145) 07/12/21 K 3.8 mmol/L (3.5-5.1) 07/12/21 Cl 103 mmol/L (98-107) 07/12/21 CO2 31 mmol/L (21-32) 07/12/21 BUN 13 mg/dl (6-23) 07/12/21 Creat 1.02 mg/dl (0.6-1.2) 07/12/21 Glucose Level 98 mg/dl (70-99(Fasting)) 07/12/21 PT 14.0 Seconds (9.0-12.0) H 07/12/21 INR 1.3 (0.9-1.1) H 07/12/21 TSH 3.255 uIu/ml (0.300-4.500) 07/12/21 HA1c 5.5 % (4.5-5.6) 05/30/21 Urine Color Dark Yellow 05/30/21 Urine Appearance Clear (Clear) 05/30/21 Urine pH 5.0 (4.5-7.5) 05/30/21 Urine Specific [place] 1.037 (1.000-1.030) H 05/30/21 Urine Protein 1+ (Negative) H 05/30/21 Urine Glucose (UA) Negative (Negative) 05/30/21 Urine Ketones 1+ (Negative) H 05/30/21 Urine Blood Negative (Negative) 05/30/21 Urine Nitrite Positive (Negative) A 05/30/21 Urine Bilirubin 2+ (Negative) H 05/30/21 Urine Urobilinogen Negative (Negative) 05/30/21 Urine Leukocyte Esterase Trace (Negative) H 05/30/21 Urine WBC (Auto) 1-5 /hpf (0-5) 05/30/21 Urine RBC (Auto) 0-4 /hpf (0-4) 05/30/21 Urine Hyaline Casts (Auto) 5-10 /lpf (0-5) H 05/30/21 Urine Epithelial Cells (Auto) >30 /lpf (0-5) H 05/30/21 Urine Bacteria (Auto) Negative (Negative) 05/30/21 Blood Type A Positive 07/12/21 Antibody Screen NEGATIVE 07/12/21 Testing Laboratory Results Mildly elevated coags on rivaroxaban > at anesthesiologist discretion AM DOS if recheck needed* Electrocardiogram Date: 03/08/21 Normal sinus rhythm, rate 74 bpm. Low voltage QRS. Septal infarct (cited on or before 11/05/2019) No significant change was found when compared with ECG of 11/05/2019. Chest X-Ray Date: 03/08/21 The heart is mildly enlarged noting atherosclerotic calcification of the thoracic aorta. The pulmonary vasculature is noncongested. Chronic interstitial thickening is similar to previous. There is mild bibasilar atelectasis. The lungs and pleural spaces are otherwise clear. There is no pneumothorax. The skeletal structures are osteopenic. The bony thorax appears intact. An intrathecal leads project over the thoracic spine. Cholecystectomy clips are no dian in the right upper quadrant. IMPRESSION: Mild cardiomegaly with no active disease in the chest. Echocardiogram Date: 01/28/19 Low normal overall left ventricular systolic function. Septal and apical wall motion abnormalities of the left ventricle. No significant change compared to an echocardiogram March 08, 2017. Grade I left ventricular diastolic dysfunction. Trace mitral regurgitation. EF 50-55% Normal left ventricular wall thickness
[~2021-07-19 08:13] MED LIST changes: -ACET-1056 PO; -ASPI81TA28 PO; -ATOR-26 PO; +BUPIVACAINE 0.5 % 5 MG/1 ML MPF 30ML VIAL ONE; -BUPIVACAINE 0.5 % 5 MG/1 ML PF 10ML VIAL ONE; -BUPIVACAINE LIPOSOME 266 MG, BUPIVACAINE/EPINEPHRINE INJ 50 ML, SODIUM CHLORIDE 0.9% PF... INFIL SCH; +BUPIVACAINE LIPOSOME/PF 266 MG, BUPIVACAINE/EPINEPHRINE 50 ML, SODIUM CHLORIDE 0.9% 30 ... INFIL SCH; -CEFAZOLIN 2000MG IV PUSH 10 ML IV SCH; -DOXY25TA7 PO; -FRRS300 PO; -GABAPENTIN 300 MG CAP PO SCH; -LACTATED RINGER'S 1000ML 1,000 ML IV SCH; -LACTATED RINGER'S 1000ML 500 ML IV ONE; -LACTATED RINGER'S 1000ML IV SCH; -LISI-729 PO; +LR 500ML BOLUS, THEN 15ML/HR IV SCH; +LR 60ML/HR IV SCH; -METO25TA3 PO; -METOCLOPRAMIDE HCL 10 MG TAB PO SCH; +METOCLOPRAMIDE HCL 10 MG TABLET PO SCH; -NIAC500T11 PO; -PANT40TA PO; -PREG1CAP70 PO; +ROPIVACAINE 0.5% 5 MG/ML 30 ML VIAL ONE; -SCOPOLAMINE 1.5 MG TDSY TD SCH; -SUCR1TAB29 PO; +Scopolamine 1 MG TDSY TD SCH; -TRAM200T16 PO; +TRANEXAMIC ACID 1,000 MG **IV Intra-op IV SCH; -TRANEXAMIC ACID INJ 1,000 MG in SYRINGE 0 ML IV SCH; +ceFAZolin 2000MG 2,000 MG/15 ML SYR IV SCH
--- NOTE | 2021-07-19 08:38 | History & Physical Bridge Note ---
Date of Service July 19, 2021 History & Physical Bridge Note I have examined the patient, reviewed the History & Physical and in the interval since the performance of the History & Physical I have noted the following changes of clinical significance: no changes noted
[2021-07-19] MEDS ORDERED: MIDAZOLAM HCL 1 MG/ML 2ML VIAL ONE ×2 (09:14)
[2021-07-19] MEDS ORDERED: PROPOFOL IV EMULSION 10 MG/ML 20 ML VIAL IV ONE (09:17)
[2021-07-19] MEDS ORDERED: SODIUM CHLORIDE 0.9% PF 50 ML VIAL ONE (10:21)
[2021-07-19] MEDS ORDERED: BUPIVACAINE LIPOSOME 1.3% 266 MG/20 ML VIAL ONE (10:21)
[2021-07-19] MEDS ORDERED: BUPIVACAINE/EPINEPHRINE 0.25% 1:200,000 30 ML VIAL ONE (10:21)
[2021-07-19] MEDS ORDERED: PHENYLEPHRINE 100MCG/ML 5ML SYR ONE (10:44)
[2021-07-19] MEDS ORDERED: ePHEDrine sulfate 50 MG/ML SYR ONE (10:44)
--- NOTE | 2021-07-19 12:36 | Operative Report ---
PG Post Operative Report Pre & Post Diagnosis Operation Date: 07/19/21 10:40 Pre-Op Diagnosis: Left Knee Advanced Degenerative Joint Disease Post-Op Diagnosis: Left Knee Advanced Degenerative Joint Disease I identified the patient and participated in the time-out.: Yes Procedure Operation Date: 07/19/21 10:40 Actual Procedures p Left Total Knee Arthroplasty(Left) - Sami Franco MD Surgeon Sami Franco MD [employer] Cutter Finisher Chris Rogers PA-C Estimated Blood Loss 50 Findings Consistent with Post-Op Diagnosis Operative findings revealed advanced left knee tricompartment DJD. She had pretty extensive erosive disease in all 3 compartments most severe laterally. She had a fixed valgus deformity to her knee and severe eburnation of the lateral joint space. Moderate-sized joint effusion. Specimens Left knee sent for pathology. Anesthesia Type Spinal MAC Complications none Indications Patient is 66-year-old female is had a long history of knee problems. She underwent a right knee replaced in the past and is done well from this. She continued to be limited by left knee pain discomfort. She failed all conservative measures. She elected proceed with left total knee arthroplasty. Description of Procedure Operative implants consist of: 1. Biomet Vanguard size 62.5 left posterior stabilized femoral component. 2. Biomet size 67 tibial tray. 3. 12 mm posterior stabilized polyethylene insert. 4. 28 x 8 all polypatella. The patient was taken to the operating, identified, and placed on the operating table supine position protectors were properly padded. IV antibiotics tried by anesthesia team. A spinal anesthetic and abductor canal block had provided holding area. Frederick catheter was placed in sterile fashion. A left thigh tent was then placed in the left lower extremities then prepped and draped in usual sterile fashion. The left leg was elevated exsanguinated with use of an Esmarch in terms playset 300 mmHg. An anterior approach to the left knee was then performed to longitudinal incision centered over the patella. Sharp dissection was carried through subcutaneous tissue down below the extensor mechanism. A medial parapatellar arthrotomy incision was made. Some subperiosteal dissection was carried out medially. The fat pad was resected beneath patella tendon. Lateral patellofemoral ligament was released. Patella was subluxated laterally and the knee was flexed. The osteophytes were taken off distal femur. The ACL and PCL were then released from distal femur the tibia subluxated anteriorly. The external tibial alignment jig was then placed in the interface the tibia and adjusted 12 mm medially. Proximal tibial cut was made removed after 3 to 4 mm of bone from the medial side. The tibia was then sized to a size 67. Attention drawn the femur. The distal femur then with a sharp drill. Intramedullary canal was suction. A left 5 degree valgus cutting guide was placed. Distal femoral cutting block was pinned in place but distal femoral cut was made to take an additional 3 mm bone off distal femur. The knee was brought out into full extension and the extension gap was equalized by releasing just a small portion of the anterior IT band. The femur was then sized to a size 62.5. The AP cutting block was pinned parallel to the epicondylar axis which was 6 degrees of external rotation. Anterior cut, anterior chamfer, posterior cut, posterior chamfer cuts were made. The box cutting guide was placed in just slight lateral box cut was made. The knee was flexed. The remnants of the medial and lateral menisci were excised. The osteophyte taken off the posterior aspect of the femur. A trial femoral component was placed. The tibial tray was pinned in maximum external rotation and the drill and stem punch were used to create defect in proximal tibia for the tibial tray. Knee was then trialed and the 12 mm insert fit most appropriately. Attention drawn the patella. The patella was cleaned of all soft tissues. Patella thickness measured 20 mm in thickness was cut down to 13. Was sized to a size 28 patella. The lug holes were drilled for the 28 patella. The lateral osteophyte was removed. Patella button was placed. Knee was taken through range of motion and the patella tracked nicely with no thumbs test. Attention was then drawn toward placing the permanent components. Nupathe all trial components were removed. Bone plug was placed in the distal femur limit blood loss. Double batch Palacos G cement was mixed. A Biomet Vanguard size 62.5 left posterior stabilized femoral component, a size 67 tibial tray, 12 mm posterior stabilized polyethylene insert, and a 28 x 8 all polypatella then cemented in place. Knee was brought out into full extension until cement hardened. Final cement check was then performed. P ericapsular tissues were injected with a total of 100 cc of combination of 20 cc of Exparel, 30 cc normal saline, 50 cc of quarter percent Marcaine with epinephrine. Patient did receive 1 g tranexamic acid. The tourniquet was let down for final tourniquet time 58 minutes. Hemostasis reduced electrocautery. The extensor neck was then closed with combination 1 PDS suture #1 Vicryl suture in [id number] fashion. Extensor mechanism checked found to be intact with subcutaneous tissue then closed with 2 Dexon suture in a buried interrupted fashion skin was closed skin jillian. Leg was then cleaned and dried a sterile dressing was Xeroform, 4 x 4's, sterile cast padding, Mendez bandage were applied. Patient then transferred to the recovery room in stable condition. Patient tolerated procedure well and there were no complications.Chris Rogers, my physician assistant accounting manager, was present for the entire procedure. His assistance was essential and required for appropriate patient positioning, prepping and draping, surgical exposure, performing the technical details of the operation, placement the implants, closure of the wound, and placement of the sterile bandage. I attest to the content of the Intraoperative Record and any orders documented therein. Any exceptions are noted below.
--- NOTE | 2021-07-19 12:50 | XRay Report ---
TWO VIEWS LEFT KNEE CLINICAL HISTORY: Postoperative examination. FINDINGS: AP and crosstable lateral portable views of the left knee are obtained. A left knee arthrop lasty is in near anatomic alignment. There has been undersurface remodeling of the patella. No acute fracture is seen. There are expected postoperative changes around the knee including skin clips, soft tissue edema, and subcutaneous gas. IMPRESSION: Expected postoperative changes status post left knee arthroplasty. No acute fracture is s een. ACT 112: Negative or not required by law. Electronically signed by: Gregorio Huizar M.D. 07/19/2021 12:48 PM
--- NOTE | 2021-07-19 13:15 | Anesthesiology Progress Note ---
Date of Service July 19, 2021 Anesthesia Post Procedure Vital Signs Vital Signs: Temp Pulse Pulse Resp BP BP Pulse Ox 07/19/21 13:05 71 16 107/48 L 94 07/19/21 12:55 63 19 109/57 L 94 07/19/21 12:45 72 16 98/53 L 97 07/19/21 12:35 72 10 L 91/52 L 100 07/19/21 12:28 36.5 C 76 17 97/55 L 99 07/19/21 08:40 36.8 C 66 20 132/75 95 Transfer of Care Handoff Completed per policy Notes Mental Status: alert / awake / arousable and participated in evaluation Patient Amnestic to Procedure: Yes Nausea / Vomiting: adequately controlled Pain: adequately controlled Airway Patency, RR, SpO2: stable & adequate BP & HR: stable & adequate Hydration State: stable & adequate Anesthetic Complications: no major complications apparent and Pt Satisfied with anesthetic care
[2021-07-19] MEDS ORDERED: METOCLOPRAMIDE HCL INJ 5 MG/ML 2 ML VIAL IV PRN (13:51)
[2021-07-19] MEDS ORDERED: SUCRALFATE 1 GM TAB PO PRN (13:51)
[2021-07-19] MEDS ORDERED: bisacodyL 10 MG SUPP PR PRN (13:51)
[2021-07-19] MEDS ORDERED: oxyCODONE HCL IR 5 MG TAB (IMMEDIATE RELEASE) PO PRN (13:51)
[2021-07-19] MEDS ORDERED: NALOXONE HCL 0.4 MG/1 ML VIAL/CARP IV PRN (13:51)
[2021-07-19] MEDS ORDERED: POTASSIUM CHLORIDE CRTAB 20 MEQ TABCR PO PRN (13:51)
[2021-07-19] MEDS ORDERED: SODIUM CHLORIDE 0.9% 1000ML 1,000 ML IV SCH (13:51)
[2021-07-19] MEDS ORDERED: FUROSEMIDE 20 MG TAB PO PRN (13:51)
[2021-07-19] MEDS ORDERED: HYDROmorphone INJ 0.5 MG/0.5 ML SYR IV PRN (13:51)
[2021-07-19] MEDS ORDERED: ALUMINUM/MAGNESIUM SUSP 30 ML UDC PO PRN (13:51)
[2021-07-19] MEDS ORDERED: MAGNESIUM HYDROXIDE SUSP 30 ML UDC PO PRN (13:51)
[2021-07-19] MEDS: KETOROLAC TROMETHAMINE 15 MG/ML VIAL IV SCH ×2 (15:48→23:23)
[2021-07-19] MEDS: Scopolamine CHECK PATCH PLACEMENT SCH ×2 (15:51→23:23)
[2021-07-19] MEDS: ASCORBIC ACID 500 MG TAB PO SCH (16:00)
[2021-07-19] MEDS: ACETAMINOPHEN 500 MG TAB PO SCH (16:01)
[2021-07-19] MEDS: traMADol HCL 50 MG TABLET PO PRN (17:23)
[2021-07-19] MEDS ORDERED: TRANEXAMIC ACID / 0.7% NACL 1,000 MG/100 ML BAG IV SCH (18:30)
[2021-07-19] MEDS: ceFAZolin 2000MG 2,000 MG/15 ML SYR IV SCH (20:48)
[2021-07-19] MEDS: DOCUSATE SODIUM 100 MG CAP PO SCH (20:50)
[2021-07-19] MEDS ORDERED: SENNA 8.6 MG TAB PO SCH (21:00)
[2021-07-19] MEDS ORDERED: ATORVASTATIN 40 MG TAB PO SCH (21:00)
[2021-07-19] MEDS: METOPROLOL TARTRATE 25 MG TAB PO SCH (21:19)
[2021-07-20] MEDS: ceFAZolin 2000MG 2,000 MG/15 ML SYR IV SCH (03:41)
[2021-07-20] MEDS: KETOROLAC TROMETHAMINE 15 MG/ML VIAL IV SCH ×2 (05:59→13:27)
[2021-07-20] MEDS: ACETAMINOPHEN 500 MG TAB PO SCH ×2 (06:00→13:26)
[2021-07-20 07:04] LABS: Hematocrit (blood only) 35.8 % (37-47); Hemoglobin 12.1 g/dL (12.0-16.0); Mean Corpuscular Hemoglobin 31.3 pg (25-34); Mean Corpuscular Hgb Conc 33.8 g/dL (32-36); Mean Corpuscular Volume 92.7 fL (80-100); Mean Platelet Volume 10.5 fL (7.4-10.4); Platelet Count 149 K/uL (130-400); RDW Coefficient of Variation 13.2 % (11.5-14.5); RDW Standard Deviation 44.4 fL (36.4-46.3); Red Blood Count 3.86 M/uL (4.2-5.4); White Blood Count 5.72 K/uL (4.8-10.8)
[2021-07-20 07:26] LABS: BUN Creatinine Ratio 16.9 (10-20); Calcium 8.9 mg/dl (8.5-10.1); Est GFR (African American) 102.2 ml/min; Est GFR (Non-African American) 88.1 ml/min; Potassium 3.5 mmol/L (3.5-5.1)
[2021-07-20] MEDS ORDERED: dexAMETHasone 10 MG in SYRINGE 0 ML IV SCH (08:00)
[2021-07-20] MEDS: ONDANSETRON INJ 2 MG/ML 2 ML VIAL IV PRN ×2 (08:12→08:25)
[2021-07-20] MEDS ORDERED: PANTOprazole 40 MG TAB PO SCH (09:00)
[2021-07-20] MEDS ORDERED: MULTIVITAMIN TAB PO SCH (09:00)
[2021-07-20] MEDS ORDERED: DULoxetine HCL 30 MG CAP PO SCH (09:00)
[2021-07-20] MEDS ORDERED: NICOTINE 14 MG/24 HR PATCH TD SCH (09:00)
[2021-07-20] MEDS: ASCORBIC ACID 500 MG TAB PO SCH (09:04)
[2021-07-20] MEDS: Scopolamine CHECK PATCH PLACEMENT SCH ×2 (09:04→16:05)
[2021-07-20] MEDS: DOCUSATE SODIUM 100 MG CAP PO SCH (09:05)
[2021-07-20] MEDS: traMADol HCL 50 MG TABLET PO PRN (09:10)
[2021-07-20] MEDS: METOPROLOL TARTRATE 25 MG TAB PO SCH (10:38)
[2021-07-20] MEDS ORDERED: RIVAROXABAN 10 MG TABLET PO SCH (13:00)
--- NOTE | 2021-07-20 18:23 | Progress Notes ---
DATE OF SERVICE: 07/20/2021. SUBJECTIVE: A 66-year-old white female, postoperative day 1 from a left knee replacement. She is do ing pretty well. Therapy went well. Anxious to get home. No chest pain or shortness of breath. Pa in is well controlled. OBJECTIVE: VITAL SIGNS: Temperature 36.8. Vital signs are stable. PHYSICAL EXAMINATION: GENERAL: Shows a pleasant middle-aged female. She is sitting up in her bedside chair and looks read y to go. LUNGS: Clear to auscultation. HEART: Regular rate and rhythm. ABDOMEN: Soft, nontender, nondistended. EXTREMITIES: Grossly neurovascularly intact except as follows: Examination of the left lower extrem ity reveals the dressing to be clean, dry and intact. She can dorsiflex and plantarflex her foot gerardo ropriately. She can do a good straight leg raise. LABORATORY DATA: Hemoglobin 12.1, hematocrit 35.8. Electrolytes are stable. ASSESSMENT: A 66-year-old white female, postoperative day 1 from left knee replacement, doing pretty well. Pain is controlled. She is neurologically intact. She is hoping to go home. PLAN: 1. DVT prophylaxis including thigh-high TEDs, SCDs and back on Xarelto. She is on a prophylactic do se today, therapeutic dose on discharge. 2. PT, OT, weightbear as tolerated. Left total knee protocol. 3. Pain control, doing well with current pain regimen. 4. Disposition: Plan to discharge to home with some home health today. Job ID: [id number]
--- NOTE | 2021-07-25 14:29 | Discharge Summary ---
Date of Service July 25, 2021 Discharge Data Procedures Performed Operation Date: 07/19/21 10:40 Actual Procedures p Left Total Knee Arthroplasty(Left) - Sami Franco MD Hospital Course (1) Status post total left knee replacement: This patient is a 66 year old female admitted on 07/19/21 and underwent total knee arthroplasty. She tolerated the procedure well and there were no complications. Transferred to the PACU post op and later to the orthopedic floor for further care. She was given ancef for antibiotic prophylaxis. She was also given ISABEL stockings, SCDs, and xarelto for DVT prophylaxis. Hemoglobin, hematocrit, and vital signs were monitored during her hospital stay and remained stable. Did not require any blood transfusions. There were no complications during her hospital stay. By post op day #1 the patient was tolerating a regular diet, pain was reasonably controlled with oral pain medicine, and she was participating in physical therapy. On post op day #1 the patient was discharged home and set up with home health care. She was given printed discharge instructions including prescriptions for extra strength tylenol, xarelto, and oxycodone. Continue ph ysical therapy, weight bearing as tolerated. Continue ISABEL stockings. Follow up approximately 2 weeks post op or sooner if there are problems or concerns. Coding Level of Care Code None Diagnoses Status post total left knee replacement Z96.652
== END 2021-07-20 16:39 | disposition home health service (06) ==
LOC: 3N 08:13 → ASU 08:13 → 3E 19:25